=== PATIENT | female | born 1985 ===

== ENCOUNTER 2020-06-20 21:29 | Emergency (ER) | payer OTHER, SELFPAY ==
[2020-06-20 21:36] VITALS: BP 154/88; PULSE 99; RESP 22; TEMP 36.7; O2SAT 94; BMI 25.0
--- NOTE | 2020-06-20 21:44 | XR_ITS ---
EXAMINATION: XR CHEST CLINICAL INFORMATION: Shortness of breath COMPARISON: None TECHNIQUE: Frontal view of the chest was obtained. FINDINGS: No significant abnormality is noted involving the heart, lungs, mediastinum, bony thorax or soft tissues. XR/XR chest 1V IMPRESSION: Unremarkable examination.
--- NOTE | 2020-06-20 21:45 | ECG_ITS ---
Test Reason : SOB Blood Pressure : / mmHG Vent. Rate : 104 BPM Atrial Rate : 104 BPM P-R Int : 146 ms QRS Dur : 074 ms QT Int : 314 ms P-R-T Axes : 035 066 070 degrees QTc Int : 412 ms Sinus tachycardia Otherwise normal ECG No previous ECGs available Referred By: Michael Call Electronically Signed By:DAREN GAUTAM
[2020-06-20] MEDS: methylPREDNISolone Sod Succ/PF 125 MG/2 ML VIAL IVPUSH (21:49)
[2020-06-20 21:54] VITALS: PULSE 127; O2SAT 100
[2020-06-20 21:57] LABS: Basophils Absolute Auto 0.1 X10*3/uL (0.0-0.2); Basophils Percent Auto 0.4 % (0-2); Eosinophils Absolute Auto 1.2 X10*3/uL (0.0-0.4); Eosinophils Percent Auto 9.5 % (0-4); Hematocrit 39.3 % (37-47); Hemoglobin 13.4 g/dl (12.0-16.0); Imm Gran Abs Auto 0.03 X10*3/uL (0.00-0.03); Imm Gran Pct Auto 0.2 % (0.0-0.4); Lymphocytes Absolute Auto 4.7 X10*3/uL (1.2-4.9); Lymphocytes Percent Auto 37.9 % (20-40); MANUAL DIFF FLAG NO; Mean Corpuscular HGB Conc 34.1 g/dl (31.0-35.0); Mean Corpuscular Volume 93.8 fL (80-98); Mean Platelet Volume 9.4 fL (9.4-12.3); Monocytes Absolute Auto 0.7 X10*3/uL (0.1-1.2); Monocytes Percent Auto 5.3 % (2-11); Neutrophils Absolute Auto 5.8 X10*3/uL (2.0-8.3); Neutrophils Percent Auto 46.7 % (45-73); Platelet Count 295 X10*3/uL (160-400); Red Blood Count 4.19 X10*6/uL (4.20-5.50); White Blood Count 12.4 X10*3/uL (4.8-10.8)
[2020-06-20 22:04] VITALS: PULSE 127; O2SAT 100
[2020-06-20] MEDS: Albuterol Sulfate (0.083%) 2.5 MG/3 ML VIAL.NEB INHALE ×2 (22:04→22:15)
[2020-06-20] MEDS: Magnesium Sulfate/H2O 2 GM/50 ML PIGGYBACK IV (22:13)
[2020-06-20 22:15] VITALS: PULSE 137; O2SAT 99
[2020-06-20 22:29] LABS: Alanine Aminotransferase 12 U/L (0-31); Albumin Level 4.3 g/dL (3.5-5.0); Alkaline Phosphatase 67 U/L (39-117); Anion Gap 16 (12-20); Aspartate Amino Transferase 22 U/L (5-31); Bilirubin Total 0.6 mg/dL (0.0-1.0); Blood Urea Nitrogen 15 mg/dL (9-16); Calcium 9.1 mg/dL (8.4-10.2); Carbon Dioxide 22 mmol/L (22-29); Chloride 106 mmol/L (96-108); Creatinine Clr Calc Pharmacy 82.8; Estimated Glomerular Filt Rate > 60; Glucose Fasting 109 mg/dL (60-99); Potassium 3.9 mmol/l (3.3-5.1); Sodium 140 mmol/L (135-145); Total Protein 7.4 g/dL (6.5-8.0)
--- NOTE | 2020-06-20 22:34 | PC.NURSE ---
DECREASED WORK OF BREATHING AND POSITIVE EFFECT NOTED AFTER MEDICATION ADMINISTRATIONS. SINUS TACHYCARDIA ON REAMING MACHINE TENDER 130s AT THIS TIME. ALBUTEROL IN USE. RESPIRATORY THERAPIST REMAINS AT BEDSIDE, AND PATIENT HAS BEEN EVALUATED BY . WILL CONTINUE TO MONITOR.
[2020-06-20 22:39] LABS: Influenza A PCR NEGATIVE (Negative); Influenza B PCR NEGATIVE (Negative); Resp Syncy Virus RNA Qual PCR NEGATIVE (Negative); SARS COV2 PCR INHOUSE NEGATIVE (Negative)
[2020-06-20 22:49] VITALS: BP 132/69; PULSE 115; RESP 20; O2SAT 99
--- NOTE | 2020-06-20 23:04 | ED_ITS ---
HPI - SOB/Dyspnea General Chief Complaint: Dyspnea Stated Complaint: ASTHMA Time Seen by Provider: 06/20/20 21:41 Source: patient Mode of arrival: ambulatory Limitations: no limitations History of Present Illness HPI Narrative: 34-year-old female who presents to the emergency department for evaluation of shortness of breath. The patient has a history of asthma and has an albuterol inhaler and albuterol nebulizer only for treatment. She does not take a steroid inhaler. She states that she went shopping at the [employer] and then came home at around 7:30 p.m.. She states she was sitting at her table and became short of breath. She then used her albuterol nebulizer and albuterol inhaler with no relief for symptoms. Her breathing got more labored therefore she drove herself to the emergency department for evaluation. On presentation to the emergency department the patient was in moderate to severe respiratory distress, talking in 1-2 word sentences, she had lot audible wheezing and was tachypneic. She was brought to a treatment room immediately and evaluated by me upon arrival to the emergency department. The patient states that she uses her albuterol inhaler frequently during the week. She states that she has a chronic cough since October 2019 which is mainly nonproductive. She states that she has frequent episodes of shortness of breath. She denied fever, chills, nausea, vomiting, diarrhea, myalgias or arthralgias, loss of sense of taste or smell, she has no known COVID exposure. She denies tobacco, alcohol and drug use. Related Data Previous Rx's Medication Instructions Recorded albuterol sulfate 2 inh INHALATION Q4H PRN #18 g 06/21/20 albuterol sulfate 2.5 mg INHALATION Q4-6H PRN #90 ml 06/21/20 fluticasone propion-salmeterol 1 inh INHALATION BID #60 ea 06/21/20 [Advair Diskus] fluticasone propionate [Flovent 1 puff INHALATION BID #12 g 06/21/20 HFA] prednisone 60 mg PO DAILY 5 Days #15 tab 06/21/20 Allergies Allergy/AdvReac Type Severity Reaction Status Date / Time No Known Allergies Allergy Verified 06/20/20 21:41 Review of Systems Review of Systems: Yes all other systems are reviewed and are negative Constitutional: Constitutional: Reports as per HPI Eyes: Eyes: Reports as per HPI ENT: Reports as per HPI Cardiovascular: Cardiovascular: Reports as per HPI Respiratory: Respiratory: Reports as per HPI Gastrointestinal: Gastrointestinal: Reports as per HPI Genitourinary: Genitourinary: Reports as per HPI Musculoskeletal: Musculoskeletal: Reports as per HPI Integumentary/Breasts: Skin/Breast: Reports as per HPI Neurologic: Reports as per HPI and Reports Abnormal speech present Psychiatric: Psychiatric: Reports as per HPI Allergic/Immunologic: Allergic/Immunologic: Reports as per HPI [facility] Past Medical History [facility] Narrative: Patient states she is employed. Denies tobacco, alcohol or drug use. Social History Social History Alcohol intake: current Alcohol intake frequency: holidays/special occasions only Smoking Status: Former smoker Smoked in Last 30 Days: No Use of substances other than those prescribed or required for medical reasons: No Advance Directives: No Physical Exam Vital Signs: Vital Signs: Last Vital Signs Temp 98.0 F 06/20/20 21:36 Pulse 106 H 06/21/20 00:00 Resp 18 06/21/20 00:00 BP 116/56 L 06/21/20 00:00 Pulse Ox 97 06/21/20 00:00 Body Mass Index 25.0 Const: General: cooperative, alert, awake and ill appearing (Moderate to severe respiratory distress, talking in 1-2 word sentences) acutely Nutritional Appearance: well nourished Orientation/consciousness: oriented to person and oriented to place HENMT: Head: Yes normal to inspection, Yes normocephalic and Yes atraumatic Ears: external ears normal General nose exam: Normal external nose present Face and sinus: Yes normal facial exam Mouth: Normal oral and palatal mucosa present Throat: Yes posterior oropharynx normal Eyes: General: appearance normal, both eyes and all related structures Periorbital: periorbital findings normal Eyelids: Yes eyelids normal Conjunctivae: conjunctivae normal Sclerae: sclerae normal Corneas: corneas normal Pupils: Equal, round and reactive pupils present Direct Ophth almoscopy: normal light reflex Neck: Neck: Yes normal visual inspection and Yes supple Lymphatic: no lymphadenopathy noted Chest: Chest palpation & inspection: normal inspection of the chest and normal palpation of entire chest wall Resp: Effort & Inspection: audible wheezes, labored, respiratory distress and tachypneic Auscultation: no crackles, no rales, rhonchi throughout and wheezes throughout Cardio: Rate: regular rate Rhythm: regular rhythm Heart sounds: S1 normal heart sound present, S2 normal heart sound present and no murmurs GI: Inspection: No distended Palpation (GI): Soft to palpation, nontender, no guarding and No hepatosplenomegaly present Auscultation: normal bowel sounds : General: Yes no CVA tenderness Back/Spine/Pelvis: Back: no CVA tenderness Skin: General skin exam: no rashes or lesions noted Lesions: no lesions Rashes: no rashes Wounds: no wounds Neuro: General: oriented to person and oriented to place Cranial nerves: Yes CN's II-XII intact bilaterally and Yes Equal, round and reactive pupils present Cognition (Neuro): normal cognition Speech: Abnormal speech present Motor exam (neuro): 5/5 motor strength present throughout Extrem: General: Yes normal to inspection, Yes full ROM, Yes no pedal edema and Yes no calf tenderness Psych: Appearance: grossly normal Mental Status: mental status grossly normal Affect: Anxious affect present Thought process: Normal thought process present Course Course Course Narrative: 34-year-old female with a history of asthma who presents to the emergency department for evaluation of a sudden onset shortness of breath with wheezing. On presentation the patient was in moderate to severe respiratory distress, talking in 1-2 word sentences, tachypneic with loud audible wheezing. Lung exam revealed wheezing and rhonchi throughout. The patient was brought immediately to a treatment room. She was treated with albuterol nebulizer x3, DuoNeb x1, these medicines were given through a BAN nebulizer. She also received magnesium 2 g IV. The patient significantly improved after the above treatment and her wheezing and tachypnea resolved. 0023: Patient's laboratory evaluation [place] [id number] with otherwise was unremarkable. The patient's COVID, influenza and RSV tests were negative. Chest x-ray revealed no evidence of pneumonia. The patient was observed in the emergency department for 3 hours and during this time she had no rebound. The patient will be treated with prednisone 60 mg once a day for 5 days. She was also given a prescription for Flovent and Advair Diskus. I told her that if the Advair Diskus was not covered by her insurance that she should get the Flovent filled and use it as prescribed. Patient also needs a refill on her albuterol inhaler and albuterol nebulizer. Critical Care: The patient was critically ill with a high probability of imminent or life threatening deterioration. I spent greater than 30 minutes of discontinuous time evaluating the patient,delivering critical care at the bedside, discussing and evaluating pertinent data with consultants. Critical care time does not include time spent performing separately billable procedures or teaching. Total time spent performing critical care was 45 minutes. MDM - SOB/Dyspnea Medical Records Attestation: I reviewed the patient's medical records. Lab Data Attestation: I reviewed the patient's lab results. Result diagrams: 06/20/20 21:46 06/20/20 21:46 Labs: Lab Results 06/20/20 06/20/20 06/20/20 Range/Units 21:46 21:46 21:48 WBC 12.4 H (4.8-10.8) X10*3/uL RBC 4.19 L (4.20-5.50) X10*6/uL Hgb 13.4 (12.0-16.0) g/dl Hct 39.3 (37-47) % MCV 93.8 (80-98) fL MCH 32.0 (27.0-33.0) pg MCHC 34.1 (31.0-35.0) g/dl RDW 12.0 (11.0-16.0) % Plt Count 295 (160-400) X10*3/uL MPV 9.4 (9.4-12.3) fL Immature Gran % (Auto) 0.2 (0.0-0.4) % Neut % (Auto) 46.7 (45-73) % Lymph % (Auto) 37.9 (20-40) % Cochran % (Auto) 5.3 (2-11) % Eos % (Auto) 9.5 H (0-4) % Baso % (Auto) 0.4 (0-2) % Lymph # (Auto) 4.7 (1.2-4.9) X10*3/uL Cochran # (Auto) 0.7 (0.1-1.2) X10*3/uL Eos # (Auto) 1.2 H (0.0-0.4) X10*3/uL Baso # (Auto) 0.1 (0.0-0.2) X10*3/uL Abs Immat Gran (auto) 0.03 (0.00-0.03) X10*3/uL Absolute Neuts (auto) 5.8 (2.0-8.3) X10*3/uL Absolute Nucleated RBC 0.000 (0.0-0.012) X10*3/uL Nucleated RBC % (auto) 0.0 (0.0-0.2) /100WBC Sodium 140 (135-145) mmol/L Potassium 3.9 (3.3-5.1) mmol/l Chloride 106 (96-108) mmol/L Carbon Dioxide 22 (22-29) mmol/L Anion Gap 16 (12-20) BUN 15 (9-16) mg/dL Creatinine 0.87 (0.5-1.4) mg/dL Estim Creat Clear Calc 82.8 Estimated GFR > 60 Fasting Glucose 109 H (60-99) mg/dL Calcium 9.1 (8.4-10.2) mg/dL Total Bilirubin 0.6 (0.0-1.0) mg/dL AST 22 (5-31) U/L ALT 12 (0-31) U/L Alkaline Phosphatase 67 (39-117) U/L Total Protein 7.4 (6.5-8.0) g/dL Albumin 4.3 (3.5-5.0) g/dL Coronavirus (PCR) NEGATIVE (Negative) Influenza Type A (PCR) NEGATIVE (Negative) Influenza Type B (PCR) NEGATIVE (Negative) RSV RNA Qual (PCR) NEGATIVE (Negative) ECG Data Attestation: I personally reviewed and interpreted this ECG as follows: ECG interpretation date: 06/20/20 ECG interpretation time: 21:45 Prior ECG tracings: not available for review Interpretation: Sinus tachycardia with a rate of 104, normal [place], QRS and QTC intervals, no T-wave abnormalities, no ST segment elevation or depression. No old EKG for comparison. Discharge Plan Discharge Clinical Impression: Asthma with exacerbation Qualifiers: Asthma severity: severe Asthma persistence: unspecified Qualified Code(s): J45.901 - Unspecified asthma with (acute) exacerbation Patient Disposition: Home, Self-Care Instructions: Asthma (ED) Additional Instructions: Your blood work was unremarkable. Your chest x-ray was normal with no evidence of pneumonia. Your COVID-19 and influenza test were negative. Take prednisone 60 mg once a day for 5 days. I gave you a prescription for Flovent and Advair Diskus. If your insurance does not cover the Advair Diskus medication then get the Flovent filled instead. Continue to use your albuterol rescue inhaler and your albuterol nebulizer as prescribed. Follow-up with your doctor in 2 days for re-evaluation. Please return to the emergency department if your symptoms get worse or if you develop any new symptoms that are concerning to you. Prescriptions: New fluticasone propion-salmeterol [Advair Diskus] 250-50 mcg/dose blister with device 1 inh inhalation BID Qty: 60 RF: 0 Flovent HFA 220 mcg/actuation HFA aerosol inhaler 1 puff inhalation BID Qty: 12 RF: 0 albuterol sulfate 2.5 mg /3 mL (0.083 %) solution for nebulization 2.5 mg inhalation Q4-6H PRN (Reason: shortness of breath or wheezing) Qty: 90 RF: 0 albuterol sulfate 90 mcg/actuation HFA aerosol inhaler 2 inh inhalation Q4H PRN (Reason: shortness of breath or wheezing) Qty: 18 RF: 0 prednisone 20 mg tablet 60 mg PO DAILY 5 Days Qty: 15 RF: 0 Interventions: ED Discharge Assessment Last Done: 06/21/20 00:45 Discharge Date/Time: 06/21/20 00:46
[2020-06-21] VITALS: BP 116/56; PULSE 106; RESP 18; O2SAT 97
[2020-06-21] MEDS: Ibuprofen 600 MG TABLET PO (00:33)
== END 2020-06-21 00:46 | disposition home or self-care (01) ==
PROVIDERS: Emergency Provider Emergency Medicine Emergency Medical Services
DX: J45.51 Severe persistent asthma with (acute) exacerbation (principal); Z20.828 Contact with and (suspected) exposure to other viral communicable diseases; Z79.899 Other long term (current) drug therapy; Z87.891 Personal history of nicotine dependence
CPT/HCPCS: 0241U; 36415; 71045; 80053; 85025; 93005; 94640; 99284; J2930; J3475

== ENCOUNTER 2021-09-17 08:07 | Outpatient (REF) | payer OTHER, SELFPAY ==
--- NOTE | ~2021-09-17 | MR_ITS ---
EXAMINATION: MR BRAIN WITHOUT AND WITH CONTRAST CLINICAL INFORMATION: Headache. COMPARISON: None. TECHNIQUE: Multiplanar, multisequence imaging of the brain was performed before and after the intravenous administration of 6 mL of Gadavist. FINDINGS: No diffusion abnormalities are identified to suggest an acute infarct. The ventricles are normal in size. No mass effect or midline shift is seen. A few scattered punctate foci of T2 hyperintense signal change in the bifrontal white matter are nonspecific. No extra-axial fluid collections are seen. The brainstem and cerebellum are normal. There is no abnormal parenchymal or leptomeningeal enhancement. The gradient refocused acquisition demonstrates no pathologic magnetic susceptibility artifact to indicate underlying acute or chronic blood products. On the coronal T1 postcontrast acquisition, series 10, image 19/30, there is a questionable 3 mm focus of decreased differential enhancement in the left lateral aspect of the anterior pituitary lobe. This finding may alternatively be due to volume averaging artifact from the underlying sphenoid sinus cavity. The craniovertebral junction, marrow signal, and midline structures are normal. The major intracranial flow voids at the level of the [place] are preserved. The dural venous sinus flow voids are maintained. The mastoid air cells are well aerated. Mild ethmoid sinus mucosal thickening noted. MR/MR head/brain wo/w con IMPRESSION: No acute process. Question of a 3 mm lesion in the left lateral aspect of the anterior pituitary lobe versus volume averaging artifact. Suggest correlation with endocrine function as clinically warranted. If there is concern for a microadenoma, a dedicated pituitary MRI study could be obtained in follow-up for further evaluation.
== END 2021-09-17 08:08 | disposition home or self-care (01) ==
LOC: HO.MRI 08:07
PROVIDERS: Visit Provider Internal Medicine
DX: R51.9 Headache, unspecified (principal)
CPT/HCPCS: 70553; A9585

== ENCOUNTER → 2021-09-19 08:29 | Outpatient (BNVA) | payer OTHER, SELFPAY | PROVIDERS: PCP Internal Medicine; Visit Provider Psychiatry & Neurology Neurology ==

== ENCOUNTER 2021-10-06 13:34 | Outpatient (REF) | payer OTHER, SELFPAY | END 2021-10-06 13:35 | disposition home or self-care (01) | LOC: HO.HMGCLDS 13:34 | PROVIDERS: Visit Provider Internal Medicine | DX: Z13.89 Encounter for screening for other disorder (principal) ==

== ENCOUNTER 2021-10-11 09:02 | Outpatient (REF) | payer OTHER, SELFPAY ==
[2021-10-11 10:53] LABS: TSH reflex Free T4 0.68 uIU/mL (0.32-4.0)
[2021-10-12 08:31] LABS: Prolactin 11.5 ng/mL
[2021-10-14 18:17] LABS: Adrenocorticotropic Hormone 12 pg/mL (6-50)
[2021-10-16 14:26] LABS: IGF-1 (Somatomedin C) 110 ng/mL (53-331); IGF-1 Z Score (Female) -0.6 SD (-2.0 - +2.0)
== END 2021-10-11 09:03 | disposition home or self-care (01) ==
LOC: HO.LAB 09:02
PROVIDERS: PCP Internal Medicine; Visit Provider Internal Medicine
DX: R90.89 Other abnormal findings on diagnostic imaging of central nervous system (principal)
CPT/HCPCS: 36415; 82024; 84146; 84305; 84443

== ENCOUNTER → 2021-10-17 08:03 | Outpatient (BNVA) | payer OTHER, SELFPAY | PROVIDERS: PCP Internal Medicine; Referring Provider Internal Medicine; Visit Provider Nurse Practitioner | DX: Z13.89 Encounter for screening for other disorder (principal) ==

== ENCOUNTER → 2021-11-13 16:01 | Outpatient (REF) | payer OTHER, SELFPAY | LOC: HO.SL 16:01 | PROVIDERS: PCP Internal Medicine; Visit Provider Psychiatry & Neurology Neurology | DX: R06.83 Snoring (principal); G47.9 Sleep disorder, unspecified | CPT/HCPCS: 95806 ==

== ENCOUNTER → 2021-11-26 08:54 | Outpatient (BNVA) | payer OTHER, SELFPAY | PROVIDERS: PCP Internal Medicine; Visit Provider Psychiatry & Neurology Neurology | DX: R51.9 Headache, unspecified (principal) ==

== ENCOUNTER → 2021-11-28 16:15 | Outpatient (BNVA) | payer OTHER, SELFPAY | PROVIDERS: PCP Internal Medicine; Referring Provider Internal Medicine; Visit Provider Nurse Practitioner | DX: R13.10 Dysphagia, unspecified (principal) ==

== ENCOUNTER 2022-01-14 14:34 | Outpatient (REF) | payer OTHER, SELFPAY ==
--- NOTE | ~2022-01-14 | FL_ITS ---
EXAMINATION: FL MODIFIED BARIUM SWALLOW CLINICAL INFORMATION: R13.10 - Dysphagia, unspecified COMPARISON: None TECHNIQUE: Modified barium swallow examination is performed with imaging in the lateral view and the presence of the speech pathologist using a variety of barium consistencies. Barium pill also used. The exam is performed with fluoroscopic evaluation, videofluoroscopy, and some fluoroscopic spot views. Fluoroscopy time: 1.9 minutes DAP: 1.517 Gycm2 Fluoroscopic spot images: 1 FINDINGS: There is good oral control of the meal. No nasopharyngeal or laryngeal penetration. No aspiration. There is some intermittent mild undercoating of the epiglottis during swallowing. No laryngeal penetration. There is some intermittent posterior lingual escape with material pooling in the vallecula prior to initiation of active swallowing. No delay in transit of swallowed barium pill. See speech pathologist report for further assessment and recommendation. FL/FL barium swallow modified IMPRESSION: -Intermittent mild undercoating of epiglottis during swallowing. No laryngeal penetration or aspiration. -Intermittent posterior lingual escape with contrast pooling in vallecula prior to initiation of active swallowing. -See speech pathologist report for further assessment and recommendation.
--- NOTE | 2022-01-16 13:45 | MHC.SL.IMP ---
Date of Plan of Treatment: 01/14/22 Onset of Symptoms/Illness: 01/15/20 Date Treatment Started: 01/14/22 Admitting Diagnosis: Anxiety Asthma Depression Dysphagia Glaucoma Headache Primary Speech & Language Diagnosis: R13.12 Oropharyngeal Phase Dysphagia Reason for Today's Visit: 53507 Modified Barium Swallow Study Pre-evaluation Dietary Consistencies: Regular Pre-evaluation Liquid Consistency: Thin Pre-evaluation Medication Administration: Whole with Liquid Medical History: Modified Barium Swallow Study Fluoroscopic Evaluation of Swallowing Function CPT Code 96360 Evaluation Year: 2021 Reason for Study: Patient reports difficulty swallowing. Referring Physician: Oralia Luna NP Evaluating Clinician: Niharika Tellez MA, CCC-CUSTOMER SERVICE MANAGER Study Number: 1 Patient Name: Sandhya Pearson Status: Outpatient, Ambulatory Age: 36 Gender: Female MEDICAL HISTORY: Year of Onset or Diagnosis: 2021 Comorbidities: Anxiety Asthma Depression Dysphagia Glaucoma Headache Current (pre-evaluation) Intake/Diet: Route: PO Diet Grade: Regular Liquid Consistencies: Thin Pre-Study Functional Oral Intake Scale (FOIS): 7- Total oral intake with no restrictions Pain: Chronic/Ongoing reported at time of study, Throat, rated 5 on scale 0-10 Oral Motor Exam Facial Symmetry: Symmetrical Mouth Occlusion: Normal Oral-Facial Teeth Characteristics: Intact/Normal Oral-Facial Smile (Lips) Description: Normal Oral-Facial Puff Cheeks Description: Normal Tongue Size: Normal Tongue Excursion Description: Normal Tongue Range of Movement Description: Normal Tongue Speed of Movement Description: Normal Tongue Strength of Movement (against opposing pressure): Normal Tongue Movement Characteristics: Normal/Absent Is patient able to manage secretions?: Yes Food and Liquid Trials: Oral Impairment: Lip Closure: Did not test Oral Impairment: Tongue Control During Bolus Hold: 2=Posterior escape of less than half of bolus Oral Impairment: Bolus Preparation/Mastication: 0=Timely and efficient chewing and mashing Oral Impairment: Bolus Transport/Lingual Motion: 1= Delayed initiation of tongue motion Oral Impairment: Oral Residue: 0=Complete oral clearance Oral Impairment:Initiation of Pharyngeal Swallow: 1=Bolus head in valleculae Pharyngeal Impairment: Soft Palate Elevation: 0=No bolus between soft palate (SP)/pharyngeal wall (PW) Pharyngeal Impairment: Laryngeal Elevation: 0=Complete superior movement of thyroid cartilage (see description) Pharyngeal Impairment: Anterior Hyoid Excursion: 0=Complete anterior movement Pharyngeal Impairment: Epiglottic Movement: 1=Partial inversion Pharyngeal Impairment: Laryngeal Vestibular Closure:: 0=Complete: no air/contrast in laryngeal vestibule Pharyngeal Impairment: Pharyngeal Stripping Wave: 0=Present: complete Pharyngeal Impairment: Pharyngeal Contraction: Did not test Pharyngeal Impairment: Pharyngoesophageal Segment Openin=Complete distension and complete duration: no obstruction of flow Pharyngeal Impairment: Tongue Base (TB) Retraction: 1=Trace column of contrast/air between TB and posterior PW Pharyngeal Impairment: Pharyngeal Residue: 1=Trace residue within or on pharyngeal structures Pharyngeal Impairment: Esophageal Clearance Upright Position: Did not test Impressions and Recommendations Clinical Observations: OBJECTIVE: Time-out: performed at 02:45 Evaluation Start: 02:30; Stop: 02:40 Patient Positioning: Standing Viewing Planes: LATERAL ONLY Contrast: MBSImP? Standardized Protocol using commercially prepared, standardized Barium viscosities, including: Varibar? THIN LIQUID (40% w/v, <15 cps) , 1/2 Shortbread Cookie (1 x1 x.25 ) MBSImP ID: [id number] MBSImP Results: Lip closure for intraoral bolus containment could not be assessed due to logistical reasons not related to physiologic impairment. Tongue control during bolus hold resulted in posterior escape of less than half of the bolus. Bolus preparation and mastication resulted in timely and efficient chewing and mashing. Bolus transport/lingual motion demonstrated delayed initiation of tongue motion. Oral residue was not observed. There was complete oral clearance. Initiation of the pharyngeal swallow occurred when the bolus head was in the valleculae. Soft palate elevation resulted in no bolus between the soft palate and the pharyngeal wall. Laryngeal elevation demonstrated complete superior movement of the thyroid cartilage with complete approximation of the arytenoids to the epiglottic petiole. Anterior hyoid excursion demonstrated complete anterior movement. Epiglottic movement resulted in partial inversion. Laryngeal vestibular closure was complete, as indicated by no air or contrast within the laryngeal vestibule at the height of the swallow. Pharyngeal stripping wave was present and complete. Pharyngeal contraction could not be determined due to logistical reasons not related to physiologic impairment. Pharyngoesophageal segment opening was completely distended for complete duration with no obstruction of bolus flow. Tongue base retraction allowed a trace column of contrast or air between the retracted tongue base and the posterior pharyngeal wall. Pharyngeal residue was a trace within or on pharyngeal structures. Esophageal clearance in the upright position could not be assessed due to logistical reasons not related to physiologic impairment. Oral Impairment Score: 4 (absence of score, component 1) Pharyngeal Impairment Score: 1 (absence of score, component 13) Esophageal Impairment Score: --- (absence of score, component 17) Laryngeal Penetration and Aspiration: Neither penetration nor aspiration was observed in today's study with Cookie, Thin. ASSESSMENT: Clinician Assessment: This exam was conducted by a multidisciplinary team, which included a speech pathologist, radiologist, and neurophysiological technician. Imaging was taken in lateral view. Patient trialed the following liquid and solid consistencies: thin liquid barium by cup, pureed solid (mixture applesauce with barium paste), ground solid (chicken salad with barium paste), regular solid (Lina Doone cookie coated with barium paste), barium pill tablet washed with thin liquid barium. Mastication was timely and efficient, resulting in complete oral clearance. When drinking liquid, there was premature posterior escape of trace amount of liquid during bolus hold maneuver. Trace amount of liquid collected in the valleculae and pyriform sinuses prior to the initiation of the pharyngeal swallow. Posterior lingual movement for bolus transport was delayed. Pharyngeal swallow trigger initiated as bolus head reached valleculae. No evidence of nasopharyngeal reflux. Complete laryngeal elevation with complete anterior hyoid excursion. Epiglottic inversion was partial, with trace coating of contrast on posterior epiglottis. Nevertheless, laryngeal vestibular closure was complete. There was no evidence of tracheal aspiration or penetration during this exam. Good clearing of valleculae and pyriform sinuses. Trace residue on pharyngeal wall cleared with subsequent swallow. There was no obstruction of flow through pharyngoesophageal segment opening. Barium pill tablet washed with liquid passed through the pharynx to the esophagus. Patient was observed to clear her throat throughout the exam. Liquid Intake Recommendation: Thin Liquid Intake Strategies: Small Sips Dietary Recommendations: Regular Medication Administration: Whole with Liquid Please contact the pharmacy regarding appropriate crushable or liquid drug formulations that are available whenever modified delivery is recommended. Compensatory Strategies Recommended: Sitting Upright (90 deg), Small Bites and Sips, Alternate Liquids/Solids, Rate of Ingestion Change Supervision during eating and or drinking: None Needed Recommendation for Speech Therapy: PLAN: Intake Recommendations: Route: PO Diet Grade: Regular Liquid Consistencies: Thin Post-Study Functional Oral Intake Scale (FOIS): 7- Total oral intake with no restrictions Noted premature posterior escape trace amount of liquid, delayed AP transport, trace coating of contrast on posterior epiglottis. While patient was observed to clear her throat throughout the exam and reported minimal globus sensation, imaging did not show any evidence of tracheal aspiration or penetration during this exam; There was good oral and pharyngeal clearance. Question if throat clearing is possibly a sensory response to bolus passing through oropharynx. Recommend continue workup with G.I., patient may also benefit from ENT consult if indicated. Suggested Referrals: The patient might benefit from a referral to: Gastroenterology Indication for Referral: Continue workup Otolaryngology Indication for Referral: Throat clearing while eating; patient?s report of throat pain/discomfort. Therapy Recommendations: Therapy will be discontinued Prognosis for Improvement: The prognosis for the patient to meet nutritional needs by mouth is excellent based on degree of impairment. Correction Goals: ? The patient and/or family will participate in further education for swallowing goals. 1 CUSTOMER SERVICE MANAGER f/u visit if indicated to discuss MBSS results with patient. Clinician - Supplemental, Miscellaneous Communication: It is important to note MBSS objective studies are snapshots in time and Patient function might vary with factors such as time of day or concomitant medical conditions. For this reason, the final treatment plan for this patient should rest with their medical care team. Additional recommendations should be considered with the totality of the Patient in mind. Thank for the opportunity to participate in the care of this patient. If you have any questions about the content of this report, please contact the [facility] at [facility]. Education: Education regarding findings from today's study and plans for therapy were provided to Patient only through Verbal Instruction. Understanding was expressed by the Patient only. Mine Inspector Federal Clinician/Clinical Fellow: No Supervisory Statement: N/A Speech Language Pathologist: Niharika Tellez M.A., [facility]-CUSTOMER SERVICE MANAGER
== END 2022-01-14 14:35 | disposition home or self-care (01) ==
LOC: HO.XRAY 14:34
PROVIDERS: Visit Provider Nurse Practitioner
DX: R13.12 Dysphagia, oropharyngeal phase (principal)
CPT/HCPCS: 74230; 92611

== ENCOUNTER → 2022-07-01 15:31 | Outpatient (BNVA) | payer OTHER, SELFPAY | PROVIDERS: PCP Internal Medicine; Visit Provider Nurse Practitioner Family | DX: G43.709 Chronic migraine without aura, not intractable, without status migrainosus (principal) ==

== ENCOUNTER 2022-07-23 14:19 | Outpatient (REF) | payer OTHER, SELFPAY | END 2022-07-23 14:20 | disposition home or self-care (01) | LOC: HO.LNP 14:19 | PROVIDERS: Visit Provider Internal Medicine | DX: Z13.89 Encounter for screening for other disorder (principal) ==

== ENCOUNTER 2022-07-25 08:52 | Outpatient (REF) | payer OTHER, SELFPAY ==
[2022-07-25 11:09] LABS: MANUAL DIFF FLAG NO
[2022-07-25 11:21] LABS: Basophils Absolute Auto 0.1 X10*3/uL (0.0-0.2); Basophils Percent Auto 0.9 % (0-2); Eosinophils Absolute Auto 0.3 X10*3/uL (0.0-0.4); Eosinophils Percent Auto 4.1 % (0-4); Hematocrit 41.6 % (37.0-47.0); Hemoglobin 13.9 g/dl (12.0-16.0); Imm Gran Abs Auto 0.01 X10*3/uL (0.00-0.03); Imm Gran Pct Auto 0.1 % (0.0-0.4); Lymphocytes Absolute Auto 3.4 X10*3/uL (1.2-4.9); Lymphocytes Percent Auto 49.8 % (20-40); Mean Corpuscular HGB Conc 33.4 g/dl (31.0-35.0); Mean Corpuscular Volume 92.9 fL (80.0-98.0); Mean Platelet Volume 9.8 fL (9.4-12.3); Monocytes Absolute Auto 0.5 X10*3/uL (0.1-1.2); Monocytes Percent Auto 6.6 % (2-11); Neutrophils Absolute Auto 2.6 x10*3/uL (2.0-8.3); Neutrophils Percent Auto 38.5 % (45-73); Platelet Count 311 X10*3/uL (160-400); Red Blood Count 4.48 X10*6/uL (4.20-5.50); White Blood Count 6.8 X10*3/uL (4.8-10.8)
[2022-07-25 11:33] LABS: Alanine Aminotransferase 19 U/L (0-31); Albumin Level 4.2 g/dL (3.5-5.0); Alkaline Phosphatase 65 U/L (39-117); Anion Gap 11 (12-20); Aspartate Amino Transferase 24 U/L (5-31); Bilirubin Total 0.7 mg/dL (0.0-1.0); Blood Urea Nitrogen 11 mg/dL (9-16); Calcium 9.5 mg/dL (8.4-10.2); Carbon Dioxide 25 mmol/L (22-29); Chloride 107 mmol/L (96-108); Cholesterol 208 mg/dL; Estimated Glomerular Filt Rate > 60; Glucose Fasting 86 mg/dL (60-99); HDL Cholesterol 55 mg/dL; LDL Cholesterol Calculated 139 mg/dl; Potassium 4.3 mmol/L (3.3-5.1); Sodium 139 mmol/L (135-145); Total Protein 7.1 g/dL (6.5-8.0); Triglycerides 71 mg/dL
== END 2022-07-25 08:53 | disposition home or self-care (01) ==
LOC: HO.HMGCLDS 08:52
PROVIDERS: PCP Internal Medicine; Visit Provider Internal Medicine
DX: Z00.00 Encounter for general adult medical examination without abnormal findings (principal)
CPT/HCPCS: 36415; 80053; 80061; 85025

== ENCOUNTER 2022-08-04 14:42 | Outpatient (REF) | payer OTHER, SELFPAY ==
[2022-08-07 05:13] LABS: HPV mRNA E6/E7 Not Detected (Not Detected)
== END 2022-08-04 14:43 | disposition home or self-care (01) ==
LOC: HO.LNP 14:42
PROVIDERS: Visit Provider Internal Medicine
DX: Z01.419 Encounter for gynecological examination (general) (routine) without abnormal findings (principal); Z11.51 Encounter for screening for human papillomavirus (HPV)
CPT/HCPCS: 87624; 88142

== ENCOUNTER → 2022-08-05 14:26 | Outpatient (BNVA) | payer OTHER, SELFPAY | PROVIDERS: PCP Internal Medicine; Visit Provider Nurse Practitioner Family | DX: Z13.89 Encounter for screening for other disorder (principal) ==

== ENCOUNTER → 2022-09-14 13:25 | Outpatient (BNVA) | payer OTHER, SELFPAY | PROVIDERS: PCP Internal Medicine; Visit Provider Nurse Practitioner Family | DX: Z13.89 Encounter for screening for other disorder (principal) ==

== ENCOUNTER → 2022-09-29 15:09 | Outpatient (BNVA) | payer OTHER, SELFPAY | PROVIDERS: PCP Internal Medicine; Visit Provider Advanced Practice Midwife | DX: Z13.89 Encounter for screening for other disorder (principal) ==

== ENCOUNTER 2022-10-12 15:00 | Outpatient (RCR) | payer OTHER, SELFPAY ==
--- NOTE | 2022-09-03 16:33 | MHC.PT.EP ---
[facility] [place] Office [place] Office [place] Office [address] [phone] F: [phone] F: [phone] F: [phone] F: [phone] Physical Therapy Plan of Care Date of Evaluation: Date of Surgery: Diagnosis: Migraine Assessment: Pt is a 36 y/o female referred to PT for eval and treat of migraine resulting in decreased tolerance for concentration and computer work/ reading, performing recreational activities, and completing work tasks secondary to increased cervical accessory mms, decreased sitting posture, and constant NARANJO. Pt is deemed an appropriate candidate to receive skilled PT services to address their physical impairments in order to improve their functional ability. Frequency and Duration: The patient will be seen 2 x/ wk x 5 wks. Short Term Goals: Initiate HEP. Improve baseline pain from 9/10 to < 6/10. [employer] Paraprofessional Goals: I with HEP and postural ed for desk work. Pt will at most report moderate NARANJO which occur infrequently; initial: has intense NARANJO frequently. Pt will report able to concentrate when she wants to with slight difficulty; initial: has a fair degree of difficulty concentrating when she wants to. Treatment Plan: Modalities to reduce pain, spasms and effusion. Manual therapy to restore motion and function. Therapeutic exercise to improve strength and flexibility. Neuromuscular re-education for posture and balance. Therapeutic activities to return to functional activities of daily living. Electronically signed by: Dave Zelaya PT. Please sign and return to therapist. Thank you for your referral.
--- NOTE | 2022-10-12 16:57 | MHC.PT.DC ---
[facility] [place] Office [place] Office [place] Office [address] Kwame Johnson [address] [phone] F: [phone] F: [phone] F: [phone] F: [phone] Physical Therapy Discharge Report Diagnosis: Migraine Date of Surgery: Date of Evaluation: 09/03/22 Date of Discharge: 10/12/22 Treatments to Date: 6 Cancellations to Date: 1 No Shows to Date: Discharge Status: Independent with HEP Recommend MD Follow-up Discharge Summary: 4.3: Program reviewed. Sandhya has been an active and motivated participant in her therapy in and out of the clinic. Pt reports she found work around posture, cervical tension, cervical stability, and scapular strengthening helpful, however her NARANJO/ migraine symptoms are unchanged and her goals reflecting change in the intensity and frequency of her migraines. Pt is recommended to FU with her MD as therapy has not been effective in this case to improve her function. Electronically signed by: Dave Zelaya PT. Please sign and return to therapist. Thank you for your referral.
== END 2022-10-12 16:58 | disposition home or self-care (01) ==
LOC: HO.PTCHIC 15:00
PROVIDERS: PCP Internal Medicine; Visit Provider Nurse Practitioner Family
DX: G43.709 Chronic migraine without aura, not intractable, without status migrainosus (principal)
CPT/HCPCS: 97110; 97140; 97162

== ENCOUNTER 2022-12-30 14:29 | Outpatient (AMB) | payer OTHER, SELFPAY ==
--- NOTE | 2022-12-30 14:35 | A.OFFVIS_ITS ---
Intake Vital Signs 12/30/22 14:36 Height 5 ft 3 in Weight 150 lb BMI 26.6 BP 114/78 Blood Pressure Location Lt brachial Position Sitting Pulse 80 Pulse Source Pulse Oximeter Pulse Oximetry (%) 98 Intake Visit Reasons: 2M FOLLOW [id number] Intake Note: Patient presents for 2 month follow up Allergies No Known Allergies Allergy (Verified 12/30/22 14:38) HPI HPI Comments History of Present Illness Details 37 y/o female patient presents for follow up of chronic migraine with tension headache. Pt reports that she needed to off at least 1-2 days/week for headache with Nurtec. She feels a little improvement in intensity with Qulipta but having mild nausea. She still she gets 4-5 migraine days/month with daily tension headache. Pt does not like to use rizatriptan, it caused her drowsy. Pt stopped taking Nurtec, it does not help to prevent migraine or reduce pain. Emgality injection and gabapentin discontinued. She is on magnesium 400 mg QHS, vitamin B2 400 mg daily. Pt thinks that work related stress triggers her headache and plans to change her job. Pt sees the therapist to manage stress and anxiety. She tried Emgality, amitriptyline and tipiramate 50 mg but failed to prevent headache. Pt also diagnosed with glaucoma. Pt also has asthma, not candidate for propranolol. Brain MRI ordered, but pt does not want to do it at this time. 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 Alcohol intake: current Alcohol intake frequency: holidays/special occasions only Patient Tobacco Use Status: Former Tobacco user Tobacco use type: Cigarette Years Smoked: 5 years e-Cigarette/Vaping Use: Former Use service: No Current occupational status: employed Cognitive needs: No Hearing needs: No Vision needs: Yes Female Reproductive History Menstrual Age of Menarche: 14 Review of Systems Const All systems reviewed & are unremarkable except as noted in HPI and below ENT Reports Normal hearing present Neuro Reports Normal hearing present Physical Exam Vital Signs: Last Vital Signs Pulse 80 12/30/22 14:36 BP 114/78 12/30/22 14:36 Pulse Ox 98 12/30/22 14:36 BMI result Body Mass Index 26.6 Const General: cooperative, healthy appearing, comfortable, no acute distress and anxious Nutritional Appearance: average body habitus Orientation/consciousness: patient oriented x3 Eyes Pupils: Equal, round and reactive pupils present Neck Other: tight neck muscles Neck: Yes normal visual inspection Neuro General: patient oriented x3, gait normal, tone normal, moves all extremities, no focal motor deficits and CN's II-XI intact bilaterally Cranial nerves: Yes Facial sensation intact/muscles of mastication intact, Yes Equal, round and reactive pupils present, Yes Bilaterally intact EOM present, Yes Normal facial strength present, Yes Midline tongue present, Yes Symmetric palate elevation present, Yes Normal hearing present, Yes Ability to bilaterally rotate head present and Yes Ability to bilaterally elevate shoulders present Cognition (Neuro): normal cognition Motor exam (neuro): 5/5 motor strength present throughout and no tremor noted Psych Other: anxious Appearance: grossly normal Speech and movement: Normal speech and movement present Affect: normal affect Attitude: cooperative Assessment & Plan Assessment & Plan (1) Cervicalgia of enfmzlrc-yzywsdj-ekdwp region: Code(s): M54.2 - Cervicalgia (2) MRI of brain abnormal: Code(s): R90.89 - Other abnormal findings on diagnostic imaging of central nervous system (3) Chronic migraine without aura: Code(s): G43.709 - Chronic migraine without aura, not intractable, without status migrainosus (4) Chronic daily headache: Code(s): R51.9 - Headache, unspecified Plan Continue to take mganesium 400 mg qHS, vitamin B2 400 mg q daily for migraine prevention. Continue to take Qulipta 30 mg q daily. May use zofran for nausea as needed. Rizatriptan makes her drowsy, and may use as needed after work. Advised patient to under brain pituitary MRI for f/u. Medications: New ondansetron 4 mg PO Q8H PRN 14 tabs 2RF nausea and vomiting 30 days Discontinued rimegepant Discontinued Reason: Doctor's Order 75 mg PO Q OTHER DAY 30 days PRN 16 tabs 2RF migraine headache Coding Level of Care Code Est Pt Level 4 (63344) Diagnoses Cervicalgia of iwaudhay-zjmwnal-bflxr region M54.2 MRI of brain abnormal R90.89 Chronic migraine without aura G43.709 Chronic daily headache R51.9
[2022-12-30 14:36] VITALS: BP 114/78; PULSE 80; O2SAT 98; BMI 26.6
== END 2022-12-30 15:18 | disposition home or self-care (01) ==
LOC: HO.HSMS 14:29
PROVIDERS: PCP Internal Medicine; Visit Provider Nurse Practitioner Family
DX: M54.2 Cervicalgia (principal); R90.89 Other abnormal findings on diagnostic imaging of central nervous system; G43.709 Chronic migraine without aura, not intractable, without status migrainosus; R51.9 Headache, unspecified
CPT/HCPCS: 99214

== ENCOUNTER → 2022-12-30 14:29 | Outpatient (BNVA) | payer OTHER, SELFPAY | PROVIDERS: PCP Internal Medicine; Visit Provider Nurse Practitioner Family | DX: R90.89 Other abnormal findings on diagnostic imaging of central nervous system (principal); G43.709 Chronic migraine without aura, not intractable, without status migrainosus; R51.9 Headache, unspecified ==

== ENCOUNTER 2023-02-18 08:54 | Outpatient (AMB) | payer OTHER, SELFPAY ==
[2023-02-18 08:56] VITALS: BP 104/66; PULSE 78; O2SAT 97; BMI 26.6
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
== END 2023-02-18 09:40 | disposition home or self-care (01) ==
PROVIDERS: PCP Internal Medicine; Visit Provider Internal Medicine
DX: R51.9 Headache, unspecified (principal); M54.2 Cervicalgia
CPT/HCPCS: 99213

== ENCOUNTER 2023-02-18 14:02 | Outpatient (AMB) | payer OTHER, SELFPAY ==
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
[2023-02-18 14:05] VITALS: BP 126/60; BMI 26.6
== END 2023-02-18 14:45 | disposition home or self-care (01) ==
LOC: HO.HWS 14:02
PROVIDERS: PCP Internal Medicine; Visit Provider Advanced Practice Midwife
DX: Z31.69 Encounter for other general counseling and advice on procreation (principal); Z30.09 Encounter for other general counseling and advice on contraception; G43.709 Chronic migraine without aura, not intractable, without status migrainosus; O09.519 Supervision of elderly primigravida, unspecified trimester; N91.2 Amenorrhea, unspecified
CPT/HCPCS: 99213

== ENCOUNTER → 2023-02-18 14:02 | Outpatient (BNVA) | payer OTHER, SELFPAY | PROVIDERS: PCP Internal Medicine; Visit Provider Advanced Practice Midwife | DX: N91.2 Amenorrhea, unspecified (principal); G43.709 Chronic migraine without aura, not intractable, without status migrainosus; Z32.02 Encounter for pregnancy test, result negative; Z31.69 Encounter for other general counseling and advice on procreation | CPT/HCPCS: 81025 ==

== ENCOUNTER 2023-03-01 10:57 | Outpatient (AMB) | payer OTHER, SELFPAY ==
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
[2023-03-01 11:03] VITALS: BP 110/60; PULSE 78; O2SAT 98
== END 2023-03-01 11:50 | disposition home or self-care (01) ==
PROVIDERS: PCP Internal Medicine; Visit Provider Nurse Practitioner Family
DX: M54.2 Cervicalgia (principal); R90.89 Other abnormal findings on diagnostic imaging of central nervous system; G43.709 Chronic migraine without aura, not intractable, without status migrainosus; R51.9 Headache, unspecified
CPT/HCPCS: 99214

== ENCOUNTER → 2023-03-01 10:57 | Outpatient (BNVA) | payer OTHER, SELFPAY | PROVIDERS: PCP Internal Medicine; Visit Provider Nurse Practitioner Family | DX: R90.89 Other abnormal findings on diagnostic imaging of central nervous system (principal); G43.709 Chronic migraine without aura, not intractable, without status migrainosus; R51.9 Headache, unspecified ==

== ENCOUNTER 2023-03-11 14:35 | Outpatient (AMB) | payer OTHER, SELFPAY ==
--- NOTE | 2023-03-11 14:39 | A.OFFVIS_ITS ---
Intake VS Expanded 03/11/23 14:41 Height 5 ft 3 in Weight 151 lb 14.376 oz BMI 26.9 Intake Visit Reasons: Hyperlipidemia Allergies No Known Allergies Allergy (Verified 03/01/23 10:59) HPI Nutrition Presentation Details Pt presents for MNT for hyperlipidemia. Pt was referred by PCP, Amilcar Schafer Pt reports typically choosing variety of foods, Breakfast B: yogurt or granola bar or bags iwth cranberry and raisins L: sand with cheese for lunch Sand or noodles or soup (tomato or broccoli cheddare) D: fried foods or frozen meals Snack on fruits/yogurt/ granola, cheese, chips ETOH/SMoking ---- Most Recent Diabetes Results: No Data to Display [facility] Medical History (Updated 02/18/23 @ 14:52 by Carlota Gonzalez CNM) Depression Anxiety Dysphagia Asthma Annual physical exam Glaucoma Headache Surgical History (Updated 02/18/23 @ 14:10 by Sandhya To CMA) Hx of wisdom tooth extraction Family History (Updated 03/01/23 @ 11:03 by Suzanna Gonzalez CMA) Father Colon cancer, Onset Age: 50 Mother Breast CA H/O thyroidectomy Social History (Updated 03/01/23 @ 11:03 by Suzanna Gonzalez CMA) 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, 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 Alcohol intake: current Alcohol intake frequency: holidays/special occasions only Patient Tobacco Use Status: Former Tobacco user Tobacco use type: Cigarette Years Smoked: 5 years e-Cigarette/Vaping Use: Former Use service: No Current occupational status: employed Cognitive needs: No Hearing needs: No Vision needs: Yes Female Reproductive History Menstrual Age of Menarche: 14 Assessment & Plan Assessment & Plan (1) Hyperlipidemia: Code(s): E78.5 - Hyperlipidemia, unspecified Plan: wt: 69 kg Est kcal needs as per MSJ: 1600 (40% carb, 30% protein/fat) Est fluid needs as per 25-30 ml/d: 1700 Est prot per day as per 1 g/kg bw: 69 Recommend fiber intake : 8-10 g per day and gradually increase to 25-28 g per day for women and 35-38 g for men or as tolerated Recommend sodium intake per day : less than 2000 mg Educated patient on: ( R = reviewed V = verbalizes understanding N/R = needs review N/A = not applicable * Food sources of carbohydrate, adequate serving sizes and its role in various health conditions: NR * Differences between complex carbohydrates a simple carbohydrates, role of fiber in diet: R * Differences between types of fats and role in diet (mono on saturated fat fatty acids, saturated fatty acids, trans fats): R * Food sources of sodium in salt and healthy modifications for heart health in kidney health: NR * Healthy plate method concept: R V * Physical activity: Benefits a precaution: R * Patient Instructions: Reduce on sat'd fats , see [id number] omar low saturated fat meal plan Coding Level of Care Code Nutr Indiv Intake (40048) Diagnoses Hyperlipidemia E78.5 Time Spent (min) 30
[2023-03-11 14:41] VITALS: BMI 26.9
== END 2023-03-11 15:29 | disposition home or self-care (01) ==
PROVIDERS: PCP Internal Medicine; Visit Provider Dietitian, Registered
DX: E78.5 Hyperlipidemia, unspecified (principal)

== ENCOUNTER → 2023-03-11 14:35 | Outpatient (BNVA) | payer OTHER, SELFPAY | PROVIDERS: PCP Internal Medicine; Visit Provider Dietitian, Registered | DX: E78.5 Hyperlipidemia, unspecified (principal); Z71.3 Dietary counseling and surveillance | CPT/HCPCS: 97802 ==

== ENCOUNTER 2023-04-09 18:10 | Outpatient (REF) | payer OTHER, SELFPAY ==
--- NOTE | ~2023-04-09 | MR_ITS ---
EXAMINATION: MR ANGIOGRAPHY BRAIN WITHOUT CONTRAST CLINICAL INFORMATION: Chronic migraines COMPARISON: MRI of the brain with and without contrast 09/17/2021 TECHNIQUE: Noncontrast afeo-fu-ibsbta MRA of the head was performed. FINDINGS: Normal flow-related signal within the anterior circulation without evidence of focal stenosis or occlusion of the intradural internal carotid, middle cerebral, or anterior cerebral arteries. There is some artifactual partial loss of intraluminal signal involving the proximal intracranial ICAs just distal to the skull base. Normal flow-related signal within the posterior circulation without evidence of focal stenosis or occlusion of the intradural vertebral, basilar, superior cerebellar, or posterior cerebral arteries. No demonstrated intradural aneurysms. IMPRESSION Normal MRA of the head
== END 2023-04-09 18:11 | disposition home or self-care (01) ==
LOC: HO.MRI 18:10
PROVIDERS: PCP Internal Medicine; Visit Provider Nurse Practitioner Family
DX: G43.709 Chronic migraine without aura, not intractable, without status migrainosus (principal); M54.2 Cervicalgia; R90.89 Other abnormal findings on diagnostic imaging of central nervous system
CPT/HCPCS: 70544

== ENCOUNTER 2023-05-20 16:35 | Outpatient (REF) | payer OTHER, SELFPAY ==
--- NOTE | ~2023-05-20 | MR_ITS ---
EXAMINATION: MR BRAIN WITHOUT AND WITH CONTRAST CLINICAL INFORMATION: Concern for microadenoma from prior MRI. COMPARISON: Brain MRI 09/17/2021. TECHNIQUE: Multiplanar, multisequence imaging of the brain was performed before and after the intravenous administration of 3 mL of Gadavist. FINDINGS: There is a 6 mm focus of ill-defined hypoenhancement in the left aspect of the pituitary gland seen on series 9 image 11/25. The pituitary gland is otherwise normal in size and morphology. The infundibulum is normal thickness and inserts in the midline. The normal posterior pituitary bright spot is present. There is no acute infarction, hemorrhage, mass, or extra-axial fluid collection. Mild nonspecific foci of T2/FLAIR hyperintensity are seen within the cerebral white matter. The ventricles are normal in size without hydrocephalus. No abnormal intracranial enhancement is seen. The arterial flow voids are preserved at the skull base. The orbits appear normal. MR/MR head/brain wo/w con IMPRESSION: A 6 mm focus of ill-defined hypoenhancement is seen in the left aspect of the pituitary gland which could represent a microadenoma or background heterogeneous enhancement of the pituitary parenchyma. No acute intracranial abnormality.
[2023-05-20] MEDS: gadobutroL 7.5 ML VIAL IVPUSH (17:25)
== END 2023-05-20 16:36 | disposition home or self-care (01) ==
LOC: HO.MRI 16:35
PROVIDERS: PCP Internal Medicine; Visit Provider Nurse Practitioner Family
DX: G43.709 Chronic migraine without aura, not intractable, without status migrainosus (principal); R90.89 Other abnormal findings on diagnostic imaging of central nervous system
CPT/HCPCS: 70553; A9585

== ENCOUNTER 2023-05-31 15:36 | Outpatient (AMB) | payer OTHER, SELFPAY ==
--- NOTE | 2023-05-31 15:36 | MHC.OFFVIS ---
Intake Vital Signs 05/31/23 15:37 Height 5 ft 3 in Weight 155 lb 4 oz BMI 27.5 BP 110/71 Blood Pressure Location Rt brachial Position Sitting Intake Visit Reasons: 3M F/U MIGRAINES-LVM Intake Note: Patient presents for 3 month follow up. Patient states pretty bad still, Im off the medication Allergies No Known Allergies Allergy (Verified 05/31/23 15:40) HPI HPI Comments History of Present Illness Details 37 y/o female patient presents for follow up of chronic migraine with tension headache. Pt reports that she needed to off from work at least 1-2 days/week due to headache. She had mild improvement in headache intensity with Qulipta 30 mg at the beginning but not anymore. She still she gets 4-5 migraine days/week with daily tension headache. Pt does not like to use rizatriptan, it caused her drowsy. Quilpta 60 mg ordered but insurance denied. She is on magnesium 400 mg QHS, vitamin B2 400 mg daily. Pt thinks that work related stress triggers her headache and plans to change her job. Pt sees the therapist to manage stress and anxiety. She tried Nurted, Emgality, amitriptyline and tipiramate 50 mg but failed to prevent headache. Pt also diagnosed with glaucoma. Pt also has asthma, not candidate for propranolol. Repeat brain MRI result reviewed. A 6 mm focus of ill-defined hypoenhancement is seen in the left aspect of the pituitary gland which could represent a microadenoma or background heterogeneous enhancement of the pituitary parenchyma. No acute intracranial abnormality. 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 Alcohol intake: current Alcohol intake frequency: holidays/special occasions only Patient Tobacco Use Status: Former Tobacco user Tobacco use type: Cigarette Years Smoked: 5 years e-Cigarette/Vaping Use: Former Use service: No Current occupational status: employed Cognitive needs: No Hearing needs: No Vision needs: Yes Female Reproductive History Menstrual Age of Menarche: 14 Review of Systems Const All systems reviewed & are unremarkable except as noted in HPI and below ENT Reports Normal hearing present Neuro Reports Normal hearing present Physical Exam Vital Signs: Last Vital Signs BP 110/71 05/31/23 15:37 BMI result Body Mass Index 27.5 Const General: cooperative, healthy appearing, comfortable, no acute distress and anxious Nutritional Appearance: average body habitus Orientation/consciousness: patient oriented x3 Eyes Pupils: Equal, round and reactive pupils present Neck Other: tight neck muscles Neck: Yes normal visual inspection Neuro General: patient oriented x3, gait normal, tone normal, moves all extremities, no focal motor deficits and CN's II-XI intact bilaterally Cranial nerves: Yes Facial sensation intact/muscles of mastication intact, Yes Equal, round and reactive pupils present, Yes Bilaterally intact EOM present, Yes Normal facial strength present, Yes Midline tongue present, Yes Symmetric palate elevation present, Yes Normal hearing present, Yes Ability to bilaterally rotate head present and Yes Ability to bilaterally elevate shoulders present Cognition (Neuro): normal cognition Motor exam (neuro): 5/5 motor strength present throughout and no tremor noted Psych Other: anxious Appearance: grossly normal Speech and movement: Normal speech and movement present Affect: normal affect Attitude: cooperative Assessment & Plan Assessment & Plan (1) Cervicalgia of zcigvpzh-xykgbbd-irarz region: Code(s): M54.2 - Cervicalgia (2) MRI of brain abnormal: Code(s): R90.89 - Other abnormal findings on diagnostic imaging of central nervous system (3) Chronic migraine without aura: Code(s): G43.709 - Chronic migraine without aura, not intractable, without status migrainosus (4) Chronic daily headache: Code(s): R51.9 - Headache, unspecified Plan Continue to take mganesium 400 mg qHS, vitamin B2 400 mg q daily for migraine prevention. May use zofran for nausea as needed. Rizatriptan makes her drowsy, and may use as needed after work. Advised patient to start prednisone for migraine treatment. Discussed about the prednisone side effects including GERD, and advised to take omeprazole 20 mg daily. Start cyclobenzaprine 5 mg qHS for neck muscle tightness. Labs ordered to assess pituitary adenoma. Medications: New prednisone see taper instructions 60 mgX2 days, 50mg X2 days, 40 mg X 2 days, 30 mg X2 days, 20 mg X2 days, 10mg X2 days. 12 days 42 tabs 0RF omeprazole 20 mg PO DAILY 30 days 30 caps 0RF cyclobenzaprine 5 mg PO BEDTIME 30 days 30 tabs 1RF Coding Level of Care Code Est Pt Level 4 (33390) Diagnoses Cervicalgia of uzmolzst-vwikmcs-wtxuk region M54.2 MRI of brain abnormal R90.89 Chronic migraine without aura G43.709 Chronic daily headache R51.9
[2023-05-31 15:37] VITALS: BP 110/71; BMI 27.5
== END 2023-05-31 16:23 | disposition home or self-care (01) ==
PROVIDERS: PCP Internal Medicine; Visit Provider Nurse Practitioner Family
DX: M54.2 Cervicalgia (principal); R90.89 Other abnormal findings on diagnostic imaging of central nervous system; G43.709 Chronic migraine without aura, not intractable, without status migrainosus
CPT/HCPCS: 99214

== ENCOUNTER → 2023-05-31 15:36 | Outpatient (BNVA) | payer OTHER, SELFPAY | PROVIDERS: PCP Internal Medicine; Visit Provider Nurse Practitioner Family | DX: R90.89 Other abnormal findings on diagnostic imaging of central nervous system (principal); G43.709 Chronic migraine without aura, not intractable, without status migrainosus; R51.9 Headache, unspecified; M54.2 Cervicalgia ==

== ENCOUNTER 2023-06-16 16:23 | Outpatient (REF) | payer OTHER, SELFPAY ==
[2023-06-16 18:25] LABS: TSH reflex Free T4 1.44 uIU/mL (0.32-4.0)
[2023-06-20 01:54] LABS: Follicle Stimulating Hormone 5.9 mIU/mL; Prolactin 11.9 ng/mL
[2023-06-23 13:38] LABS: Adrenocorticotropic Hormone 13 pg/mL (6-50)
== END 2023-06-16 16:24 | disposition home or self-care (01) ==
LOC: HO.LAB 16:23
PROVIDERS: PCP Internal Medicine; Visit Provider Nurse Practitioner Family
DX: D35.2 Benign neoplasm of pituitary gland (principal)
CPT/HCPCS: 36415; 82024; 83001; 84146; 84443

== ENCOUNTER 2023-07-27 13:06 | Outpatient (AMB) | payer BC, SELFPAY ==
--- NOTE | 2023-07-27 13:16 | MHC.PC.OV ---
Vital Signs 07/27/23 13:24 Height 5 ft 3 in Weight 153 lb BMI 27.1 BP 124/76 Blood Pressure Location Lt brachial Position Sitting Pulse 82 Pulse Source Pulse Oximeter Pulse Oximetry (%) 95 Oxygen Delivery Method Room Air Intake Visit Reasons: Annual PE Intake Note: Pt is here today for PE. Allergies No Known Allergies Allergy (Verified 07/27/23 13:25) Medication List - Last Reconciled 07/27/23 by Francia Schafer MD albuterol sulfate 90 mcg/actuation 2 inhalations inhalation Q4H PRN albuterol sulfate 2.5 mg inhalation Q4-6H cetirizine 10 mg PO DAILY PRN cyclobenzaprine 5 mg PO BEDTIME 30 days gabapentin 300 mg PO BEDTIME PRN latanoprost 0.005% 1 drp ophthalmic (eye) DAILY levonorgestrel-ethinyl estrad 0.1-20 mg-mcg 1 tab PO DAILY magnesium oxide 400 mg PO BEDTIME multivitamin 1 tab PO DAILY ondansetron 4 mg PO Q8H PRN 30 days riboflavin (vitamin B2) 400 mg PO QAM 30 days rizatriptan take 1 tab at onset of headache; if no relief may repeat 1 tab after at least 2 hrs; max = 3 tabs/24 hr PO 30 days Tobacco use date assessed: 07/27/23 Dental Screening Dental Screen Date: 07/27/23 Did you have a dental visit in the last 12 months?: No Did you have a dental problem in the last 6 months where you did not have access to dental care?: No Was dental information given to patient?: Patient declined HPI Annual PE HPI Details Pt presents for PE. She follows up with Neurology [facility] for chronic migraine headaches and tried multiple prevention and treatment medications without significant improvement. Patient is looking for 2nd opinion in [place]. 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 64549 - PHQ-9 Billing: Patient declined-do not bill Source: Developed by Drs. Teddy Camacho, Desi Alatorre, Abe Myers and colleagues, with an educational arlin from [employer]. Thrive Questionnaire Date Thrive assessed: 07/27/23 I am a: Patient What is your living situation today?: I choose not to answer this question Within the past 12 months, did the food you bought not last and you didn't have the money to get more?: I choose not to answer this question Within the past 12 months, did you worry whether your food would run out before you got money to buy more?: I choose not to answer this question Do you have trouble paying for medicines?: I choose not to answer this question Do you have trouble getting transportation to medical appointments?: I choose not to answer this question Do you have trouble paying your heating and electricity bill?: I choose not to answer this question Do you have trouble taking care of your child, family member or friend?: I choose not to answer this question Do you have trouble with day-to-day activities such as bathing, preparing meals, shopping, managing finances, etc.?: I choose not to answer this question Are you currently unemployed and looking for a job?: I choose not to answer this question Are you interested in more education?: I choose not to answer this question AUDIT C Alcohol Use Questionnaire (AUDIT-C) 1. How often do you have a drink containing alcohol?: Never 3. How often do you have six or more drinks on one occasion?: Never Total Score: 0 ROBER-7 AMB Questionnaire ROBER-7 Date ROBER - 7 assessed: 07/27/23 Source: Developed by Drs. Teddy Camacho, Desi Alatorre, Abe Myers and colleagues, with an educational arlin from [employer]. ROBER-7 Assessment Billing ROBER-7 Assessment Tool: pt declined-do not bill Review of Systems Const All systems reviewed & are unremarkable except as noted in HPI and below Reports no additional complaints Eyes Reports no additional complaints ENT Reports no additional complaints Card Reports no additional complaints Resp Reports no additional complaints GI Reports no additional complaints Reports no additional complaints Physical exam (Primary Care) Vital Signs: Last Vital Signs Pulse 82 07/27/23 13:24 BP 124/76 07/27/23 13:24 Pulse Ox 95 07/27/23 13:24 Oxygen Delivery Method Room Air 07/27/23 13:24 BMI result Body Mass Index 27.1 Tobacco/Smoking Status: Tobacco use Status Tobacco use date assessed 07/27/23 07/27/23 13:28 Patient Tobacco Use Status Former Tobacco user 07/27/23 13:16 Tobacco use type Cigarette 07/27/23 13:16 e-Cigarette/Vaping Use Former Use 07/27/23 13:16 Thrive Assessment: Date of Thrive Assessment Date Thrive assessed 07/27/23 07/27/23 13:31 Const General: no acute distress HENMT Head: Yes normal to inspection Ears: hearing grossly normal bilaterally General nose exam: Normal external nose present Face and sinus: Yes normal facial exam Mouth: Normal oral and palatal mucosa present Throat: Yes posterior oropharynx normal Eyes General: appearance normal, both eyes and all related structures Neck Neck: Yes no lymphadenopathy and Yes supple Resp Effort & Inspection: normal respiratory effort Auscultation: clear to auscultation bilaterally Cardio Rhythm: regular rhythm Heart sounds: S1 normal heart sound present and S2 normal heart sound present GI Inspection: Yes normal to inspection Palpation (GI): Soft to palpation Percussion: Yes normal to percussion Auscultation: normal bowel sounds Assessment and Plan Assessment & Plan (1) Hyperlipidemia: Code(s): E78.5 - Hyperlipidemia, unspecified Plan: Low-cholesterol diet discussed with the patient. she will return for fasting blood (2) Annual physical exam: Code(s): Z00.00 - Encounter for general adult medical examination without abnormal findings Plan: Well-balanced diet regular physical activity discussed with the patient. She is up-to-date with the Pap smear by safety leader (3) Chronic migraine without aura: Code(s): G43.709 - Chronic migraine without aura, not intractable, without status migrainosus Plan: Follow-up with neurology (4) Glaucoma: Code(s): H40.9 - Unspecified glaucoma Plan: Follow-up with ophthalmology Orders: Orders Complete Blood Count Auto Diff Today E78.5 - Hyperlipidemia, unspecified, Z00.00 - Encounter for general adult medical examination without abnormal findings Lipid Panel Today E78.5 - Hyperlipidemia, unspecified, Z00.00 - Encounter for general adult medical examination without abnormal findings Comprehensive [place]. Panel Fast Today E78.5 - Hyperlipidemia, unspecified, Z00.00 - Encounter for general adult medical examination without abnormal findings Medications: Changed From gabapentin 300 mg PO BEDTIME 30 days 30 caps 3RF To gabapentin 300 mg PO BEDTIME PRN Coding Level of Care Code Est Pt Prev Care 18-39y(63337) Diagnoses Hyperlipidemia E78.5 Annual physical exam Z00.00 Chronic migraine without aura G43.709 Glaucoma H40.9
[2023-07-27 13:24] VITALS: BP 124/76; PULSE 82; O2SAT 95; BMI 27.1
== END 2023-07-27 13:57 | disposition home or self-care (01) ==
PROVIDERS: PCP Internal Medicine; Visit Provider Internal Medicine
DX: E78.5 Hyperlipidemia, unspecified (principal); Z00.00 Encounter for general adult medical examination without abnormal findings; G43.709 Chronic migraine without aura, not intractable, without status migrainosus; H40.9 Unspecified glaucoma
CPT/HCPCS: 99395

== ENCOUNTER 2023-08-14 07:19 | Outpatient (REF) | payer BC, SELFPAY ==
[2023-08-14 11:35] LABS: MANUAL DIFF FLAG NO
[2023-08-14 11:40] LABS: Basophils Percent Auto 0.4 % (0-2); Eosinophils Absolute Auto 0.1 X10*3/uL (0.0-0.4); Eosinophils Percent Auto 1.8 % (0-4); Hematocrit 43.2 % (37.0-47.0); Hemoglobin 14.6 g/dl (12.0-16.0); Imm Gran Abs Auto 0.02 X10*3/uL (0.00-0.03); Imm Gran Pct Auto 0.3 % (0.0-0.4); Lymphocytes Absolute Auto 2.5 X10*3/uL (1.2-4.9); Lymphocytes Percent Auto 32.5 % (20-40); Mean Corpuscular HGB Conc 33.8 g/dl (31.0-35.0); Mean Corpuscular Hemoglobin 31.5 pg (27.0-33.0); Mean Corpuscular Volume 93.1 fL (80.0-98.0); Mean Platelet Volume 10.2 fL (9.4-12.3); Monocytes Absolute Auto 0.6 X10*3/uL (0.1-1.2); Monocytes Percent Auto 7.3 % (2-11); Neutrophils Absolute Auto 4.5 x10*3/uL (2.0-8.3); Neutrophils Percent Auto 57.7 % (45-73); Platelet Count 315 X10*3/uL (160-400); Red Blood Count 4.64 X10*6/uL (4.20-5.50); Red Cell Distribution Width 11.9 % (11.0-16.0); White Blood Count 7.8 X10*3/uL (4.8-10.8)
[2023-08-14 12:17] LABS: Alanine Aminotransferase 18 U/L (0-31); Albumin Level 4.3 g/dL (3.5-5.0); Alkaline Phosphatase 62 U/L (39-117); Anion Gap 14 (12-20); Aspartate Amino Transferase 22 U/L (5-31); Bilirubin Total 0.8 mg/dL (0.0-1.0); Blood Urea Nitrogen 12 mg/dL (9-16); Calcium 9.4 mg/dL (8.4-10.2); Carbon Dioxide 23 mmol/L (22-29); Chloride 108 mmol/L (96-108); Cholesterol 166 mg/dL (<200); Estimated Glomerular Filt Rate > 60; Glucose Fasting 83 mg/dL (60-99); HDL Cholesterol 50 mg/dL (>40); LDL Cholesterol Calculated 103 mg/dL (<100); Potassium 4.6 mmol/L (3.3-5.1); Sodium 140 mmol/L (135-145); Total Protein 7.7 g/dL (6.5-8.0); Triglycerides 65 mg/dL (<150)
== END 2023-08-14 07:20 | disposition home or self-care (01) ==
LOC: HO.HMGCLDS 07:19
PROVIDERS: PCP Internal Medicine; Visit Provider Internal Medicine
DX: Z00.00 Encounter for general adult medical examination without abnormal findings (principal); E78.5 Hyperlipidemia, unspecified
CPT/HCPCS: 36415; 80053; 80061; 85025

== ENCOUNTER 2023-08-17 14:31 | Outpatient (AMB) | payer BC, SELFPAY ==
--- NOTE | 2023-08-17 14:44 | MHC.OFFVIS ---
Intake Vital Signs 08/17/23 14:45 Height 5 ft 3 in Weight 153 lb BMI 27.1 Pulse 90 Pulse Source Pulse Oximeter Pulse Oximetry (%) 97 Oxygen Delivery Method Room Air Intake Visit Reasons: 2 mo f/u -Migraines/ LM to call and r/s Intake Note: I'm still having the migraines, everyday. Allergies No Known Allergies Allergy (Verified 08/17/23 14:44) Medication List - Last Reconciled 08/17/23 by HILARY Castro albuterol sulfate 90 mcg/actuation 2 inhalations inhalation Q4H PRN albuterol sulfate 2.5 mg inhalation Q4-6H cetirizine 10 mg PO DAILY PRN cyclobenzaprine 5 mg PO BEDTIME 30 days gabapentin 300 mg PO BEDTIME PRN latanoprost 0.005% 1 drp ophthalmic (eye) DAILY levonorgestrel-ethinyl estrad 0.1-20 mg-mcg 1 tab PO DAILY magnesium oxide 400 mg PO BEDTIME multivitamin 1 tab PO DAILY ondansetron 4 mg PO Q8H PRN 30 days riboflavin (vitamin B2) 400 mg PO QAM 30 days rizatriptan take 1 tab at onset of headache; if no relief may repeat 1 tab after at least 2 hrs; max = 3 tabs/24 hr PO 30 days HPI HPI Comments History of Present Illness Details 37-year-old female presents for f/u visit of intractable headache. Pt patient states that she is still struggling with constant headache. 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 This new area is brighter and louder. She had previously requested workplace accommodations, however these have not been implemented as of yet. Baseline headache characteristics: States the headache started 3 yrs ago when camping. Woke up with left eye redness. Saw eye doctor- dx'd with glaucoma- on eye drops. F/b [facility]. She denies any bothersome headaches prior to this. The headache starts in the inner corner of the left eye and wraps around the left side of head. Pain is severe sharp, stabbing, throbbing. A/w photophobia, phonophobia, nausea, mild dizziness, cognitive difficulties, activity intolerence, andressa watery eyes, left eye droops/closes, pins and needles on the top of the head. May have slight blurry vision spots. Triggered by rain/weather changes, standing up, worse at work. Headache is better when laying down and asleep. Constant headache. She takes only a small cup of coffee in the morning. She is concerned that MRI brain showed enlarging pituitary growth. She denies peripheral vision loss, diplopia, nipple discharge. 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 Alcohol intake: current Alcohol intake frequency: holidays/special occasions only Patient Tobacco Use Status: Former Tobacco user Tobacco use type: Cigarette Years Smoked: 5 years e-Cigarette/Vaping Use: Former Use service: No Current occupational status: employed Cognitive needs: No Hearing needs: No Vision needs: Yes Female Reproductive History Menstrual Age of Menarche: 14 Physical Exam Vital Signs: Last Vital Signs Pulse 90 08/17/23 14:45 Pulse Ox 97 08/17/23 14:45 Oxygen Delivery Method Room Air 08/17/23 14:45 BMI result Body Mass Index 27.1 Const General: cooperative and no acute distress Orientation/consciousness: patient oriented x3 Resp Effort & Inspection: normal respiratory effort and able to speak in complete sentences Neuro Other: Assyemtric eyebrows, palapebral fissure- drooped on left Right TMJ region, right parietal, occipital tendderness to palpation. Marked photophobia General: patient oriented x3 Cranial nerves: Yes CN's II-XII intact bilaterally Cognition (Neuro): normal cognition Psych Appearance: grossly normal Mental Status: mental status grossly normal Speech and movement: Normal speech and movement present Affect: Sad affect present Attitude: cooperative Thought process: Normal thought process present Thought content: Normal thought content present Insight: Good insight present (Psych) Judgement: Good judgement present (Psych) Assessment & Plan Assessment & Plan (1) Positional headache: Code(s): R51.0 - Headache with orthostatic component, not elsewhere classified (2) Watery eyes: Code(s): H04.203 - Unspecified epiphora, bilateral (3) Eye pain: Code(s): H57.10 - Ocular pain, unspecified eye (4) Increased severity of headaches: Code(s): R51.9 - Headache, unspecified (5) Increased frequency of headaches: Code(s): R51.9 - Headache, unspecified (6) Photophobia: Code(s): H53.149 - Visual discomfort, unspecified Plan Reviewed brain MRI images with patient: 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 However this is still just 6 mm, and is not exerting mass effect on any other intracranial structures. Recent pituitary lab orders were within normal limits. Patient is advised to try Fioricet, to assess responsiveness. We will check serum labs for less common etiologies of persistent intractable headache and left eye pain. Patient advised to undergo lumbar puncture in left lateral decubitus position to assess for opening pressure and CSF studies. Patient advise that following the LP, she will need several days to rest, plan to have plenty of fluids, and caffeine, and Fioricet tabs available. As patient is having a severe degree of intractable headache and left eye symptoms, I have advised patient to abstain from work through follow-up here in 8 weeks to allow us to more aggressively workup and treat her symptoms. Orders: Orders Rheumatoid Factor 08/17/23 E78.5 - Hyperlipidemia, unspecified, F32.A - Depression, unspecified, F41.9 - Anxiety disorder, unspecified, H04.203 - Unspecified epiphora, bilateral, H40.9 - Unspecified glaucoma, H57.10 - Ocular pain, unspecified eye, R13.10 - Dysphagia, unspecified, R51.9 - Headache, unspecified Vitamin B12 and Folate 08/17/23 E78.5 - Hyperlipidemia, unspecified, F32.A - Depression, unspecified, F41.9 - Anxiety disorder, unspecified, H04.203 - Unspecified epiphora, bilateral, H40.9 - Unspecified glaucoma, H57.10 - Ocular pain, unspecified eye, R13.10 - Dysphagia, unspecified, R51.9 - Headache, unspecified Erythrocyte Sedimentation Rate 08/17/23 E78.5 - Hyperlipidemia, unspecified, F32.A - Depression, unspecified, F41.9 - Anxiety disorder, unspecified, H04.203 - Unspecified epiphora, bilateral, H40.9 - Unspecified glaucoma, H57.10 - Ocular pain, unspecified eye, R13.10 - Dysphagia, unspecified, R51.9 - Headache, unspecified Tick-borne Disease Molecular 08/17/23 E78.5 - Hyperlipidemia, unspecified, F32.A - Depression, unspecified, F41.9 - Anxiety disorder, unspecified, H04.203 - Unspecified epiphora, bilateral, H40.9 - Unspecified glaucoma, H57.10 - Ocular pain, unspecified eye, R13.10 - Dysphagia, unspecified, R51.9 - Headache, unspecified Lyme IgG/IgM w/reflex to WB 08/17/23 E78.5 - Hyperlipidemia, unspecified, F32.A - Depression, unspecified, F41.9 - Anxiety disorder, unspecified, H04.203 - Unspecified epiphora, bilateral, H40.9 - Unspecified glaucoma, H57.10 - Ocular pain, unspecified eye, R13.10 - Dysphagia, unspecified, R51.9 - Headache, unspecified Vitamin B1 08/17/23 E78.5 - Hyperlipidemia, unspecified, F32.A - Depression, unspecified, F41.9 - Anxiety disorder, unspecified, H04.203 - Unspecified epiphora, bilateral, H40.9 - Unspecified glaucoma, H57.10 - Ocular pain, unspecified eye, R13.10 - Dysphagia, unspecified, R51.9 - Headache, unspecified Vitamin B5 (Pantothenic Acid) 08/17/23 E78.5 - Hyperlipidemia, unspecified, F32.A - Depression, unspecified, F41.9 - Anxiety disorder, unspecified, H04.203 - Unspecified epiphora, bilateral, H40.9 - Unspecified glaucoma, H57.10 - Ocular pain, unspecified eye, R13.10 - Dysphagia, unspecified, R51.9 - Headache, unspecified CSF Cell Ct w Diff X2 08/17/23 E78.5 - Hyperlipidemia, unspecified, F32.A - Depression, unspecified, F41.9 - Anxiety disorder, unspecified, H04.203 - Unspecified epiphora, bilateral, H40.9 - Unspecified glaucoma, H57.10 - Ocular pain, unspecified eye, R13.10 - Dysphagia, unspecified, R51.9 - Headache, unspecified CSF Culture + Gram stain 08/17/23 E78.5 - Hyperlipidemia, unspecified, F32.A - Depression, unspecified, F41.9 - Anxiety disorder, unspecified, H04.203 - Unspecified epiphora, bilateral, H40.9 - Unspecified glaucoma, H57.10 - Ocular pain, unspecified eye, R13.10 - Dysphagia, unspecified, R51.9 - Headache, unspecified CSF Glucose 08/17/23 E78.5 - Hyperlipidemia, unspecified, F32.A - Depression, unspecified, F41.9 - Anxiety disorder, unspecified, H04.203 - Unspecified epiphora, bilateral, H40.9 - Unspecified glaucoma, H57.10 - Ocular pain, unspecified eye, R13.10 - Dysphagia, unspecified, R51.9 - Headache, unspecified IgG Index CSF 08/17/23 E78.5 - Hyperlipidemia, unspecified, F32.A - Depression, unspecified, F41.9 - Anxiety disorder, unspecified, H04.203 - Unspecified epiphora, bilateral, H40.9 - Unspecified glaucoma, H57.10 - Ocular pain, unspecified eye, R13.10 - Dysphagia, unspecified, R51.9 - Headache, unspecified Lyme IgG & IgM for CSF 08/17/23 E78.5 - Hyperlipidemia, unspecified, F32.A - Depression, unspecified, F41.9 - Anxiety disorder, unspecified, H04.203 - Unspecified epiphora, bilateral, H40.9 - Unspecified glaucoma, H57.10 - Ocular pain, unspecified eye, R13.10 - Dysphagia, unspecified, R51.9 - Headache, unspecified Protein Electrophoresis, CSF 08/17/23 E78.5 - Hyperlipidemia, unspecified, F32.A - Depression, unspecified, F41.9 - Anxiety disorder, unspecified, H04.203 - Unspecified epiphora, bilateral, H40.9 - Unspecified glaucoma, H57.10 - Ocular pain, unspecified eye, R13.10 - Dysphagia, unspecified, R51.9 - Headache, unspecified Creatine Kinase Total 08/17/23 E78.5 - Hyperlipidemia, unspecified, F32.A - Depression, unspecified, F41.9 - Anxiety disorder, unspecified, H04.203 - Unspecified epiphora, bilateral, H40.9 - Unspecified glaucoma, H57.10 - Ocular pain, unspecified eye, R13.10 - Dysphagia, unspecified, R51.9 - Headache, unspecified Acetylcholine Receptor Binding 08/17/23 E78.5 - Hyperlipidemia, unspecified, F32.A - Depression, unspecified, F41.9 - Anxiety disorder, unspecified, H04.203 - Unspecified epiphora, bilateral, H40.9 - Unspecified glaucoma, H57.10 - Ocular pain, unspecified eye, R13.10 - Dysphagia, unspecified, R51.9 - Headache, unspecified Acetylcholine Shade Cutter Modulating 08/17/23 E78.5 - Hyperlipidemia, unspecified, F32.A - Depression, unspecified, F41.9 - Anxiety disorder, unspecified, H04.203 - Unspecified epiphora, bilateral, H40.9 - Unspecified glaucoma, H57.10 - Ocular pain, unspecified eye, R13.10 - Dysphagia, unspecified, R51.9 - Headache, unspecified LUIS Reflex Titer and Pattern 08/17/23 E78.5 - Hyperlipidemia, unspecified, F32.A - Depression, unspecified, F41.9 - Anxiety disorder, unspecified, H04.203 - Unspecified epiphora, bilateral, H40.9 - Unspecified glaucoma, H57.10 - Ocular pain, unspecified eye, R13.10 - Dysphagia, unspecified, R51.9 - Headache, unspecified CRP High Sensitivity 08/17/23 E78.5 - Hyperlipidemia, unspecified, F32.A - Depression, unspecified, F41.9 - Anxiety disorder, unspecified, H04.203 - Unspecified epiphora, bilateral, H40.9 - Unspecified glaucoma, H57.10 - Ocular pain, unspecified eye, R13.10 - Dysphagia, unspecified, R51.9 - Headache, unspecified Vitamin B2 (Riboflavin) 02/06/24 E78.5 - Hyperlipidemia, unspecified, F32.A - Depression, unspecified, F41.9 - Anxiety disorder, unspecified, H04.203 - Unspecified epiphora, bilateral, H40.9 - Unspecified glaucoma, H57.10 - Ocular pain, unspecified eye, R13.10 - Dysphagia, unspecified, R51.9 - Headache, unspecified Vitamin B3 (Niacin) 08/17/23 E78.5 - Hyperlipidemia, unspecified, F32.A - Depression, unspecified, F41.9 - Anxiety disorder, unspecified, H04.203 - Unspecified epiphora, bilateral, H40.9 - Unspecified glaucoma, H57.10 - Ocular pain, unspecified eye, R13.10 - Dysphagia, unspecified, R51.9 - Headache, unspecified Vitamin B6 08/17/23 E78.5 - Hyperlipidemia, unspecified, F32.A - Depression, unspecified, F41.9 - Anxiety disorder, unspecified, H04.203 - Unspecified epiphora, bilateral, H40.9 - Unspecified glaucoma, H57.10 - Ocular pain, unspecified eye, R13.10 - Dysphagia, unspecified, R51.9 - Headache, unspecified CSF Total Protein 08/17/23 E78.5 - Hyperlipidemia, unspecified, F32.A - Depression, unspecified, F41.9 - Anxiety disorder, unspecified, H04.203 - Unspecified epiphora, bilateral, H40.9 - Unspecified glaucoma, H57.10 - Ocular pain, unspecified eye, R13.10 - Dysphagia, unspecified, R51.9 - Headache, unspecified Immunofixation, CSF 08/17/23 E78.5 - Hyperlipidemia, unspecified, F32.A - Depression, unspecified, F41.9 - Anxiety disorder, unspecified, H04.203 - Unspecified epiphora, bilateral, H40.9 - Unspecified glaucoma, H57.10 - Ocular pain, unspecified eye, R13.10 - Dysphagia, unspecified, R51.9 - Headache, unspecified Lyme by PCR for CSF 08/17/23 E78.5 - Hyperlipidemia, unspecified, F32.A - Depression, unspecified, F41.9 - Anxiety disorder, unspecified, H04.203 - Unspecified epiphora, bilateral, H40.9 - Unspecified glaucoma, H57.10 - Ocular pain, unspecified eye, R13.10 - Dysphagia, unspecified, R51.9 - Headache, unspecified Meningitis/Enceph Panel CSF 08/17/23 E78.5 - Hyperlipidemia, unspecified, F32.A - Depression, unspecified, F41.9 - Anxiety disorder, unspecified, H04.203 - Unspecified epiphora, bilateral, H40.9 - Unspecified glaucoma, H57.10 - Ocular pain, unspecified eye, R13.10 - Dysphagia, unspecified, R51.9 - Headache, unspecified VDRL Qualitative CSF 08/17/23 E78.5 - Hyperlipidemia, unspecified, F32.A - Depression, unspecified, F41.9 - Anxiety disorder, unspecified, H04.203 - Unspecified epiphora, bilateral, H40.9 - Unspecified glaucoma, H57.10 - Ocular pain, unspecified eye, R13.10 - Dysphagia, unspecified, R51.9 - Headache, unspecified FL guided lumbar puncture LP 08/17/23 H04.203 - Unspecified epiphora, bilateral, H40.9 - Unspecified glaucoma, H57.10 - Ocular pain, unspecified eye, R51.0 - Headache with orthostatic component, not elsewhere classified, R51.9 - Headache, unspecified Other Ref Test - [facility] 08/17/23 F32.A - Depression, unspecified, F41.9 - Anxiety disorder, unspecified, H04.203 - Unspecified epiphora, bilateral, H40.9 - Unspecified glaucoma, H57.10 - Ocular pain, unspecified eye, R13.10 - Dysphagia, unspecified, R51.9 - Headache, unspecified MuSK Antibody 08/17/23 E78.5 - Hyperlipidemia, unspecified, F32.A - Depression, unspecified, F41.9 - Anxiety disorder, unspecified, H04.203 - Unspecified epiphora, bilateral, H40.9 - Unspecified glaucoma, H57.10 - Ocular pain, unspecified eye, R13.10 - Dysphagia, unspecified, R51.9 - Headache, unspecified Acetylcholine Recept. Blocking 08/17/23 E78.5 - Hyperlipidemia, unspecified, F32.A - Depression, unspecified, F41.9 - Anxiety disorder, unspecified, H04.203 - Unspecified epiphora, bilateral, H40.9 - Unspecified glaucoma, H57.10 - Ocular pain, unspecified eye, R13.10 - Dysphagia, unspecified, R51.9 - Headache, unspecified Oligoclonal Banding 08/17/23 E78.5 - Hyperlipidemia, unspecified, F32.A - Depression, unspecified, F41.9 - Anxiety disorder, unspecified, H04.203 - Unspecified epiphora, bilateral, H40.9 - Unspecified glaucoma, H54.62 - Unqualified visual loss, left eye, normal vision right eye, H57.10 - Ocular pain, unspecified eye, R13.10 - Dysphagia, unspecified, R51.9 - Headache, unspecified Medications: New urzkejusme-khgotcolfjsxi-oqod 50-325-40 mg max 2 tabs per day or 6 tabs per week 1 tab PO Q4H 7 days PRN 20 tabs 2RF headache Coding Level of Care Code Est Pt Level 4 (32414) Diagnoses Positional headache R51.0 Watery eyes H04.203 Eye pain H57.10 Increased severity of headaches R51.9 Increased frequency of headaches R51.9 Photophobia H53.149
[2023-08-17 14:45] VITALS: PULSE 90; O2SAT 97; BMI 27.1
== END 2023-08-17 15:51 | disposition home or self-care (01) ==
PROVIDERS: Absent Provider Nurse Practitioner Family; PCP Internal Medicine; Visit Provider Nurse Practitioner Family
DX: R51.0 Headache with orthostatic component, not elsewhere classified (principal); H04.203 Unspecified epiphora, bilateral; H57.10 Ocular pain, unspecified eye; R51.9 Headache, unspecified; H53.149 Visual discomfort, unspecified
CPT/HCPCS: 99214

== ENCOUNTER → 2023-08-17 14:31 | Outpatient (BNVA) | payer BC, SELFPAY | PROVIDERS: Absent Provider Nurse Practitioner Family; PCP Internal Medicine; Visit Provider Nurse Practitioner Family ==

== ENCOUNTER 2023-09-11 07:14 | Outpatient (REF) | payer BC, SELFPAY ==
[2023-09-11 09:08] LABS: Rheumatoid Factor < 13.0 IU/mL (<15.0)
[2023-09-11 09:26] LABS: Erythrocyte Sedimentation Rate 7 MM/HR (0-20)
[2023-09-11 09:35] LABS: Folate 14.3 ng/mL (> or = 4.0); Vitamin B12 857 pg/mL (200-900)
[2023-09-13 13:58] LABS: CRP High Sensitivity 1.2 mg/L
[2023-09-13 19:33] LABS: Lyme Abs Screen <0.90 index
[2023-09-14 10:44] LABS: A. Phagocytphilium DNA,RT-PCR NOT DETECTED (NOT DETECTED); Babesia Microti DNA, RT-PCR NOT DETECTED (NOT DETECTED); Borrelia Miyamotoi,DNA RT-PCR NOT DETECTED (NOT DETECTED); E.Chaffeensis DNA RT-PCR NOT DETECTED (NOT DETECTED); Lyme(Borrelia ssp)DNA RT-PCR NOT DETECTED (NOT DETECTED)
[2023-09-15 14:34] LABS: Vitamin B6 20.5 ng/mL (2.1-21.7)
[2023-09-16 14:43] LABS: Vitamin B1 9 nmol/L (8-30)
[2023-09-17 11:29] LABS: Anti Nuclear Antibody Screen POSITIVE (NEGATIVE)
[2023-09-21 00:44] LABS: Vitamin B5 (Pantothenic Acid) 93 ng/mL (<275)
[2023-09-23 17:39] LABS: Acetylcholine Recept. Blocking <15 (<15)
[2023-09-25 16:23] LABS: Acetylcholine Receptor Binding <0.30 nmol/L
[2023-09-27 13:18] LABS: Acetylcholine Recep Modulating <1
== END 2023-09-11 07:15 | disposition home or self-care (01) ==
LOC: HO.HMGCLDS 07:14
PROVIDERS: PCP Internal Medicine; Visit Provider Nurse Practitioner Family
DX: R51.9 Headache, unspecified (principal); H40.9 Unspecified glaucoma; R13.10 Dysphagia, unspecified; F41.9 Anxiety disorder, unspecified; F32.A Depression, unspecified; H57.10 Ocular pain, unspecified eye; H04.203 Unspecified epiphora, bilateral; E78.5 Hyperlipidemia, unspecified
CPT/HCPCS: 36415; 82550; 82607; 82746; 84207; 84252; 84425; 84591; 85652; 86038; 86039; 86041; 86042; 86043; 86141; 86366; 86431; 86617; 86618; 87468; 87469; 87478; 87484; 87798

== ENCOUNTER 2023-09-21 07:36 | Outpatient (AMB) | payer BC, SELFPAY ==
--- NOTE | 2023-09-21 07:40 | MHC.OFFVIS ---
Intake Vital Signs 09/21/23 07:42 Height 5 ft 3 in Weight 151 lb BMI 26.7 Pulse 71 Pulse Source Pulse Oximeter Pulse Oximetry (%) 97 Oxygen Delivery Method Room Air Intake Visit Reasons: 4-6wk follow up-Conf Intake Note: Patient presents for 6 week follow up. headaches are still very bad, I feel very nauseous. Allergies No Known Allergies Allergy (Verified 09/21/23 07:43) Medication List - Last Reconciled 09/21/23 by HILARY Castro albuterol sulfate 90 mcg/actuation 2 inhalations inhalation Q4H PRN albuterol sulfate 2.5 mg inhalation Q4-6H obzqzqunvh-hmsuvtggjonoa-vjrn 50-325-40 mg 1 tab PO Q4H PRN 7 days cetirizine 10 mg PO DAILY PRN cyclobenzaprine 5 mg PO BEDTIME 30 days gabapentin 300 mg PO BEDTIME 30 days latanoprost 0.005% 1 drp ophthalmic (eye) DAILY levonorgestrel-ethinyl estrad 0.1-20 mg-mcg 1 tab PO DAILY magnesium oxide 400 mg PO BEDTIME multivitamin 1 tab PO DAILY ondansetron 4 mg PO Q8H PRN 30 days riboflavin (vitamin B2) 400 mg PO QAM 30 days rizatriptan take 1 tab at onset of headache; if no relief may repeat 1 tab after at least 2 hrs; max = 3 tabs/24 hr PO 30 days HPI HPI Comments History of Present Illness Details 37-yr-old female presents for f/u visit. Pt denies any significant interval medical changes. Pt reports despite being out of work- she has had no decrease in her headache burden. She continues to have a constant headache. She is still very light sensitive. The headaches are still worse with rain and weather changes. She is trying to sleep and rest- as sleep is the only time she does not have a headache. LP is scheduled for 09/27/22. 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, 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 Alcohol intake: current Alcohol intake frequency: holidays/special occasions only Patient Tobacco Use Status: Former Tobacco user Tobacco use type: Cigarette Years Smoked: 5 years e-Cigarette/Vaping Use: Former Use service: No Current occupational status: employed Cognitive needs: No Hearing needs: No Vision needs: Yes Female Reproductive History Menstrual Age of Menarche: 14 Physical Exam Vital Signs: Last Vital Signs Pulse 71 09/21/23 07:42 Pulse Ox 97 09/21/23 07:42 Oxygen Delivery Method Room Air 09/21/23 07:42 BMI result Body Mass Index 26.7 Const General: cooperative and no acute distress Orientation/consciousness: patient oriented x3 Resp Effort & Inspection: normal respiratory effort and able to speak in complete sentences Neuro Other: Photophobic General: patient oriented x3 Cranial nerves: Yes CN's II-XII intact bilaterally Cognition (Neuro): normal cognition Psych Appearance: grossly normal Mental Status: mental status grossly normal Speech and movement: Normal speech and movement present Affect: normal affect Attitude: cooperative Assessment & Plan Assessment & Plan (1) Positional headache: Code(s): R51.0 - Headache with orthostatic component, not elsewhere classified (2) Photophobia: Code(s): H53.149 - Visual discomfort, unspecified (3) Watery eyes: Code(s): H04.203 - Unspecified epiphora, bilateral (4) Eye pain: Code(s): H57.10 - Ocular pain, unspecified eye (5) Increased severity of headaches: Code(s): R51.9 - Headache, unspecified (6) Positive LUIS (antinuclear antibody): Code(s): R76.8 - Other specified abnormal immunological findings in serum Plan Patient is advised to try Fioricet, to assess responsiveness. Reviewed labs- notable for positive LUIS 1:320. Will request furtehr evaluation w/ rheumatology. Lumbar puncture in left lateral decubitus position to assess for opening pressure and CSF studies- as scheduled on 09/28/23. Again reviewed post-LP care, rest, plan to have plenty of fluids, caffeine, and Fioricet tabs available. Upon review of results, will optimize headache prevention/acute strategy and consider further work-up. Previous brain MRI images: 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 However this is still just 6 mm, and is not exerting mass effect on any other intracranial structures. Recent pituitary lab orders were within normal limits. As patient is having a severe degree of intractable headache and left eye symptoms, I have advised patient to continue to abstain from work through 10/12/23 to allow us to more aggressively workup and treat her symptoms. Orders: Referrals Rheumatology Referral R76.8 - Other specified abnormal immunological findings in serum Coding Level of Care Code Est Pt Level 4 (26432) Diagnoses Positional headache R51.0 Photophobia H53.149 Watery eyes H04.203 Eye pain H57.10 Increased severity of headaches R51.9 Positive LUIS (antinuclear antibody) R76.8
[2023-09-21 07:42] VITALS: PULSE 71; O2SAT 97; BMI 26.7
== END 2023-09-21 08:33 | disposition home or self-care (01) ==
PROVIDERS: PCP Internal Medicine; Visit Provider Nurse Practitioner Family
DX: R51.0 Headache with orthostatic component, not elsewhere classified (principal); H53.149 Visual discomfort, unspecified; H04.203 Unspecified epiphora, bilateral; H57.10 Ocular pain, unspecified eye; R51.9 Headache, unspecified; R76.8 Other specified abnormal immunological findings in serum
CPT/HCPCS: 99214

== ENCOUNTER → 2023-09-21 07:36 | Outpatient (BNVA) | payer BC, SELFPAY | PROVIDERS: PCP Internal Medicine; Visit Provider Nurse Practitioner Family ==

== ENCOUNTER 2023-09-28 09:25 | Day surgery (SDC) | payer BC, SELFPAY ==
--- NOTE | ~2023-09-28 | FL_ITS ---
FLUOROSCOPIC LUMBAR PUNCTURE INDICATION: Chronic headache Risks and benefits and possible complications were discussed with the patient and the consent form was signed. Patient was placed prone on the fluoroscopy table. The back was prepped and draped in routine sterile fashion. Betadine was used as a skin antiseptic. Utilizing fluoroscopic guidance, the L3-4 interlaminar space was accessed with a 22 gauge Bharat spinal needle and clear CSF fluid obtained. Opening pressure was 8 cm H20. 10 cc of fluid was sent for analysis. The needle was removed without immediate complications. Total fluoroscopy time: 0.7 min FL/FL guided lumbar puncture LP IMPRESSION: Successful fluoroscopic lumbar puncture This procedure was performed by Leroy Magdaleno PA-C and supervised by Dr. Roberts.
[2023-09-28 09:34] VITALS: BP 133/79; PULSE 102; RESP 20; TEMP 36.6; O2SAT 98; BMI 27.2
[2023-09-28 09:56] LABS: UPreg QC Valid YES; Urine Pregnancy NEGATIVE (NEGATIVE)
[2023-09-28 12:10] VITALS: BP 114/65; PULSE 91; RESP 16; TEMP 36.9; O2SAT 95
[2023-09-28 12:25] VITALS: BP 108/73; PULSE 88; RESP 16; O2SAT 99
[2023-09-28 13:04] LABS: Glucose CSF 60 mg/dL; Total Protein CSF 23.7 mg/dL (15-45)
[2023-09-28 13:05] LABS: CSF Appearance Clear, Colorless; CSF Tube # 1
[2023-09-28 13:09] VITALS: BP 123/76; PULSE 87; RESP 16; TEMP 37.4; O2SAT 98
[2023-09-28 13:23] LABS: Appearance CSF CLEAR; CSF Tube # 4
[2023-09-28 13:24] LABS: Color CSF COLORLESS; Lymphocytes CSF 100 %; Red Blood Cell CSF 0 MM*3; White Blood Cell CSF 1 MM*3
[2023-09-28 13:27] LABS: Appearance CSF CLEAR; Color CSF COLORLESS
[2023-09-28 13:28] LABS: CSF Monos 22 %; CSF Tube # 1; Lymphocytes CSF 78 %; Red Blood Cell CSF 3 MM*3; White Blood Cell CSF 5 MM*3
[2023-09-28 14:26] LABS: Cryptococcus neoformans/gattii Not Detected (Not Detect.); Enterovirus Not Detected (Not Detect.); Escherichia coli K1 Not Detected (Not Detect.); Haemophilus influenzae Not Detected (Not Detect.); Herpes simplex virus 1 Not Detected (Not Detect.); Herpes simplex virus 2 Not Detected (Not Detect.); Human herpesvirus 6 Not Detected (Not Detect.); Human parechovirus Not Detected (Not Detect.); Listeria monocytogenes Not Detected (Not Detect.); Neisseria meningitidis Not Detected (Not Detect.); Streptococcus agalactiae Not Detected (Not Detect.); Streptococcus pneumoniae Not Detected (Not Detect.); Varicella zoster virus Not Detected (Not Detect.)
[2023-09-28 15:23] LABS: Oligoclonal Serum Yes
[2023-09-30 23:18] LABS: Lyme (B. burgdorferi) PCR NOT DETECTED (NOT DETECTED)
[2023-10-02 13:08] LABS: Albumin 4.4 g/dL (3.6-5.1); IgG 1240 mg/dL (600-1640); IgG Synthesis Rate -4.8 mg/24 h (-9.9-3.3); IgG, CSF 1.9 mg/dL (0.8-7.7)
[2023-10-02 16:28] LABS: VDRL Qualitative CSF Nonreactive (Nonreactive)
[2023-10-02 17:53] LABS: Oligoclonal Banding Absent (Absent)
[2023-10-02 20:08] LABS: Lyme IgG CSF Immunoblot NO BANDS DETECTED; Lyme IgM CSF Immunoblot NO BANDS DETECTED
[2023-10-15 14:48] LABS: Prealbumin, CSF 5.9; Total Protein, CSF 25
[2023-10-15 14:49] LABS: Albumin, CSF 59.2; Alpha-1-Globulin,CSF 5.1
[2023-10-15 14:50] LABS: Alpha-2-Globulin,CSF 6.5; Beta Globulin, CSF 13.9; Gamma Globulin 9.4
== END 2023-09-28 13:12 | disposition home or self-care (01) ==
PROVIDERS: Physician Assistant Surgical; PCP Internal Medicine; Visit Provider Nurse Practitioner Family
PROC: 009U3ZZ Drainage of Spinal Canal, Percutaneous Approach (ICD-10-PCS; CPT 62270; principal; 2023-09-28 11:00)
DX: R51.0 Headache with orthostatic component, not elsewhere classified (principal); H40.9 Unspecified glaucoma; H04.203 Unspecified epiphora, bilateral; H53.149 Visual discomfort, unspecified; H57.10 Ocular pain, unspecified eye; R51.9 Headache, unspecified; R11.0 Nausea; R76.8 Other specified abnormal immunological findings in serum; J45.909 Unspecified asthma, uncomplicated; F32.A Depression, unspecified; F41.9 Anxiety disorder, unspecified; Z79.899 Other long term (current) drug therapy; Z87.891 Personal history of nicotine dependence
CPT/HCPCS: 36415; 62328; 81025; 82042; 82945; 83916; 84157; 84166; 86335; 86592; 86617; 87015; 87070; 87205; 87476; 87483; 89051

== ENCOUNTER → 2023-09-28 10:20 | Outpatient (BNV) | payer BC, SELFPAY | PROVIDERS: PCP Internal Medicine; Visit Provider Physician Assistant Surgical | DX: R51.0 Headache with orthostatic component, not elsewhere classified (principal) | CPT/HCPCS: 62328 ==

== ENCOUNTER 2023-10-06 15:54 | Outpatient (AMB) | payer BC, SELFPAY ==
--- NOTE | 2023-10-06 15:54 | MHC.OFFVIS ---
Intake Intake Visit Reasons: follow up(ok fani Muhammad)-Conf Intake Note: patient presents for follow up. Allergies No Known Allergies Allergy (Verified 10/07/23 06:30) HPI HPI Comments History of Present Illness Details 37-yr-old female presents for f/u televideo visit via [facility]. Pt denies any significant interval medical changes. Pt notes that since being home from work, the headache burden did not subside. Continued to have significant photophobia, and constant headache when sitting/standing. She underwent interval and lab work-up: LP which showed OP 8 cmH2O w/ unremarkable CSF studies (see below) Following the LP, she did have increased orthostatic headache. The headache upon sitting and standing makes her feel like her head will explode a/w photophobia and nausea. Laying down alleviates the headache. She has found the Fioricet, given for post-LP headache, to be helpful, as it does help the headache. however it causes sleepiness. Baseline headache characteristics: Severe sharp, stabbing, throbbing starts in the inner corner of the left eye and wraps around the left side of head. A/w photophobia, phonophobia, nausea, mild dizziness, cognitive difficulties, activity intolerence, andressa watery eyes, left eye droops/closes, pins and needles on the top of the head. May have slight blurry vision spots. Triggers: rain/weather changes, standing up, worse at work. Alleviating factors: when laying down and asleep. 08/14/23 09/11/23 09/28/23 07:55 08:17 11:30 WBC 7.8 RBC 4.64 Hgb 14.6 Hct 43.2 MCV 93.1 MCH 31.5 MCHC 33.8 RDW 11.9 Plt Count 315 MPV 10.2 ESR 7 Sodium 140 Potassium 4.6 Chloride 108 Total Creatine Kin ase 114 C-React Prot High Sens 1.2 Albumin (Send Out) 4.4 Vitamin B1 9 Pantothenic Acid 93 Vitamin B6 20.5 Vitamin B12 857 Folate 14.3 CSF Tube Number 4 CSF Volume 2.0 CSF Appearance CLEAR CSF Color COLORLESS CSF WBC 1 CSF RBC 0 CSF Lymphocytes 100 CSF Monocytes % 22 CSF Appearance (b) Clear, Colorless CSF Glucose 60 CSF Total Protein PEP 25 CSF Total Protein 23.7 CSF Prealbumin 5.9 CSF Albumin 59.2 CSF Kfplb-1-Owdyxe in 5.1 CSF Tkrdo-7-Vcypjd in 6.5 CSF Beta Globulin 13.9 CSF Gamma Globulin 9.4 CSF IgG Index 0.45 CSF IgG Synthesis Rate -4.8 CSF Oligoclonal Ba nds Absent CSF/Serum IgG Inde x 1.9 CSF VDRL Nonreactive CSF Lyme IgG (Immb lot) NO BANDS DETECTED CSF Lyme IgM (Immb lot) NO BANDS DETECTED CSF C.neoform/gat PCR Not Detected CSF CMV DNA (PCR) Not Detected CSF Enterovirus (P CR) Not Detected CSF E. coli K1 (PC R) Not Detected CSF H. influenzae (PCR) Not Detected CSF HSV I (PCR) Not Detected CSF HSV II (PCR) Not Detected CSF HHV 6 (PCR) Not Detected CSF L.monocytogene s PCR Not Detected CSF N. meningitidi s PCR Not Detected CSF Parechovirus ( PCR) Not Detected CSF S. agalactiae (PCR) Not Detected CSF S. pneumoniae (PCR) Not Detected CSF VZV (PCR) Not Detected IgG Index 1240 Rheumatoid Factor < 13.0 LUIS Screen POSITIVE A LUIS Titer 1:320 H LUIS Pattern A Anti-MuSK Ab Inter p Acetylchol Rcpt Bl ock Ab <15 Acetylchol Rcpt Bi nd Ab <0.30 Acetylchol Rcpt Mo du Ab <1 A.phagocytophil DN A PCR NOT DETECTED Babesia microti DN A PCR NOT DETECTED Borrelia sp DNA (P CR) NOT DETECTED Lyme Screen IgG & IgM <0.90 Lyme Disease DNA ( PCR) NOT DETECTED Borrelia miyamotoi (PCR) NOT DETECTED E.chaffeensis DNA (PCR) NOT DETECTED Tick-borne Disease PCR SEE NOTE PFSH Medical History Depression Anxiety Dysphagia Asthma Annual physical exam Glaucoma Headache Surgical History Hx of wisdom tooth extraction Family History Father Colon cancer, Onset Age: 50 Mother Breast CA H/O thyroidectomy Social History 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, 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 Alcohol intake: current Alcohol intake frequency: holidays/special occasions only Patient Tobacco Use Status: Former Tobacco user Tobacco use type: Cigarette Years Smoked: 5 years e-Cigarette/Vaping Use: Former Use service: No Current occupational status: employed Cognitive needs: No Hearing needs: No Vision needs: Yes Female Reproductive History Menstrual Age of Menarche: 14 Physical Exam Const General: cooperative and no acute distress Orientation/consciousness: patient oriented x3 Resp Effort & Inspection: normal respiratory effort and able to speak in complete sentences Neuro Other: Photophobic Left eye decreased palpebral fissure General: patient oriented x3 Cognition (Neuro): normal cognition Psych Appearance: grossly normal Mental Status: mental status grossly normal Speech and movement: Normal speech and movement present Affect: normal affect Attitude: cooperative Assessment & Plan Assessment & Plan (1) Positional headache: Code(s): R51.0 - Headache with orthostatic component, not elsewhere classified (2) Photophobia: Code(s): H53.149 - Visual discomfort, unspecified (3) Positive LUIS (antinuclear antibody): Code(s): R76.8 - Other specified abnormal immunological findings in serum Plan Note: 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 For positive LUIS: Rheumatology consult as ordered. Reviewed Lumbar puncture report and CSF studies- notable for low normal OP 8 cmH2O. Pt has significant postural headcahe c/w intracranial hypotension headcahe, which is exacerbated from her baseline s/p LP. Pt advised to increase fluids and caffeine, if ineffective, return to [facility] ER for epidural blood patch. Once pt has secured new health insurance, will consider ordering [place] [facility] imaging and initiate referral to [place] for further evaluation of s/s c/w chronic spontaneous intracranial hypotension headache. Previous brain MRI images: 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 However this is still just 6 mm, and is not exerting mass effect on any other intracranial structures. Recent pituitary lab orders were within normal limits. As patient is having a severe degree of intractable headache and left eye symptoms, I have advised patient to continue to abstain from work through her f/u appt. here in 2-3 months to allow us to more aggressively workup and treat her symptoms. Telehealth Telehealth Location of provider rendering services: practice address Location of patient: address on file Patient Identification confirmed using: Name, : Yes Telehealth method: video Patient verbally consented to treatment: Yes Patient verbally consented to billing insurance company: Yes Patient informed of any privacy concerns related to visit: Yes Minutes spent on Phone/Video with Pt.: 40 Coding Level of Care Code Tele Est Pt Level 4 (07585) Diagnoses Positional headache R51.0 Photophobia H53.149 Positive LUIS (antinuclear antibody) R76.8
== END 2023-10-11 15:30 | disposition home or self-care (01) ==
LOC: HO.HSMS 15:54
PROVIDERS: PCP Internal Medicine; Visit Provider Nurse Practitioner Family
DX: R51.0 Headache with orthostatic component, not elsewhere classified (principal); H53.149 Visual discomfort, unspecified; R76.8 Other specified abnormal immunological findings in serum
CPT/HCPCS: 99214

== ENCOUNTER → 2023-10-06 15:54 | Outpatient (BNVA) | payer BC, SELFPAY | PROVIDERS: PCP Internal Medicine; Visit Provider Nurse Practitioner Family | DX: R76.8 Other specified abnormal immunological findings in serum (principal) ==

== ENCOUNTER 2023-10-07 06:21 | Emergency (ER) | payer BC, SELFPAY ==
[2023-10-07] VITALS (7 sets, daily range): BP systolic 111–129; BP diastolic 60–86; PULSE 75–93; RESP 14–16; TEMP 36.2–37.4; O2SAT 95–97; BMI 25.7
[2023-10-07 08:03] LABS: MANUAL DIFF FLAG NO
[2023-10-07 08:05] LABS: Basophils Percent Auto 0.4 % (0-2); Eosinophils Absolute Auto 0.2 X10*3/uL (0.0-0.4); Eosinophils Percent Auto 1.8 % (0-4); Hematocrit 41.8 % (37.0-47.0); Hemoglobin 14.2 g/dl (12.0-16.0); Imm Gran Abs Auto 0.04 X10*3/uL (0.00-0.03); Imm Gran Pct Auto 0.4 % (0.0-0.4); Lymphocytes Absolute Auto 3.6 X10*3/uL (1.2-4.9); Lymphocytes Percent Auto 34.9 % (20-40); Mean Corpuscular Hemoglobin 31.3 pg (27.0-33.0); Mean Corpuscular Volume 92.3 fL (80.0-98.0); Mean Platelet Volume 9.1 fL (9.4-12.3); Monocytes Absolute Auto 0.7 X10*3/uL (0.1-1.2); Monocytes Percent Auto 7.3 % (2-11); Neutrophils Absolute Auto 5.6 x10*3/uL (2.0-8.3); Neutrophils Percent Auto 55.2 % (45-73); Platelet Count 285 X10*3/uL (160-400); Red Blood Count 4.53 X10*6/uL (4.20-5.50); Red Cell Distribution Width 11.9 % (11.0-16.0); White Blood Count 10.2 X10*3/uL (4.8-10.8)
[2023-10-07 08:25] LABS: Alanine Aminotransferase 20 U/L (0-31); Albumin Level 4.4 g/dL (3.5-5.0); Alkaline Phosphatase 90 U/L (39-117); Anion Gap 12 (12-20); Aspartate Amino Transferase 18 U/L (5-31); Bilirubin Total 0.5 mg/dL (0.0-1.0); Blood Urea Nitrogen 12 mg/dL (9-16); Calcium 9.9 mg/dL (8.4-10.2); Carbon Dioxide 27 mmol/L (22-29); Chloride 106 mmol/L (96-108); Creatinine Clr Calc Pharmacy 76.2; Estimated Glomerular Filt Rate > 60; Glucose Random 85 mg/dL (60-115); Potassium 4.2 mmol/L (3.3-5.1); Sodium 141 mmol/L (135-145); Total Protein 7.7 g/dL (6.5-8.0)
[2023-10-07 08:43] LABS: Influenza A PCR NEGATIVE (Negative); Influenza B PCR NEGATIVE (Negative); Resp Syncy Virus RNA Qual PCR NEGATIVE (Negative); SARS COV2 PCR INHOUSE NEGATIVE (Negative)
--- NOTE | 2023-10-07 09:16 | ED_ITS ---
HPI - Headache General Chief Complaint: Headache Stated Complaint: Headache/Nausea Time Seen by Provider: 10/07/23 08:58 Source: patient Mode of arrival: ambulatory Limitations: no limitations History of Present Illness HPI Narrative: 37 yo female with history of chronic headaches presents to the ER for evaluation of worsening diffuse headache since her lumbar puncture here w/ neurology on 09/27. She states she spoke with her neurologist last night who advised her to come to the ER for a blood patch. She states the headache is 10/10, different than her usual headaches. It is worse with sitting and standing, relieved when laying flat. +photophobia She states she has been laying flat for most of the days at home. She was getting up to eat but then her headache would become so severe she would need to lay back down. She has been drinking 1 cup of coffee per day, afraid to have too much with her anxiety history. MD elicited complaint: headache Pertinent past history: other (s/p LP on ) Onset (ago): day(s) Location: generalized Severity: severe Pain scale (0-10): 10 Quality & Timing: throbbing and sharp Exacerbating factors: sitting/standing and light Relieving factors: other (supine positioning) Context: other (s/p LP) Associated symptoms: nausea and photophobia Treatments prior to arrival: none Related Data Home Medications Medication Instructions Recorded Confirmed cetirizine 10 mg tablet 10 mg PO DAILY PRN 08/18/21 09/21/23 latanoprost 0.005 % eye drops 1 drp ophthalmic (eye) DAILY 08/18/21 09/21/23 multivitamin 1 tab PO DAILY 11/26/21 09/21/23 albuterol sulfate 2.5 mg/3 mL 2.5 mg inhalation Q4-6H 09/29/22 09/21/23 (0.083 %) solution for nebulization Previous Rx's Medication Instructions Recorded magnesium oxide 400 mg (241.3 mg 400 mg PO BEDTIME #30 tabs 05/18/22 magnesium) tablet rizatriptan 10 mg tablet See Rx Instructions PO .COMPLEX 30 06/15/22 days #12 tabs ondansetron 4 mg disintegrating 4 mg PO Q8H PRN nausea and 12/30/22 tablet vomiting 30 days #14 tabs levonorgestrel-ethinyl estradiol 1 tab PO DAILY #84 tabs 03/23/23 0.1 mg-20 mcg tablet cyclobenzaprine 5 mg tablet 5 mg PO BEDTIME 30 days #30 tabs 05/31/23 riboflavin (vitamin B2) 400 mg 400 mg PO QAM 30 days #30 tabs 06/25/23 tablet hgvrcpmcyh-huxvsfbdcugfb-cowyowvk 1 tab PO Q4H PRN headache 7 days 08/17/23 50 mg-325 mg-40 mg tablet #20 tabs gabapentin 300 mg capsule 300 mg PO BEDTIME 30 days #30 caps 09/03/23 albuterol sulfate 90 mcg/actuation 2 inh inhalation Q4H PRN shortness 09/13/23 aerosol inhaler of breath or wheezing #18 grams Allergies Allergy/AdvReac Type Severity Reaction Status Date / Time No Known Allergies Allergy Verified 10/07/23 06:30 Review of Systems 2 Review of Systems: Yes all other systems are reviewed and are negative [facility] Past Medical History Medical History Depression Anxiety Dysphagia Asthma Annual physical exam Glaucoma Headache Surgical History Hx of wisdom tooth extraction Family History Family History Father Colon cancer, Onset Age: 50 Mother Breast CA H/O thyroidectomy Social History Social History 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, 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 Alcohol intake: current Alcohol intake frequency: holidays/special occasions only Patient Tobacco Use Status: Former Tobacco user Tobacco use type: Cigarette Years Smoked: 5 years e-Cigarette/Vaping Use: Former Use Advance Directives: No Advance Directives Information Provided: No service: No Current occupational status: employed Cognitive needs: No Hearing needs: No Vision needs: Yes Physical Exam 2 Vital Signs: Vital Signs: Last Vital Signs Temp 97.2 F 10/07/23 15:09 Pulse 78 10/07/23 15:09 Resp 16 10/07/23 15:09 BP 129/86 10/07/23 15:09 Pulse Ox 97 10/07/23 15:09 O2 Del Method Room Air 10/07/23 15:09 BMI result Body Mass Index 25.7 Appearance: Alert. Oriented X3. Appears uncomfortable Head: normocephalic, atraumatic. Eyes: Pupils equal, round and reactive to light. ENT: Pharynx normal. No tonsillar swelling or exudate. Neck: Normal inspection. Neck supple. CVS: Normal heart rate and rhythm. Pulses normal. Respiratory: No respiratory distress. Breath sounds normal. Abdomen: Soft and nontender. +BS x4 Skin: Skin warm and dry. Normal skin color. Normal skin turgor. No rashes. Extremities: No lower extremity edema. No joint swelling. Neuro/psych: Oriented X 3. No motor deficit. No sensory deficit. CN II-XII intact. Normal speech and cognition. Steady gait Course Reevaluation(s) Reevaluation #1: physician observation initiated. pending IVF for post-LP headache. will d/w pharmacy to see if we have IV caffeine available pain management Dr. Vallejo to review the case and see if she is a candidate for a blood patch Time: 09:22 Reevaluation #2: Case was discussed with , Dr. Romo, Dr. Ramirez re: plan for blood patch Fortunately Dr. Ramirez was able to come and do the procedure this afternoon. will monitor after the procedure with plan to discharge later this evening Time: 15:43 Consultations Consultation #1: pain management Consultation #2: anesthesia Medications Administered Discontinued Medications Generic Name Dose Route Start Last Admin Trade Name Freq PRN Reason Stop Dose Admin Sodium Chloride 1,000 mls @ 999 mls/hr 10/07/23 09:15 10/07/23 11:54 Ns IV 10/07/23 10:15 Infused .Q1H1M NANCY Infusion Sodium Chloride 1,000 mls @ 999 mls/hr 10/07/23 09:15 10/07/23 12:57 Ns IV 10/07/23 10:15 Infused .Q1H1M NANCY Infusion Caffeine/Sodium Benzoate 250 501 mls @ 501 mls/hr 10/07/23 10:00 10/07/23 11:54 mg/ Sodium Chloride IV 10/07/23 10:59 Infused ONCE ONE Infusion Medical Decision Making Medical Decision Making MDM Narrative: 37-year-old female with history of chronic headaches, LUIS positive who presents to the ER for evaluation of worsening orthostatic headache since her lumbar puncture on September 27. She was referred to the ER by her neurology nurse practitioner for a blood patch. Dr. Ramirez completed blood patch in the ER. Differential Diagnosis Differential Diagnoses: The differential diagnosis associated with the presentation includes Post lumbar puncture headache, pseudotumor cerebri, chronic migraines, dehydration Admission/Observation Consideration of admission/observation: Escalation of care including admission/observation considered Consult Healthcare Provider Management of the patient was discussed with: Livestock Inspector Dr. Vallejo recommending 3 days of laying flat unless up to have a bowel movement Dr. Romo from aneesthesia came to see the patient at the bedside and discuss options Dr. Ramirez from pain management able to perform the procedure at the bedside Lab Data MDM Lab Attestation statement: I reviewed the patient's lab results. 10/07/23 07:56 10/07/23 07:56 Labs: Lab Results 10/07/23 Range/Units 07:56 WBC 10.2 (4.8-10.8) X10*3/uL RBC 4.53 (4.20-5.50) X10*6/uL Hgb 14.2 (12.0-16.0) g/dl Hct 41.8 (37.0-47.0) % MCV 92.3 (80.0-98.0) fL MCH 31.3 (27.0-33.0) pg MCHC 34.0 (31.0-35.0) g/dl RDW 11.9 (11.0-16.0) % Plt Count 285 (160-400) X10*3/uL MPV 9.1 L (9.4-12.3) fL Immature Gran % (Auto) 0.4 (0.0-0.4) % Neut % (Auto) 55.2 (45-73) % Lymph % (Auto) 34.9 (20-40) % [place] % (Auto) 7.3 (2-11) % Eos % (Auto) 1.8 (0-4) % Baso % (Auto) 0.4 (0-2) % Lymph # (Auto) 3.6 (1.2-4.9) X10*3/uL [place] # (Auto) 0.7 (0.1-1.2) X10*3/uL Eos # (Auto) 0.2 (0.0-0.4) X10*3/uL Baso # (Auto) 0.0 (0.0-0.2) X10*3/uL Abs Immat Gran (auto) 0.04 H (0.00-0.03) X10*3/uL Absolute Neuts (auto) 5.6 (2.0-8.3) x10*3/uL Absolute Nucleated RBC 0.000 (0.0-0.012) X10*3/uL Nucleated RBC % (auto) 0.0 (0.0-0.2) /100WBC Sodium 141 (135-145) mmol/L Potassium 4.2 (3.3-5.1) mmol/L Chloride 106 (96-108) mmol/L Carbon Dioxide 27 (22-29) mmol/L Anion Gap 12 (12-20) BUN 12 (9-16) mg/dL Creatinine 0.93 (0.5-1.4) mg/dL Estim Creat Clear Calc 76.2 Estimated GFR > 60 Random Glucose 85 (60-115) mg/dL Calcium 9.9 (8.4-10.2) mg/dL Total Bilirubin 0.5 (0.0-1.0) mg/dL AST 18 (5-31) U/L ALT 20 (0-31) U/L Alkaline Phosphatase 90 (39-117) U/L Total Protein 7.7 (6.5-8.0) g/dL Albumin 4.4 (3.5-5.0) g/dL Influenza Type A (PCR) NEGATIVE (Negative) Influenza Type B (PCR) NEGATIVE (Negative) RSV RNA Qual (PCR) NEGATIVE (Negative) SARS-CoV-2 RNA (RT-PCR) NEGATIVE (Negative) External Record Review External record reviewed: Office record, Outpatient record, Prior outpatient labs and Prior outpatient radiology Prescription Management I considered prescription management with: Pain Medication Chronic Conditions Patient?s care impacted by: Other (chronic headaches) Critical Care Time Critical Care Time Critical Care Time: Yes Total Critical Care Time: 69 Attestation: I have personally provided critical care time exclusive of time spent on separately billable procedures. Time includes review of lab data, radiology results, discussion with consultants, and monitoring for potential decompensation. Intervention performed as documented. Discharge Plan Discharge Clinical Impression: Post-dural puncture headache Patient Disposition: Home, Self-Care Instructions: Epidural Blood Patch (DC) Additional Instructions: follow up with your neurologist If you develop new or worsening symptoms call 911 or come back to the ER for further evaluation. Prescriptions: No Action levonorgestrel-ethinyl estrad 0.1-20 mg-mcg tablet 1 tab PO DAILY Qty: 84 1RF riboflavin (vitamin B2) 400 mg tablet 400 mg PO QAM 30 Days Qty: 30 6RF gabapentin 300 mg capsule 300 mg PO BEDTIME 30 Days Qty: 30 3RF albuterol sulfate 90 mcg/actuation HFA aerosol inhaler 2 inh inhalation Q4H PRN (Reason: shortness of breath or wheezing) Qty: 18 3RF cetirizine 10 mg tablet 10 mg PO DAILY PRN latanoprost 0.005 % drops 1 drp ophthalmic (eye) DAILY multivitamin Tablet 1 tab PO DAILY magnesium oxide 400 mg (241.3 mg magnesium) tablet 400 mg PO BEDTIME Qty: 30 6RF rizatriptan 10 mg tablet See Rx Instructions PO .COMPLEX 30 Days Qty: 12 2RF Rx Instructions: take 1 tab at onset of headache; if no relief may repeat 1 tab after at least 2 hrs; max = 3 tabs/24 hr PO albuterol sulfate 2.5 mg /3 mL (0.083 %) solution for nebulization 2.5 mg inhalation Q4-6H ondansetron 4 mg tablet,disintegrating 4 mg PO Q8H PRN (Reason: nausea and vomiting) 30 Days Qty: 14 2RF cyclobenzaprine 5 mg tablet 5 mg PO BEDTIME 30 Days Qty: 30 1RF uqgjmkvpeu-ipirrlodzrthu-qfcf 50-325-40 mg tablet 1 tab PO Q4H PRN (Reason: headache) 7 Days Qty: 20 2RF Rx Instructions: max 2 tabs per day or 6 tabs per week Referrals: Francia Schafer MD [Primary Care Provider] -
[2023-10-07] MEDS: 0.9 % Sodium Chloride 1,000 ML 999 ML IV ×2 (10:07)
[2023-10-07] MEDS: Caffeine/Sodium Benzoate 250 MG in 0.9 % Sodium Chloride 500 ML 501 MG IV (10:07)
--- NOTE | 2023-10-07 10:20 | PC.NURSE ---
ptient a&ox3, iv inserted, pt medicated per order, vss, pt placed in 10% trendelenburg per provider request, call guzman within reach, will continue to monitor.
--- NOTE | 2023-10-07 12:38 | PC.NURSE ---
pts ivf have completed, pt c/o 03/21 headache, vitals currently stable, call guzman within reach, will continue to monitor.
--- NOTE | 2023-10-07 16:28 | HO.PAINCONS ---
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 Alcohol intake: current Alcohol intake frequency: holidays/special occasions only Patient Tobacco Use Status: Former Tobacco user Tobacco use type: Cigarette Years Smoked: 5 years e-Cigarette/Vaping Use: Former Use Advance Directives: No Advance Directives Information Provided: No service: No Current occupational status: employed Cognitive needs: No Hearing needs: No Vision needs: Yes Physical Exam Vital Signs: Vital Signs: Last Vital Signs Temp 97.2 F 10/07/23 15:09 Pulse 78 10/07/23 15:09 Resp 16 10/07/23 15:09 BP 129/86 10/07/23 15:09 Pulse Ox 97 10/07/23 15:09 O2 Del Method Room Air 10/07/23 15:09 BMI result Body Mass Index 25.7 Assessment and Plan (1) Post-dural puncture headache: Status: Acute Plan 37-year-old female status post epidural blood patch. We were able to withdraw 13 cc only despite multiple venous sticks and multiple IV infiltration. If she is unable to gain the desired level of relief from this procedure today, it may be repeated with more reliable IV access placed ahead of time. Total time managing care of this patient today: 80 minutes.
== END 2023-10-07 17:35 | disposition home or self-care (01) ==
PROVIDERS: Emergency Provider Emergency Medicine; PCP Internal Medicine
DX: G97.1 Other reaction to spinal and lumbar puncture (principal); Y84.4 Aspiration of fluid as the cause of abnormal reaction of the patient, or of later complication, without mention of misadventure at the time of the procedure; Y92.9 Unspecified place or not applicable; Z11.52 Encounter for screening for COVID-19; Z20.828 Contact with and (suspected) exposure to other viral communicable diseases
CPT/HCPCS: 0241U; 36415; 62273; 80053; 85025; 96365; 96366; 99284

== ENCOUNTER → 2023-10-07 07:48 | Outpatient (BNV) | payer BC, SELFPAY | PROVIDERS: Emergency Provider Emergency Medicine; PCP Internal Medicine; Visit Provider Internal Medicine | DX: G97.1 Other reaction to spinal and lumbar puncture (principal) | CPT/HCPCS: 62273 ==

== ENCOUNTER 2023-12-22 07:32 | Outpatient (AMB) | payer OTHER, SELFPAY ==
--- NOTE | 2023-12-22 07:35 | MHC.OFFVIS ---
Vital Signs 12/22/23 07:38 Weight 142 lb 8 oz BP 116/70 Blood Pressure Location Rt brachial Position Sitting Respiration 16 Pulse 71 Pulse Source Pulse Oximeter Pulse Oximetry (%) 95 Oxygen Delivery Method Room Air Intake Visit Reasons: 2 mo f/u at 7:30am spot-Conf Intake Note: Pt presents to the office for a 3 month follow up for photophobia. 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: No Allergies No Known Allergies Allergy (Verified 12/22/23 10:51) Medication List - Last Reconciled 12/22/23 by HILARY Castro albuterol sulfate 90 mcg/actuation 2 inhalations inhalation Q4H PRN albuterol sulfate 2.5 mg inhalation Q4-6H jfquphgmkj-teyoxwmjmfimd-cjgl 50-325-40 mg 1 tab PO Q4H PRN 7 days cetirizine 10 mg PO DAILY PRN cyclobenzaprine 5 mg PO BEDTIME 30 days gabapentin 300 mg PO BEDTIME 30 days latanoprost 0.005% 1 drp ophthalmic (eye) DAILY levonorgestrel-ethinyl estrad 0.1-20 mg-mcg 1 tab PO DAILY magnesium oxide 400 mg PO BEDTIME multivitamin 1 tab PO DAILY ondansetron 4 mg PO Q8H PRN 30 days riboflavin (vitamin B2) 400 mg PO QAM 30 days rizatriptan take 1 tab at onset of headache; if no relief may repeat 1 tab after at least 2 hrs; max = 3 tabs/24 hr PO 30 days HPI Comments Details: 38-yr-old female presents for f/u visit. Pt reports since the last visit, she did go to the ER and have a blind EBP on 10/07/23 (due to worsening of her orthostatic headache following the LP 09/28/23). Pt reports that the ER was not able to obtain the full amount of blood they would have liked before doing the EBP. However she did still have benefit, and has had a few months of decreased orthostatic positional headache and decreased photophobia. However, the positional headache and marked photophobia have gradually worsened. At this time, she is having a daily constant headache, some days more severe. States some days a headache and other days a migraine. She is spending a lot of time during the day in bed, but is trying to get up and walk around some. Taking 1 cup of coffee per day She is using butalbital- only at night as it makes her sleepy. She has made herself an appointment w/ pain managmenet- to discuss having repeat EBP. 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 Alcohol intake: current Alcohol intake frequency: holidays/special occasions only Patient Tobacco Use Status: Former Tobacco user Tobacco use type: Cigarette Years Smoked: 5 years e-Cigarette/Vaping Use: Former Use service: No Current occupational status: employed Cognitive needs: No Hearing needs: No Vision needs: Yes Female Reproductive History Menstrual Age of Menarche: 14 Physical Exam Vital Signs: Last Vital Signs Pulse 71 12/22/23 07:38 Resp 16 12/22/23 07:38 BP 116/70 12/22/23 07:38 Pulse Ox 95 12/22/23 07:38 Oxygen Delivery Method Room Air 12/22/23 07:38 Const General: cooperative and no acute distress Orientation/consciousness: patient oriented x3 Resp Effort & Inspection: normal respiratory effort and able to speak in complete sentences Neuro Other: Marked photophobia. Note application of FL-41 light filtering glasses reduces photophobia considerably. General: patient oriented x3 and deep tendon reflexes 2+ bilaterally Cranial nerves: Yes CN's II-XII intact bilaterally Cognition (Neuro): normal cognition Gait exam (Neuro): Normal gait present Motor exam (neuro): 5/5 motor strength present throughout Psych Appearance: grossly normal Mental Status: mental status grossly normal Speech and movement: Normal speech and movement present Affect: normal affect Attitude: cooperative Assessment & Plan Assessment & Plan (1) Increased frequency of headaches: Code(s): R51.9 - Headache, unspecified Category: Medical (2) Positional headache: Code(s): R51.0 - Headache with orthostatic component, not elsewhere classified Category: Medical (3) Positive LUIS (antinuclear antibody): Code(s): R76.8 - Other specified abnormal immunological findings in serum Category: Medical (4) Glaucoma: Code(s): H40.9 - Unspecified glaucoma Category: Medical (5) Chronic migraine without aura: Code(s): G43.709 - Chronic migraine without aura, not intractable, without status migrainosus Category: Medical Qualifiers: Intractability: intractable (6) Photophobia: Code(s): H53.149 - Visual discomfort, unspecified Category: Medical Plan Pt had positive impact from the blind EBP Pt advised to undergo [place] spine MRI w/wo and myelogram- to determine if there is a potential CSF leak site. C-spine MRI w/wo T-spine MRI w/wo L-spine MRI w/wo [place]-spine myelogram. Increase po caffeine Increase fluids- including electrolyte replacement Trial Rizatriptan. May continue Fioricet prn. Information shared on FL-41 light filtering glasses. I have asked pt to see which [place] [employer] systems are in network w/ her insurance, in the event that work-up does suggest a SIH process. Previous headache prevention trials- topiramate- ineffective, qulipta 30 and 60mg- ineffective, emgality ineffective. Pt is advised to abstain from work through f/u here in 3-4 months. We will check in on pt 1 week and f/u upon review of above. F/u visit in 3-4 months or sooner prn. Addendum- reviewed pain management note- referral placed for neuro-ophthalomogy at [facility]. Orders: Orders MR cervical spine wo/w con 12/22/23 R51.0 - Headache with orthostatic component, not elsewhere classified, R51.9 - Headache, unspecified, R76.8 - Other specified abnormal immunological findings in serum [place] myelogram spine thoracic 12/22/23 R51.0 - Headache with orthostatic component, not elsewhere classified, R51.9 - Headache, unspecified, R76.8 - Other specified abnormal immunological findings in serum MR thoracic spine wo/w con 12/22/23 R51.0 - Headache with orthostatic component, not elsewhere classified, R51.9 - Headache, unspecified, R76.8 - Other specified abnormal immunological findings in serum MR lumbar spine wo/w con 12/22/23 R51.0 - Headache with orthostatic component, not elsewhere classified, R51.9 - Headache, unspecified, R76.8 - Other specified abnormal immunological findings in serum [place] myelogram spine cervical 12/22/23 R51.0 - Headache with orthostatic component, not elsewhere classified, R51.9 - Headache, unspecified, R76.8 - Other specified abnormal immunological findings in serum [place] myelogram spine lumbosacral 12/22/23 R51.0 - Headache with orthostatic component, not elsewhere classified, R51.9 - Headache, unspecified, R76.8 - Other specified abnormal immunological findings in serum Referrals Ophthalmology Referral G43.709 - Chronic migraine without aura, not intractable, without status migrainosus, H40.9 - Unspecified glaucoma, H53.149 - Visual discomfort, unspecified, R51.0 - Headache with orthostatic component, not elsewhere classified Coding Level of Care Code Est Pt Level 4 (88350) Complex EM visit Add On G2211 Diagnoses Increased frequency of headaches R51.9 Positional headache R51.0 Positive LUIS (antinuclear antibody) R76.8 Glaucoma H40.9 Chronic migraine without aura G43.709 Intractability: intractable Photophobia H53.149
[2023-12-22 07:38] VITALS: BP 116/70; PULSE 71; RESP 16; O2SAT 95
== END 2023-12-22 08:37 | disposition home or self-care (01) ==
PROVIDERS: PCP Internal Medicine; Visit Provider Nurse Practitioner Family
DX: R51.9 Headache, unspecified (principal); R51.0 Headache with orthostatic component, not elsewhere classified; R76.8 Other specified abnormal immunological findings in serum; H40.9 Unspecified glaucoma; G43.709 Chronic migraine without aura, not intractable, without status migrainosus; H53.149 Visual discomfort, unspecified
CPT/HCPCS: 99214; G2211

== ENCOUNTER → 2023-12-22 07:32 | Outpatient (BNVA) | payer OTHER, SELFPAY | PROVIDERS: PCP Internal Medicine; Visit Provider Nurse Practitioner Family ==

== ENCOUNTER 2023-12-22 10:30 | Outpatient (AMB) | payer OTHER, SELFPAY ==
--- NOTE | 2023-12-22 10:43 | MHC.OFFVIS ---
Vital Signs 12/22/23 10:50 Height 5 ft 3 in Weight 142 lb BMI 25.2 BP 117/59 L Blood Pressure Location Lt brachial Position Sitting Respiration 14 Pulse 86 Pulse Source Pulse Oximeter Pulse Oximetry (%) 96 Oxygen Delivery Method Room Air Intake Visit Reasons: DISCUSSION FOR REPEAT BLOOD PATCH Allergies No Known Allergies Allergy (Verified 12/22/23 10:51) Medication List - Last Reconciled 12/22/23 by Louann Alcala LPN albuterol sulfate 90 mcg/actuation 2 inhalations inhalation Q4H PRN albuterol sulfate 2.5 mg inhalation Q4-6H didkpdtqjh-emvurgepfsmsp-ppcz 50-325-40 mg 1 tab PO Q4H PRN 7 days cetirizine 10 mg PO DAILY PRN cyclobenzaprine 5 mg PO BEDTIME 30 days gabapentin 300 mg PO BEDTIME 30 days latanoprost 0.005% 1 drp ophthalmic (eye) DAILY levonorgestrel-ethinyl estrad 0.1-20 mg-mcg 1 tab PO DAILY magnesium oxide 400 mg PO BEDTIME multivitamin 1 tab PO DAILY ondansetron 4 mg PO Q8H PRN 30 days riboflavin (vitamin B2) 400 mg PO QAM 30 days rizatriptan take 1 tab at onset of headache; if no relief may repeat 1 tab after at least 2 hrs; max = 3 tabs/24 hr PO 30 days HPI HPI DISCUSSION FOR REPEAT BLOOD PATCH: Details: 38-year-old female presenting for new patient evaluation of chronic migraine and headache disorder. She is previously known to me from an encounter for an epidural blood patch in the emergency department. She had good response to the EBP following a post spinal postural headache after an LP. Since then she has continued to have daily headaches sometimes associated with photophobia and nausea. She has been seen by Neurology for headache symptom management. She has exhausted multiple medications for migraine treatment including amitriptyline, sumatriptan, rizatriptan, topiramate, atogepant, Emgality, Nurtec. She is currently taking Fioricet but that makes her drowsy. Her symptoms had started after a camping trip during which she developed retro-orbital pain on 1 side that was subsequently diagnosed as glaucoma. She has not been seen by Neuro-Ophthalmology. She describes daily headaches every day of the month, often associated with photophobia and phonophobia. There is a mild positional component to it. On her most recent visit with Neurology this morning, she was prescribed workup for ruling out a spontaneous CSF leak. 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 Alcohol intake: current Alcohol intake frequency: holidays/special occasions only Patient Tobacco Use Status: Former Tobacco user Tobacco use type: Cigarette Years Smoked: 5 years e-Cigarette/Vaping Use: Former Use service: No Current occupational status: employed Cognitive needs: No Hearing needs: No Vision needs: Yes Female Reproductive History Menstrual Age of Menarche: 14 Review of Systems Const All systems reviewed & are unremarkable except as noted in HPI and below Physical Exam Vital Signs: Last Vital Signs Pulse 86 12/22/23 10:50 Resp 14 12/22/23 10:50 BP 117/59 L 12/22/23 10:50 Pulse Ox 96 12/22/23 10:50 Oxygen Delivery Method Room Air 12/22/23 10:50 BMI result Body Mass Index 25.2 General: Appears afebrile. Alert and oriented. Mood and affect appropriate. Follows and participates in conversation appropriately. Respiratory effort is unlabored. Able to transition from sit to stand unassisted. She is squinting her eyes from photophobia. The headache is localized around the front tell, temporal and occipital region. She denies neck pain. Lying flat produces a mild, barely noticeable, improvement in her symptoms. Sitting upright produces mild discomfort. Results Reviewed Results Reviewed: No imaging is available for review Assessment & Plan Assessment & Plan (1) Chronic migraine without aura: Code(s): G43.709 - Chronic migraine without aura, not intractable, without status migrainosus Category: Medical Qualifiers: Intractability: intractable (2) Chronic daily headache: Code(s): R51.9 - Headache, unspecified Category: Medical Plan 38-year-old female with daily headaches associated with photophobia and nausea that have not responded to multiple medications. She has so far not had a trial of Botox injections. This was previously brought up by her neurologist but she was not interested in pursuing it due to fear of needles and the need for repeating the treatment every 3 months. She has also tried a noninvasive neuromodulation device on her arm that has not been helpful. I discussed the options that we can offer including Botox and peripheral nerve stimulators. I went over the risks and benefits of the options and provided her with a brochure. At the same time I also recommended that she tried to establish care with a neuro is analyst given the onset of her symptoms was associated with a concomitant diagnosis of glaucoma. She is steroid for MRI with contrast for her cervical thoracic and lumbar spines that she will undergo. I counseled her to defer the myelograms until after the MRIs given that she developed a significant post dural puncture headache following her last LP. Scribed for Dr. Ramirez by Luis E Arriola, medical transcriber, on 12/22/2023. I, Dr. Ramirez, have personally reviewed and agree with the information entered by the scribe. Coding Level of Care Code New Pt Level 4 (80900) Diagnoses Chronic migraine without aura G43.709 Intractability: intractable Chronic daily headache R51.9
[2023-12-22 10:50] VITALS: BP 117/59; PULSE 86; RESP 14; O2SAT 96; BMI 25.2
== END 2023-12-22 11:17 | disposition home or self-care (01) ==
PROVIDERS: PCP Internal Medicine; Visit Provider Internal Medicine
DX: G43.709 Chronic migraine without aura, not intractable, without status migrainosus (principal); R51.9 Headache, unspecified
CPT/HCPCS: 99214

== ENCOUNTER 2024-03-22 15:01 | Outpatient (AMB) | payer OTHER, SELFPAY ==
[2024-03-22 15:19] VITALS: BP 118/58; PULSE 80; O2SAT 97; BMI 25.4
--- NOTE | 2024-03-22 15:19 | MHC.OFFVIS ---
Vital Signs 03/22/24 15:19 Height 5 ft 3 in Weight 143 lb 8.335 oz BMI 25.4 BP 118/58 L Blood Pressure Location Lt brachial Position Sitting Pulse 80 Pulse Source Pulse Oximeter Pulse Oximetry (%) 97 Oxygen Delivery Method Room Air Intake Visit Reasons: + LUIS Intake Note: Presents today for + LUIS. She states that the pain is in her head for 3 years with migraines every day. She states she takes Gabapentin, and Butabital with little relief. Allergies No Known Allergies Allergy (Verified 03/22/24 15:24) Medication List - Last Reconciled 03/22/24 by Kelby Lopez MD albuterol sulfate 90 mcg/actuation 2 inhalations inhalation Q4H PRN albuterol sulfate 2.5 mg inhalation Q4-6H madvnesedt-otquyemyogohj-rvhg 50-325-40 mg 1 tab PO Q4H PRN 7 days cetirizine 10 mg PO DAILY PRN cyclobenzaprine 5 mg PO BEDTIME 30 days gabapentin 300 mg PO BEDTIME 30 days latanoprost 0.005% 1 drp ophthalmic (eye) DAILY levonorgestrel-ethinyl estrad 0.1-20 mg-mcg 1 tab PO DAILY magnesium oxide 400 mg PO BEDTIME multivitamin 1 tab PO DAILY ondansetron 4 mg PO Q8H PRN 30 days riboflavin (vitamin B2) 400 mg PO QAM 30 days rizatriptan take 1 tab at onset of headache; if no relief may repeat 1 tab after at least 2 hrs; max = 3 tabs/24 hr PO 30 days Is last menstrual period known: Yes Last menstrual period: 03/21/24 HPI Comments Details: This is a 38-year-old female who is referred by Neurology for evaluation of a positive LUIS. This was ordered in the setting of migraines. Upon questioning patient states that she gets intermittent rashes on her eyelids and rashes on her knuckles. They tend to come and go. She denies any significant rashes on her cheeks or trunk. She denies any significant joint pain stiffness or swelling. She does not have recurrent mouth sores. Denies any unintentional weight loss or unexplained fevers. She is unaware of any family history of an autoimmune rheumatic disease. Denies any history of DVT/PE. 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 Alcohol intake: current Alcohol intake frequency: holidays/special occasions only Patient Tobacco Use Status: Former Tobacco user Tobacco use type: Cigarette Years Smoked: 5 years e-Cigarette/Vaping Use: Former Use service: No Current occupational status: employed 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 Cognitive needs: No Hearing needs: No Vision needs: Yes Female Reproductive History Menstrual Age of Menarche: 14 Date of last menstrual period: 03/21/24 Total pregnancies: 0 Review of Systems Const Denies fever(s) and Denies weight loss ENT Reports no additional complaints Musc Denies arthralgias and Denies joint swelling Skin/Breast Reports lesions and Reports rash Physical Exam Vital Signs: Last Vital Signs Pulse 80 03/22/24 15:19 BP 118/58 L 03/22/24 15:19 Pulse Ox 97 03/22/24 15:19 Oxygen Delivery Method Room Air 03/22/24 15:19 BMI result Body Mass Index 25.4 Const General: cooperative, healthy appearing and comfortable Nutritional Appearance: average body habitus Orientation/consciousness: patient oriented x3 Limitations: no limitations HEENT Head: Yes normocephalic and Yes atraumatic Mouth: moist mucous membranes Resp Effort & Inspection: normal respiratory effort and able to speak in complete sentences Auscultation: clear to auscultation bilaterally Cardio Rate: regular rate Rhythm: regular rhythm Neuro General: patient oriented x3 Extrem Other: No active synovitis Normal nailfold capillaroscopy Assessment & Plan Assessment & Plan (1) Positive LUIS (antinuclear antibody): Code(s): R76.8 - Other specified abnormal immunological findings in serum Category: Medical Plan: This is a 38-year-old female who presents for evaluation of positive LUIS which was ordered in the context of migraines. Upon evaluation I do not see any evidence of an autoimmune rheumatic disease. Discussed with patient that about 20% of the population can have a positive LUIS with no underlying autoimmune rheumatic illness. Follow-up as needed Plan I spent 20 minutes reviewing patient's chart, evaluating patient, counseling patient and documenting in the chart Coding Level of Care Code New Pt Level 3 (78094) Diagnoses Positive LUIS (antinuclear antibody) R76.8
== END 2024-03-22 15:57 | disposition home or self-care (01) ==
PROVIDERS: PCP Internal Medicine; Visit Provider Student in an Organized Health Care Education/Training Program
DX: R76.8 Other specified abnormal immunological findings in serum (principal)
CPT/HCPCS: 99203

== ENCOUNTER → 2024-03-22 15:01 | Outpatient (BNVA) | payer OTHER, SELFPAY | PROVIDERS: PCP Internal Medicine; Visit Provider Student in an Organized Health Care Education/Training Program | DX: R76.8 Other specified abnormal immunological findings in serum (principal) | CPT/HCPCS: 99202 ==

== ENCOUNTER 2024-04-06 12:54 | Outpatient (REF) | payer OTHER, SELFPAY ==
--- NOTE | ~2024-04-06 | MR_ITS ---
MR LUMBAR SPINE WITHOUT AND WITH CONTRAST CLINICAL INFORMATION: Abnormal immunological findings in serum. COMPARISON: None available. TECHNIQUE: MRI of the lumbar spine was obtained using routine sequences with and without contrast. Intravenous contrast: Gadavist 6.5 mL FINDINGS: There are 5 nonrib-bearing lumbar-type vertebral bodies. Lumbar alignment is normal. The vertebral body heights are maintained. The disc volumes are preserved and the discs remain well-hydrated. There is no bone marrow edema. There are no acute fractures. Bone marrow signal is homogenous and normal. No suspicious enhancing intraosseous lesions. There is no pathologic intrathecal enhancement. No enhancement along the cauda equina nerve roots. Conus terminates at the L2 level. At L4-L5, there is a small diffuse annular disc bulge and there is mild bilateral facet arthropathy without central canal stenosis nor foraminal stenosis. The remaining lumbar disc contours are normal. No central canal stenosis and no foraminal stenosis within the lumbar spine. MR/MR lumbar spine wo/w con IMPRESSION: At L4-L5, there is a small diffuse annular disc bulge and there is mild bilateral facet arthropathy without central canal stenosis nor foraminal stenosis. The remaining lumbar disc contours are normal. No central canal stenosis and no foraminal stenosis within the lumbar spine. No pathologic enhancement. Electronically signed by: Marco Hadley MD 04/06/2024 03:58 PM EDT
[2024-04-06] MEDS: gadobutroL 7.5 ML VIAL IVPUSH (14:13)
== END 2024-04-06 12:55 | disposition home or self-care (01) ==
LOC: HO.MRI 12:54
PROVIDERS: PCP Internal Medicine; Visit Provider Nurse Practitioner Family
DX: R76.8 Other specified abnormal immunological findings in serum (principal); R51.0 Headache with orthostatic component, not elsewhere classified
CPT/HCPCS: 72158; A9585

== ENCOUNTER 2024-04-08 13:01 | Outpatient (REF) | payer OTHER, SELFPAY ==
--- NOTE | ~2024-04-08 | MR_ITS ---
MRI OF CERVICAL SPINE WITH AND WITHOUT IV CONTRAST MRI OF THORACIC SPINE WITH AND WITHOUT IV CONTRAST INDICATION: Positional headache, increased frequency, chronic migraines, positive LUIS. COMPARISON: None available. TECHNIQUE: Multiplanar multisequence MR imaging of the cervical and thoracic spine was obtained before and after administration of 7 mL Gadavist. FINDINGS: No acute bone marrow abnormality or suspicious enhancement. The visualized spinal cord is normal in caliber. No abnormal cord signal or enhancement. The paravertebral soft tissues are unremarkable. The imaged intrathoracic and intra-abdominal structures are grossly within normal limits. CERVICAL SPINE: The imaged posterior fossa is unremarkable. Straightening of the normal cervical lordosis. No listhesis. The vertebral body heights are preserved. Multilevel disc desiccation without significant disc height loss. C2-3: No significant spinal canal or neural foraminal narrowing. C3-4: Disc osteophyte complex. No significant spinal canal or neural foraminal narrowing. C4-5: No significant spinal canal or neural foraminal narrowing. C5-6: Disc osteophyte complex. No significant canal or neural foraminal narrowing. C6-7: Disc osteophyte complex. No significant spinal canal or neural foraminal narrowing. C7-T1: No significant spinal canal or neural foraminal narrowing. THORACIC SPINE: Preservation of the normal thoracic kyphosis. No listhesis. The vertebral body heights are preserved. The disc spaces are also preserved. No significant disc herniation, spinal canal stenosis, or neural foraminal narrowing. MR/MR cervical spine wo/w con IMPRESSION: -No acute abnormality within the cervical and thoracic spine. -Mild multilevel degenerative changes predominantly in the cervical spine. No significant spinal canal stenosis or neural foraminal narrowing throughout the cervical or thoracic spine. Electronically signed by: Filipe Quinn MD 04/08/2024 02:45 PM EDT
--- NOTE | ~2024-04-08 | MR_ITS ---
MRI OF CERVICAL SPINE WITH AND WITHOUT IV CONTRAST MRI OF THORACIC SPINE WITH AND WITHOUT IV CONTRAST INDICATION: Positional headache, increased frequency, chronic migraines, positive LUIS. COMPARISON: None available. TECHNIQUE: Multiplanar multisequence MR imaging of the cervical and thoracic spine was obtained before and after administration of 7 mL Gadavist. FINDINGS: No acute bone marrow abnormality or suspicious enhancement. The visualized spinal cord is normal in caliber. No abnormal cord signal or enhancement. The paravertebral soft tissues are unremarkable. The imaged intrathoracic and intra-abdominal structures are grossly within normal limits. CERVICAL SPINE: The imaged posterior fossa is unremarkable. Straightening of the normal cervical lordosis. No listhesis. The vertebral body heights are preserved. Multilevel disc desiccation without significant disc height loss. C2-3: No significant spinal canal or neural foraminal narrowing. C3-4: Disc osteophyte complex. No significant spinal canal or neural foraminal narrowing. C4-5: No significant spinal canal or neural foraminal narrowing. C5-6: Disc osteophyte complex. No significant canal or neural foraminal narrowing. C6-7: Disc osteophyte complex. No significant spinal canal or neural foraminal narrowing. C7-T1: No significant spinal canal or neural foraminal narrowing. THORACIC SPINE: Preservation of the normal thoracic kyphosis. No listhesis. The vertebral body heights are preserved. The disc spaces are also preserved. No significant disc herniation, spinal canal stenosis, or neural foraminal narrowing. MR/MR thoracic spine wo/w con IMPRESSION: -No acute abnormality within the cervical and thoracic spine. -Mild multilevel degenerative changes predominantly in the cervical spine. No significant spinal canal stenosis or neural foraminal narrowing throughout the cervical or thoracic spine. Electronically signed by: Filipe Quinn MD 04/08/2024 02:45 PM EDT
[2024-04-08] MEDS: gadobutroL 7.5 ML VIAL IVPUSH (14:03)
== END 2024-04-08 13:02 | disposition home or self-care (01) ==
LOC: HO.MRI 13:01
PROVIDERS: PCP Internal Medicine; Visit Provider Nurse Practitioner Family
DX: R76.8 Other specified abnormal immunological findings in serum (principal); R51.0 Headache with orthostatic component, not elsewhere classified
CPT/HCPCS: 72156; 72157; A9585

== ENCOUNTER 2024-04-13 07:27 | Outpatient (AMB) | payer OTHER, SELFPAY ==
[2024-04-13 07:30] VITALS: BMI 25.2
--- NOTE | 2024-04-13 07:30 | MHC.OFFVIS ---
Vital Signs 04/13/24 07:30 Height 5 ft 3 in Weight 142 lb BMI 25.2 Intake Visit Reasons: Follow up Intake Note: Patiet presents for follow up. headaches are pretty much the same Allergies No Known Allergies Allergy (Verified 04/13/24 07:33) Medication List - Last Reconciled 04/13/24 by Sabina Nava, HILARY albuterol sulfate 90 mcg/actuation 2 inhalations inhalation Q4H PRN albuterol sulfate 2.5 mg inhalation Q4-6H nojnlkwpjh-uezzfclnoedpe-shbe 50-325-40 mg 1 tab PO Q4H PRN 7 days cetirizine 10 mg PO DAILY PRN cyclobenzaprine 5 mg PO BEDTIME 30 days gabapentin 300 mg PO BEDTIME 30 days latanoprost 0.005% 1 drp ophthalmic (eye) DAILY magnesium oxide 400 mg PO BEDTIME multivitamin 1 tab PO DAILY ondansetron 4 mg PO Q8H PRN 30 days riboflavin (vitamin B2) 400 mg PO QAM 30 days rizatriptan take 1 tab at onset of headache; if no relief may repeat 1 tab after at least 2 hrs; max = 3 tabs/24 hr PO 30 days HPI Comments Details: 38-yr-old female presents for f/u visit of headache. Pt continues to have a daily constant headache and marked photophobia, some days more severe. States some days a headache and other days a migraine. The headache continues to be triggered by getting OOB and better when laying flat. Gabapentin helps with sleep, but not sure if it has any affect on her headaches. Taking increased fluids, and electrolyte replacement supplements does help her headache. She is working again, now from home, which is better in that she can control the noise and light level exposure. Taking 1-2 cups of coffee per day. Taking more caffeine helps the headache, but she is wary to take too much as too much coffee can make her jittery and make it difficult to fall asleep. She is using butalbital- only at night as it makes her sleepy. She did have pain management consult- to discuss having repeat EBP. However they did not offer to repeat LP. They suggested holding the CT myelogram until after [place]-spine MRIs completed d/t h/o worsening low pressure headache after her last LP in October 2023. Though pt notes she did not have any signs of worsening low pressure headache after she had the post-Lp blind EBP. They did also suggest she see neuroophthalmology. She saw rheumatoloigy for positive LUIS- they did not feel further work-up was indicated. Interval work-up: 04/08/24, MR/MR cervical and thoracic spine wo/w con IMPRESSION: -No acute abnormality within the cervical and thoracic spine. -Mild multilevel degenerative changes predominantly in the cervical spine. No significant spinal canal stenosis or neural foraminal narrowing throughout the cervical or thoracic spine 04/06/24 MR/MR lumbar spine wo/w con IMPRESSION: At L4-L5, there is a small diffuse annular disc bulge and there is mild bilateral facet arthropathy without central canal stenosis nor foraminal stenosis. The remaining lumbar disc contours are normal. No central canal stenosis and no foraminal stenosis within the lumbar spine. No pathologic enhancement. Previous work-up: 09/28/23, FLUOROSCOPIC LUMBAR PUNCTURE: Opening pressure was 8 cm H20 09/28/23 11:30 CSF Tube Number 4 CSF Volume 2.0 CSF Appearance CLEAR CSF Color COLORLESS CSF WBC 1 CSF RBC 0 CSF Lymphocytes 100 CSF Monocytes % 22 CSF Appearance (b) Clear, Colorless CSF Glucose 60 CSF Total Protein PEP 25 CSF Total Protein 23.7 CSF Prealbumin 5.9 CSF Albumin 59.2 CSF Qhpou-9-Ziohciec 5.1 CSF Bkuop-6-Imaglubo 6.5 CSF Beta Globulin 13.9 CSF Gamma Globulin 9.4 CSF PEP Interpret Pattern appears Normal CSF IgG Synthesis Rate -4.8 CSF Immunofixation Pattern appears Normal CSF Oligoclonal Bands Absent CSF/Serum IgG Index 1.9 CSF VDRL Nonreactive CSF Lyme IgG (Immblot) NO BANDS DETECTED CSF C.neoform/gat PCR Not Detected CSF CMV DNA (PCR) Not Detected CSF Enterovirus (PCR) Not Detected CSF E. coli K1 (PCR) Not Detected CSF H. influenzae (PCR) Not Detected CSF HSV I (PCR) Not Detected CSF HSV II (PCR) Not Detected CSF HHV 6 (PCR) Not Detected CSF L.monocytogenes PCR Not Detected CSF N. meningitidis PCR Not Detected CSF Parechovirus (PCR) Not Detected CSF S. agalactiae (PCR) Not Detected CSF S. pneumoniae (PCR) Not Detected CSF VZV (PCR) Not Detected 09/11/23 08:17 Total Creatine Kinase 114 C-React Prot High Sens 1.2 Vitamin B1 9 Pantothenic Acid 93 Vitamin B6 20.5 Vitamin B12 857 Folate 14.3 Rheumatoid Factor < 13.0 LUIS Screen POSITIVE A LUIS Titer 1:320 H LUIS Titer 2 TNP LUIS Titer 3 TNP LUIS Pattern A LUIS Pattern 2 TNP LUIS Pattern 3 TNP 05/20/23, MR/MR head/brain wo/w con IMPRESSION: A 6 mm focus of ill-defined hypoenhancement is seen in the left aspect of the pituitary gland which could represent a microadenoma or background heterogeneous enhancement of the pituitary parenchyma. No acute intracranial abnormality. 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 Alcohol intake: current Alcohol intake frequency: holidays/special occasions only Patient Tobacco Use Status: Former Tobacco user Tobacco use type: Cigarette Years Smoked: 5 years e-Cigarette/Vaping Use: Former Use service: No Current occupational status: employed 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 General: patient oriented x3 and deep tendon reflexes 2+ bilaterally Cranial nerves: Yes CN's II-XII intact bilaterally Cognition (Neuro): normal cognition Gait exam (Neuro): Normal gait present Motor exam (neuro): 5/5 motor strength present throughout Psych Appearance: grossly normal Mental Status: mental status grossly normal Speech and movement: Normal speech and movement present Affect: normal affect Attitude: cooperative Assessment & Plan Assessment & Plan (1) Chronic daily headache: Code(s): R51.9 - Headache, unspecified Category: Medical (2) Photophobia: Code(s): H53.149 - Visual discomfort, unspecified Category: Medical (3) Positional headache: Code(s): R51.0 - Headache with orthostatic component, not elsewhere classified Category: Medical (4) Glaucoma: Code(s): H40.9 - Unspecified glaucoma Category: Medical (5) Chronic migraine without aura: Code(s): G43.709 - Chronic migraine without aura, not intractable, without status migrainosus Category: Medical Qualifiers: Intractability: intractable (6) Pituitary cyst: Code(s): E23.6 - Other disorders of pituitary gland Category: Medical Plan Pt had positive impact from the blind EBP Reviewed [place] spine MRI w/wo no clear sites of potential CSF leak site identified. Thus pt again advised to undergo Ct [place]-spine myelogram to identify possible site of CSF leak. Will request local nuero-ophthalmology consult. Brain MRI w/wo to assess status of pituitary cyst. Continue Gabapentin 300mg qhs. Try to increase po caffeine further- may try milder caffeine teas. Continue increased fluids- including electrolyte replacement Rizatriptan. May continue Fioricet prn. Information previously shared on FL-41 light filtering glasses. Previous headache prevention trials- topiramate- ineffective, qulipta 30 and 60mg- ineffective, emgality ineffective. Orders: Orders CT cervical spine wo IV con Today R51.0 - Headache with orthostatic component, not elsewhere classified CT thoracic spine wo IV con Today R51.0 - Headache with orthostatic component, not elsewhere classified CT lumbar spine wo IV con Today R51.0 - Headache with orthostatic component, not elsewhere classified Referrals Ophthalmology Referral H40.9 - Unspecified glaucoma, H53.149 - Visual discomfort, unspecified, R51.9 - Headache, unspecified Coding Level of Care Code Est Pt Level 4 (06239) Diagnoses Chronic daily headache R51.9 Photophobia H53.149 Positional headache R51.0 Glaucoma H40.9 Chronic migraine without aura G43.709 Intractability: intractable Pituitary cyst E23.6
== END 2024-04-13 08:19 | disposition home or self-care (01) ==
PROVIDERS: PCP Internal Medicine; Visit Provider Nurse Practitioner Family
DX: R51.9 Headache, unspecified (principal); H53.149 Visual discomfort, unspecified; R51.0 Headache with orthostatic component, not elsewhere classified; H40.9 Unspecified glaucoma; G43.709 Chronic migraine without aura, not intractable, without status migrainosus; E23.6 Other disorders of pituitary gland
CPT/HCPCS: 99214

== ENCOUNTER → 2024-04-13 07:27 | Outpatient (BNVA) | payer OTHER, SELFPAY | PROVIDERS: PCP Internal Medicine; Visit Provider Nurse Practitioner Family | DX: R51.0 Headache with orthostatic component, not elsewhere classified (principal); H53.149 Visual discomfort, unspecified; G43.709 Chronic migraine without aura, not intractable, without status migrainosus; E23.6 Other disorders of pituitary gland; H40.9 Unspecified glaucoma | CPT/HCPCS: 99212 ==

== ENCOUNTER 2024-04-23 16:01 | Outpatient (REF) | payer OTHER, SELFPAY ==
--- NOTE | ~2024-04-23 | MR_ITS ---
EXAMINATION: MR BRAIN WITHOUT AND WITH CONTRAST CLINICAL INFORMATION: Microadenoma. Disorder of the pituitary gland. COMPARISON: Brain MRI from 05/20/2023. TECHNIQUE: MRI of the brain was obtained using pituitary protocol without and following the administration of 3 mL of Gadavist intravenous contrast. FINDINGS: No focal restricted diffusion is demonstrated to suggest acute or subacute cerebral ischemia. Scattered nonspecific periventricular and deep white matter T2 FLAIR hyperintensities. The ventricles are normal in morphology and size. No abnormal mass effect. No midline shift. Normal morphology and signal intensity of the pituitary gland on precontrast imaging. Normal posterior pituitary bright spot. Similar prior exam, there is a poorly defined faintly hypoenhancing 0.5 cm region in the left superior-posterior aspect of the pituitary gland. No additional hyperenhancing or hypoenhancing lesions demonstrated on post contrast imaging. The pituitary infundibulum remains minimally deviated to the right. The suprasellar cistern remains patent. No abnormal mass effect on the optic chiasm. Normal positioning of the cerebellar tonsils. Normal arterial and venous vascular flow voids are present. No additional abnormal contrast enhancement. Normal, homogeneous marrow signal. Mild mucosal thickening of the paranasal sinuses. No signal abnormalities within the mastoids. MR/MR head/brain wo/w con IMPRESSION: 1. Stable appearance of a 0.5 cm faintly hypoenhancing lesion in the left superior-posterior aspect of the pituitary gland. As previously noted, this could represent an underlying microadenoma in the appropriate clinical setting. Although incidental background heterogeneous enhancement of the pituitary parenchyma could have a similar appearance. 2. No acute intracranial abnormalities. No additional abnormal intracranial enhancement. 3. Mild nonspecific white matter changes. Electronically signed by: Donell Tse DO 06/21/2024 11:23 PM DANIEL
[2024-04-23] MEDS: gadobutroL 7.5 ML VIAL IVPUSH (16:59)
== END 2024-04-23 16:02 | disposition home or self-care (01) ==
LOC: HO.MRI 16:01
PROVIDERS: PCP Internal Medicine; Visit Provider Nurse Practitioner Family
DX: E23.6 Other disorders of pituitary gland (principal); H53.149 Visual discomfort, unspecified; H57.10 Ocular pain, unspecified eye
CPT/HCPCS: 70553; A9585

== ENCOUNTER 2024-05-05 15:34 | Outpatient (REF) | payer OTHER, SELFPAY ==
[2024-05-05 17:35] LABS: Appearance Urine Clear; Color Urine Dark Yellow; Glucose Urine UA Negative (Negative); Leukocyte Esterase Urine Small (1+) (Negative); Nitrite Urine Negative (Negative); PH 6.5 (5.0-9.0); Specific Gravity - Urine 1.015 (1.005-1.025); UMIC TRIGGER UA YES; Urine Blood Negative (Negative); Urine Ketones Negative (Negative); Urine Protein Negative (Neg-Trace)
[2024-05-05 17:40] LABS: Bacteria Urine 1+ (None Seen); Hyaline Casts Urine 0-2 /LPF (0-2); RBC Urine 0-2 /HPF (0-2); Squamous Epithelial Cell Urine 0-2 /HPF (0-2)
[2024-05-05 17:55] LABS: C Reactive Protein < 0.10 mg/dL (< or = 0.50)
[2024-05-05 17:57] LABS: Creatinine Urine 73.16 mg/dL; Total Protein Urine Random < 7 mg/dL (<12)
[2024-05-05 18:12] LABS: Erythrocyte Sedimentation Rate 7 MM/HR (0-20)
[2024-05-08 13:13] LABS: Thyroglobulin Antibodies <1 IU/mL (< or = 1); Thyroid Peroxidase Antibodies 4 IU/mL (<9)
[2024-05-08 14:43] LABS: Anti DNA DS Antibody 1 IU/mL; SM/Ribonucleoprotein Ab <1.0 NEG AI (<1.0 NEG); Smith Protein <1.0 NEG AI (<1.0 NEG)
[2024-05-08 19:04] LABS: Complement C3 141 mg/dL (83-193)
[2024-05-10 12:54] LABS: PTT (LAC) Screen 37 sec (<=40)
[2024-05-10 14:48] LABS: DNAds, Crithidia Antibody Negative (Negative)
[2024-05-10 15:08] LABS: Nicotinamide <20 ng/mL (see note); Vit B3 - Nicotinic Acid <20 ng/mL (see note)
[2024-05-10 21:14] LABS: Cardiolipin IgG Ab <2.0 GPL-U/mL; Cardiolipin IgM Ab 2.4 MPL-U/mL
[2024-05-11 05:44] LABS: Beta-2 Glycoprotein IgA <2.0 U/mL (<20.0); Beta-2 Glycoprotein IgG <2.0 U/mL (<20.0); Beta-2 Glycoprotein IgM 4.5 U/mL (<20.0)
[2024-05-12 14:43] LABS: Vitamin B2 (Riboflavin) >300.0 nmol/L (6.2-39.0)
== END 2024-05-05 15:35 | disposition home or self-care (01) ==
LOC: HO.LAB 15:34
PROVIDERS: Nurse Practitioner Family; PCP Internal Medicine; Visit Provider Student in an Organized Health Care Education/Training Program
DX: R76.8 Other specified abnormal immunological findings in serum (principal); R51.9 Headache, unspecified; H40.9 Unspecified glaucoma; R13.10 Dysphagia, unspecified; F41.9 Anxiety disorder, unspecified; F32.A Depression, unspecified; H57.10 Ocular pain, unspecified eye; H04.203 Unspecified epiphora, bilateral; E78.5 Hyperlipidemia, unspecified
CPT/HCPCS: 36415; 81001; 82570; 84156; 84252; 84591; 85597; 85598; 85613; 85652; 85730; 86140; 86146; 86147; 86160; 86225; 86235; 86255; 86376; 86800

== ENCOUNTER 2024-05-05 15:34 | Outpatient (AMB) | payer OTHER, SELFPAY ==
--- NOTE | 2024-05-05 15:37 | A.OFFVIS_ITS ---
Vital Signs 05/05/24 15:38 Height 5 ft 3 in Weight 143 lb 15.39 oz BMI 25.5 BP 118/74 Blood Pressure Location Lt brachial Position Sitting Pulse 69 Pulse Source Pulse Oximeter Pulse Oximetry (%) 99 Oxygen Delivery Method Room Air Intake Visit Reasons: +LUIS/CM Intake Note: Patient presents today for follow up of +LUIS. She was last seen in the office by Dr. Lopez on 03/22/2024. Allergies No Known Allergies Allergy (Verified 05/05/24 15:40) Medication List - Last Reconciled 05/05/24 by Brittanie Callejas MD albuterol sulfate 90 mcg/actuation 2 inhalations inhalation Q4H PRN albuterol sulfate 2.5 mg inhalation Q4-6H loargemodo-xtkefeifzacws-hxlv 50-325-40 mg 1 tab PO Q4H PRN 7 days cetirizine 10 mg PO DAILY PRN cyclobenzaprine 5 mg PO BEDTIME 30 days gabapentin 300 mg PO BEDTIME 30 days latanoprost 0.005% 1 drp ophthalmic (eye) DAILY magnesium oxide 400 mg PO BEDTIME multivitamin 1 tab PO DAILY ondansetron 4 mg PO Q8H PRN 30 days riboflavin (vitamin B2) 400 mg PO QAM 30 days rizatriptan take 1 tab at onset of headache; if no relief may repeat 1 tab after at least 2 hrs; max = 3 tabs/24 hr PO 30 days HPI Comments Details: Patient is a 38-year-old female with chronic migraines presents for 2nd opinion of positive LUIS. Patient states that for the past 3 years she has had a daily headache. Currently being worked up by Neurology. Who ran blood work and found a positive LUIS 1:320. She was referred to Rheumatology and was told that based on her history and examination no further workup was needed. She is here today for a 2nd opinion. Denies rashes, photosensitivity, alopecia, oral/nasal ulcers, sicca symptoms, lymphadenopathy, chest pain/shortness of breath, inflammatory type joint pain, foamy urine, lower extremity edema, muscle weakness, Raynaud's Also denies history of seizure, CVA, psychosis, history of kidney problems, history of cytopenias, history of VTE Has a mother with thyroid disease possibly Graves and a uncle with diabetes but she is unsure if it is type 1 or type 2 With respect to this headache she has had imaging including MRI and lumbar puncture which she states made the headache worse and the only thing that actually improve the headache for this a bit was when they did an epidural blood patch. 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 Alcohol intake: current Alcohol intake frequency: holidays/special occasions only Patient Tobacco Use Status: Former Tobacco user Tobacco use type: Cigarette Years Smoked: 5 years e-Cigarette/Vaping Use: Former Use service: No Current occupational status: employed 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 Cognitive needs: No Hearing needs: No Vision needs: Yes Female Reproductive History Menstrual Age of Menarche: 14 Review of Systems Const Details: Review of Systems Constitutional: Denies fever, chills, weight loss ENT: Denies vision changes, eye pain or eye redness, dental caries, dry mouth GI: Denies nausea, vomiting, diarrhea, abdominal pain, change in BM Pulm: Denies SOB, OMALLEY, hemoptysis, wheezing Cards: Denies chest pain, palpitations Skin: Denies Raynaud's, rash, nail changes, photosensitivity, 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 ?Gait normal. Constitutional Mucous membranes pink and moist patient alert and cooperative HEENT Conjunctiva and sclera clear. ?Pupils equal round and reactive to light. ?No lymphadenopathy. ?Normal dentition. Respiratory System Normal respiratory effort and able to speak in complete sentences. ?Clear to auscultation bilaterally. ?No crackles, rales, rhonchi, wheezes heard. Cardiac System Regular rate and rhythm. ?S1 and S2 heard no murmurs. ?Radial pulses intact bilaterally MSK No deformity, swelling, abnormalities noted to bilateral hands. ?No evidence of synovitis. ?Able to move all joints with full range of motion, without limitation. Hands:.??Normal pain-free range of motion without tenderness, swelling, increased warmth or erythema. Able to make a full fist and has a good layup worker strength. Wrists: Normal pain-free range of motion without tenderness, swelling, increased warmth or erythema. Elbows: Full range of motion without pain. No tenderness, weakness, swelling, increased warmth or erythema. Shoulders: Full range of motion without pain. No tenderness, weakness, swelling, increased warmth or erythema. Hips: Full range of motion without pain. Hip bursa:.??No tenderness. Knees:.???Normal pain-free range of motion without tenderness, swelling, inc reased warmth or erythema.?No effusion or crepitations Ankles:.??Normal pain-free range of motion without tenderness, swelling, increased warmth or erythema. Feet:.??Normal pain-free range of motion without tenderness, swelling, increased warmth or erythema. Tender points:??No tenderness to digital palpation at the occiput, trapezius, second rib, lateral epicondyle, knees, greater trochanter bilaterally, and left gluteal. Results Reviewed Results Reviewed: Laboratory Tests 09/11/23 10/07/23 08:17 07:56 Sodium 141 Potassium 4.2 Chloride 106 Carbon Dioxide 27 BUN 12 Creatinine 0.93 Estimated GFR > 60 Calcium 9.9 Total Bilirubin 0.5 AST 18 ALT 20 Alkaline Phosphatase 90 Total Protein 7.7 Albumin 4.4 Rheumatoid Factor < 13.0 LUIS Screen POSITIVE A LUIS Titer 1:320 H LUIS Pattern cytoplasmic/reticular pattern Assessment & Plan Assessment & Plan (1) Positive LUIS (antinuclear antibody): Code(s): R76.8 - Other specified abnormal immunological findings in serum Category: Medical Plan: #Positive LUIS The presence of antinuclear antibodies (LUIS) is mainly associated with connective tissue diseases (CTD). ?However, their presence is found in healthy people especially in women and patients >65. ?In healthy individuals, the frequency of LUIS has been shown to be 31.7% of individuals at 1:40 serum dilution, 13.3% at 1:80, 5.0% at 1:160, and 3.3% at 1:320 (2). Some drugs and xenobiotics are also important for the development of LUIS (hydralazine, hydrochlorothiazide, minocycline, terbinafine, ciprofloxacin, furosemide, omeprazole). Moreover, the deficiency of vitamin D in the body of patients correlates with occurrence of these antibodies (1). At this time there is low suspicion for a connective tissue disease. ? I agree with my colleagues assessment. However given that this is her 2nd time here in clinic I will send lupus workup. It is unlikely that an autoimmune disease such as lupus would be causing her headaches without any other general symptoms. 1. Rosalva?vilma Suresh, Raina Reed, Radha Moreno. Antinuclear antibodies in healthy people and non-rheumatic diseases - diagnostic and clinical implications. Reumatologia. 2018;56(4):243-248. doi: 10.5114/reum.2018.88882. Epub 2017Mar 11. PMID: [id number]; PMCID: [id number]. 2. Tanner EM, Niki TE, Ambreen JS, Dayron B, Tomasz R, Alvarado MJ, Reji T, Terri JA, Nolvia JR, Tian RG, Kalina RN, Blayne JS, Gabriel NF, Chantelle RJ, Terri Y, Jose A, Marvel MR, Won TANNER. Range of antinuclear antibodies in healthy individuals. Arthritis Rheum. 1996;40(9):1601-11. doi: 10.1002/art.[id number]. PMID: 2158797. Plan I spent 30 minutes reviewing the record and labs, seeing the patient, discussing the treatment plan and documenting in the medical record ? Orders: Orders Anti Extractable Nuclear Ag Today R76.8 - Other specified abnormal im munological findings in serum Complement C4 Today R76.8 - Other specified abnormal immunological findings in serum DNA Double Stranded-Crithidia Today R76.8 - Other specified abnormal immunological findings in serum Lupus Anticoagulant Panel Today R76.8 - Other specified abnormal immunological findings in serum Thyroglobulin Antibodies Today R76.8 - Other specified abnormal immunological findings in serum Thyroid Peroxidase Antibodies Today R76.8 - Other specified abnormal immunological findings in serum Anti DNA DS Antibody Today R76.8 - Other specified abnormal immunological findings in serum Complement C3 Today R76.8 - Other specified abnormal immunological findings in serum C Reactive Protein Today R76.8 - Other specified abnormal immunological findings in serum Erythrocyte Sedimentation Rate Today R76.8 - Other specified abnormal immunological findings in serum Protein Creatinine Ratio, Ur Today R76.8 - Other specified abnormal immunological findings in serum UA w Microscopic Today R76.8 - Other specified abnormal immunological findings in serum Beta-2 Glycoprotein Antibody Today R76.8 - Other specified abnormal immunological findings in serum Cardiolipin Antibodies Today R76.8 - Other specified abnormal immunological findings in serum Coding Level of Care Code New Pt Level 3 (18365) Diagnoses Positive LUIS (antinuclear antibody) R76.8
[2024-05-05 15:38] VITALS: BP 118/74; PULSE 69; O2SAT 99; BMI 25.5
== END 2024-05-05 16:16 | disposition home or self-care (01) ==
PROVIDERS: PCP Internal Medicine; Visit Provider Student in an Organized Health Care Education/Training Program
DX: R76.8 Other specified abnormal immunological findings in serum (principal)
CPT/HCPCS: 99203

== ENCOUNTER 2024-05-19 16:05 | Outpatient (AMB) | payer OTHER, SELFPAY ==
[2024-05-19 16:09] VITALS: BP 120/70; PULSE 88; O2SAT 99; BMI 25.4
--- NOTE | 2024-05-19 16:09 | A.OFFVIS_ITS ---
Vital Signs 05/19/24 16:09 Height 5 ft 3 in Weight 143 lb 8.335 oz BMI 25.4 BP 120/70 Blood Pressure Location Lt brachial Position Sitting Pulse 88 Pulse Source Pulse Oximeter Pulse Oximetry (%) 99 Intake Visit Reasons: follow up blood work/CM Intake Note: Patient presents today for +LUIS follow up with lab review. She was last seen in the office on 05/05/24. Allergies No Known Allergies Allergy (Verified 05/19/24 16:10) HPI Comments Details: Patient is a 38-year-old female with chronic migraines here for follow up of 2nd opinion of positive LUIS Interval History: Last seen 04/2024 for evaluation of positive LUIS on a background of daily headaches. At that time history was not convincing for an underlying autoimmune disease and examination was overall benign. Workup was sent which was all negative Today still with headaches No family history of autoimmune disease Still undergoing work up with neurology Rheumatologic History: Patient presented 04/2024 for evaluation of positive LUIS on a background of daily headache Patient stated that for the past 3 years she has had a daily headache. Currently being worked up by Neurology. Who ran blood work and found a positive LUIS 1:320. She was referred to Rheumatology and was told that based on her history and examination no further workup was needed. Denied rashes, photosensitivity, alopecia, oral/nasal ulcers, sicca symptoms, lymphadenopathy, chest pain/shortness of breath, inflammatory type joint pain, foamy urine, lower extremity edema, muscle weakness, Raynaud's Also denies history of seizure, CVA, psychosis, history of kidney problems, history of cytopenias, history of VTE With respect to this headache she has had imaging including MRI and lumbar puncture which she states made the headache worse and the only thing that actually improve the headache for this a bit was when they did an epidural blood patch. 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 Alcohol intake: current Alcohol intake frequency: holidays/special occasions only Patient Tobacco Use Status: Former Tobacco user Tobacco use type: Cigarette Years Smoked: 5 years e-Cigarette/Vaping Use: Former Use service: No Current occupational status: employed 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 Cognitive needs: No Hearing needs: No Vision needs: Yes Female Reproductive History Menstrual Age of Menarche: 14 Review of Systems Const Details: Review of Systems Constitutional: Denies fever, chills, weight loss ENT: Denies vision changes, eye pain or eye redness, dental caries, dry mouth GI: Denies nausea, vomiting, diarrhea, abdominal pain, change in BM Pulm: Denies SOB, OMALLEY, hemoptysis, wheezing Cards: Denies chest pain, palpitations Skin: Denies Raynaud's, rash, nail changes, photosensitivity, WEB USER EXPERIENCE STRATEGIST: +ve headaches and photophobia MSK: as per HPI All other systems reviewed and are unremarkable except noted above Physical Exam Vital Signs: BMI result Body Mass Index 25.4 Physical Examination CONSTITUITIONAL Patient alert and cooperative. Well appearing and in no apparent painful di stress HEENT Conjunctiva and sclera clear. ?Pupils equal round and reactive to light. ?No lymphadenopathy. ?Normal dentition. No oral or nasal ulcers noted. No evidence of discoid rash to the betty of ears CHEST/RESPIRATORY SYSTEM Normal respiratory effort and able to speak in complete sentences. ?Clear to auscultation bilaterally. ?No crackles, rales, rhonchi, wheezes heard. CARDIAC SYSTEM Regular rate and rhythm. ?S1 and S2 heard no murmurs. ?Radial pulses intact bilaterally MSK Hands: ?Good field naturalist strength bilaterally - 5/5. ?No deformities noted. ?No synovitis noted to the MCPs, PIPs or DIPs. ?No tenderness to palpation of these joints. Wrists: ?Full range of motion at the wrists without pain. ?No tenderness to palpation or synovitis noted to the wrists. Elbows: Full range of motion without pain. No tenderness, weakness, swelling, increased warmth or erythema. Shoulders: Full range of motion without pain. No tenderness, weakness, swelling, increased warmth or erythema. Hips: Full range of motion without pain. Hip bursa: No tenderness to palpation Knees: ?Full range of motion. ?No tenderness, swelling, increased warmth or erythema.?No effusion or crepitations Ankles: Full range of motion. ?No tenderness, swelling, increased warmth or erythema.? Feet: ?Negative squeeze test. ?No tenderness to palpation or swelling of the MTPs. Tender points:??No tenderness to palpation of the neck, shoulders, chest, elbows, hips, buttocks or knees. SKIN Skin intact without rashes. Results Reviewed Results Reviewed: Laboratory Tests 09/11/23 05/05/24 05/05/24 08:17 16:45 16:47 ESR 7 C-Reactive Protein < 0.10 Urine Color Dark Yellow Urine Appearance Clear Urine Protein Negative Urine Blood Negative U Random Total Protein < 7 Rheumatoid Factor < 13.0 LUIS Screen POSITIVE A LUIS Titer 1:320 H Sm ([place]) Antibody <1.0 NEG SM/ADMINISTRATIVE HEARING OFFICER IgG Antibody <1.0 NEG Double Strand DNA Ab 1 Anti-ds DNA (Crithidia) Negative Beta-2-GPI IgG Ab <2.0 Beta-2-GPI IgA Ab <2.0 Beta-2-GPI IgM Ab 4.5 Anti-Cardiolipin IgG Ab <2.0 Anti-Cardiolipin IgM Ab 2.4 Complement C3 141 Complement C4 24 Assessment & Plan Assessment & Plan (1) Positive LUIS (antinuclear antibody): Code(s): R76.8 - Other specified abnormal immunological findings in serum Category: Medical Plan: #Positive LUIS in the setting of headaches Patient with positive LUIS in the setting of headaches. MANDI panel as well as APLS antibodies negative and complement within normal limits. LUIS likely not contributing to her headaches. Still thinks she may have a component of idiopathic intracranial hypertension she is the right gender and age for it. Will check for hypervitaminosis A. Otherwise no need for further rheum work up Plan I spent 20 minutes reviewing the record and labs, seeing the patient, discussing the treatment plan and documenting in the medical record ? Orders: Orders Vitamin A Today R51.9 - Headache, unspecified Coding Level of Care Code Est Pt Level 3 (06574) Diagnoses Positive LUIS (antinuclear antibody) R76.8
== END 2024-05-19 16:24 | disposition home or self-care (01) ==
PROVIDERS: PCP Internal Medicine; Visit Provider Student in an Organized Health Care Education/Training Program
DX: R76.8 Other specified abnormal immunological findings in serum (principal)
CPT/HCPCS: 99213

== ENCOUNTER → 2024-05-19 16:05 | Outpatient (BNVA) | payer OTHER, SELFPAY | PROVIDERS: PCP Internal Medicine; Visit Provider Student in an Organized Health Care Education/Training Program | DX: R76.8 Other specified abnormal immunological findings in serum (principal) | CPT/HCPCS: 99212 ==

== ENCOUNTER 2024-05-24 09:29 | Day surgery (SDC) | payer OTHER, SELFPAY ==
--- NOTE | ~2024-05-24 | FL_ITS ---
FLUOROSCOPIC TOTAL SPINE MYELOGRAM Indication: Chronic headaches. Concern for idiopathic intracranial hypertension. Risks and benefits and possible complications were discussed with the patient and the consent form was signed. Patient was placed prone on the fluoroscopy table. The back was prepped and draped in routine sterile fashion. Betadine was used as a skin antiseptic. Utilizing fluoroscopic guidance, the L4-5 interlaminar space was accessed with a 22 gauge Bharat spinal needle and clear CSF fluid was observed from the needle hub. A total of 10 mL of Isovue-M 300 was then injected through the spinal needle and observed entering into the thecal sac. The needle was removed. The fluoroscopy table was then tilted to allow the intrathecal contrast to flow up to the cervical spine. The patient was then transported to CT for post myelographic imaging. There were no immediate complications. Total fluoroscopy time: 1 minute 50 seconds FL/FL myelogram spine cervical Impression: Successful fluoroscopic guided intrathecal instillation of Isovue-M 300. The patient will undergo subsequent CT post myelographic imaging. This procedure was performed by Leroy Magdaleno PA-C and supervised by Dr. Roberts. Electronically signed by: Ron Roberts MD 05/24/2024 04:19 PM [facility]
[2024-05-24 09:46] VITALS: BP 113/73; PULSE 78; RESP 15; TEMP 36.7; O2SAT 98; BMI 25.5
[2024-05-24 10:08] LABS: UPreg QC Valid YES; Urine Pregnancy NEGATIVE (NEGATIVE)
[2024-05-24 11:50] VITALS: BP 102/68; PULSE 63; RESP 14; TEMP 36.7; O2SAT 97
[2024-05-24 12:20] VITALS: BP 98/71; PULSE 77; RESP 16; O2SAT 97
[2024-05-24] MEDS: Acetaminophen 1,000 MG/100 ML PIGGYBACK 400 MG IV (12:41)
[2024-05-24 12:50] VITALS: BP 107/70; PULSE 65; RESP 16; TEMP 36.7; O2SAT 100
[2024-05-24 13:27] VITALS: BP 116/62; PULSE 76; RESP 16; TEMP 36.7; O2SAT 100
== END 2024-05-24 13:33 | disposition home or self-care (01) ==
PROVIDERS: Physician Assistant Surgical; Student in an Organized Health Care Education/Training Program; PCP Internal Medicine; Visit Provider Nurse Practitioner Family
DX: R51.0 Headache with orthostatic component, not elsewhere classified (principal); R76.8 Other specified abnormal immunological findings in serum; R51.9 Headache, unspecified; H40.9 Unspecified glaucoma; H53.149 Visual discomfort, unspecified; J45.909 Unspecified asthma, uncomplicated; F32.A Depression, unspecified; F41.9 Anxiety disorder, unspecified; Z79.899 Other long term (current) drug therapy; Z87.891 Personal history of nicotine dependence
CPT/HCPCS: 62302; 72125; 72128; 72131; 81025; J0131; J2003; Q9967

== ENCOUNTER → 2024-05-24 10:50 | Outpatient (BNV) | payer OTHER, SELFPAY | PROVIDERS: PCP Internal Medicine; Visit Provider Physician Assistant Surgical | DX: R51.9 Headache, unspecified (principal) | CPT/HCPCS: 62302 ==

== ENCOUNTER 2024-06-26 13:48 | Outpatient (AMB) | payer BC, SELFPAY ==
--- NOTE | 2024-06-26 13:49 | A.OFFVIS_ITS ---
Intake Visit Reasons: TV BC consult Allergies No Known Allergies Allergy (Verified 06/26/24 13:49) Medication List - Last Reconciled 06/26/24 by Carlota Gonzalez CNM albuterol sulfate 90 mcg/actuation 2 inhalations inhalation Q4H PRN albuterol sulfate 2.5 mg inhalation Q4-6H [id number] 50-325-40 mg 1 tab PO Q4H PRN 7 days cetirizine 10 mg PO DAILY PRN cyclobenzaprine 5 mg PO BEDTIME 30 days gabapentin 300 mg PO BEDTIME 30 days latanoprost 0.005% 1 drp ophthalmic (eye) DAILY levonorgestrel (Plan B One-Step) 1.5 mg PO ONCE magnesium oxide 400 mg PO BEDTIME multivitamin 1 tab PO DAILY ondansetron 4 mg PO Q8H PRN 30 days riboflavin (vitamin B2) 400 mg PO QAM 30 days rizatriptan take 1 tab at onset of headache; if no relief may repeat 1 tab after at least 2 hrs; max = 3 tabs/24 hr PO 30 days Is last menstrual period known: Yes Last menstrual period: 06/08/24 Do you need a note to return to daycare/school/sports/work: No HPI HPI TV BC consult: Details: Visit to discuss control patient would like to get back on control she had a condom that yesterday and she is also interested in getting screening for STIs. She was on combination low-dose control pills and she has had extensive history of migraines with auras and has working with a neurologist but it did not seen that the control pills had anything to do with the headaches. however she has been off for about a year she still does get headaches and she manages them when she gets them with medications per her neurologist. She has an appointment with a primary care provider in July and was anticipating a Pap smear with her because she has doing them. However she wants to get full STI testing sooner than that. She also would like to get back on a reliable control on a more regular basis. 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 Alcohol intake: current Alcohol intake frequency: holidays/special occasions only Patient Tobacco Use Status: Former Tobacco user Tobacco use type: Cigarette Years Smoked: 5 years e-Cigarette/Vaping Use: Former Use service: No Current occupational status: employed 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 Cognitive needs: No Hearing needs: No Vision needs: Yes Female Reproductive History Menstrual Age of Menarche: 14 Duration of menses: 3-5 days Date of last menstrual period: 06/08/24 control method: none Total pregnancies: 0 Date of last pap smear: 08/04/22 (negative) Telehealth Telehealth Telehealth Platform: Telephone Location of provider rendering services: practice address Location of patient: address on file Patient Identification confirmed using: Name, : Yes Telehealth method: voice only Patient verbally consented to treatment: Yes Patient verbally consented to billing insurance company: Yes Patient informed of any privacy concerns related to visit: Yes Minutes spent on Phone/Video with Pt.: 27 (3 cr/27 speaking with her on phone, 9 charting and ordering=39.) Assessment & Plan Assessment & Plan (1) control counseling: Code(s): Z30.09 - Encounter for other general counseling and advice on contraception Category: Medical (2) Counseling for initiation of control method: Code(s): Z30.09 - Encounter for other general counseling and advice on contraception Category: Medical (3) Encounter for screening examination for sexually transmitted disease: Code(s): Z11.3 - Encounter for screening for infections with a predominantly sexual mode of transmission Category: Medical Plan I reviewed her medical history with her eating very remote history of an abnormal Pap followed by lizzette 15 years. She is interested getting full screening for STIs I did discuss with her that while some screening test can be done with either swab or urine test in the lab, the gold standard for assuring screening of STIs would be swabs done with an exam of vaginal cervical secretions. Additionally blood work would be done in the lab. I offered to jose daniel rosales full screening in the lab that she can get done this week to ease her mind from her recent encounter, but then in 2-3 months when we see her to review how she is doing with her pills we can repeat testing then during an exam and she agrees with this plan meanwhile I have sent prescription for Plan just prior to this visit today and she is going to pick that up as well as progestin only control pills that I want her to start on with beginning of her next menses I did review the rationale for starting at beginning of her menses once she is sure that she is having real period. I reviewed that there can be some spotting sometimes after having taken plan B to be very sure that it is a real menses before starting control pills. Reviewed that I will not be prescribing control pills with estrogen because of her migraines. She also inquired about female condoms that she had seen add that it was available with prescription so even though when I put it in under the ordering section it comes up as [id number] we will see if she is able to get it with her insurance. We will see in 2-3 months to see how she is doing pills reviewed all of her questions today and she will also be paying attention to see if anything changes her headaches. Also reviewed ASCCP Pap guidelines she conversation with her primary care provider reviewed that an annual exam with a primary is more than just Pap smear even though she will be seen by me for follow-up of all these issues may or may not do a Pap smear options full exam and screening for STIs is possible and likely. Review pill taking in detail. Orders: Orders Hepatitis B Surface Antigen Today Z11.3 - Encounter for screening for infections with a predominantly sexual mode of transmission, Z30.09 - Encounter for other general counseling and advice on contraception Hepatitis C Antibody Today Z11.3 - Encounter for screening for infections with a predominantly sexual mode of transmission, Z30.09 - Encounter for other general counseling and advice on contraception HIV Ab/Ag Today Z11.3 - Encounter for screening for infections with a predominantly sexual mode of transmission, Z30.09 - Encounter for other general counseling and advice on contraception Syphilis Screen Today Z11.3 - Encounter for screening for infections with a predominantly sexual mode of transmission, Z30.09 - Encounter for other general counseling and advice on contraception CT NG by PCR Today Z11.3 - Encounter for screening for infections with a predominantly sexual mode of transmission, Z30.09 - Encounter for other general counseling and advice on contraception Bacterial Vaginosis Panel Today Z11.3 - Encounter for screening for infections with a predominantly sexual mode of transmission, Z30.09 - Encounter for other general counseling and advice on contraception Medications: New condoms - female As directed 12 ea 2RF norethindrone (contraceptive) 0.35 mg PO DAILY 84 tabs 3RF Coding Level of Care Code Tele Est Pt Level 3 (10497) Diagnoses control counseling Z30. Counseling for initiation of control method Z30. Encounter for screening examination for sexually transmitted disease Z11.3
--- OUTSIDE RECORDS SUMMARY | 2024-06-26 13:52 | XMS_ITS | Data Portability ---
Author Organization [facility], [address] Address [address] [place] [address] Care Team Providers Care Certified Personal Finance Counselor Name Role Phone NASIR LUCAS Primary Care Provider [phone] Assessment No assessment recorded. Plan of Treatment Reminders Order Date Submit Date Provider Last Modified By Organization Details Last Modified Time Details Appointments None recorded. Lab None recorded. Referral None recorded. Procedures None recorded. Surgeries None recorded. Imaging None recorded. Medication Orders albuterol sulfate 2.5 mg/3 mL (0.083 %) solution for nebulizatio n 2022 023 [email or web address] Not available 10:37:56 ipratropium bromide 0.02 % solution for inhalation 2022 023 [email or web address] Not available 3 10:37:57 ipratropium 20 mcg-albuter ol 100 mcg/actuati on mist for inhalation 2022 023 [id number], [address] [place], [place], [id number], 3 11:22:17 Medrol (Marcus) 4 mg tablets in a dose pack 2022 023 [id number], [address], [place], [phone], 3 11:22:18 Patient TargetsNo targets recorded. Patient Instructions Encounter Date Encounter Id Patient Instructions Last Modified By Organization Details Last Modified Time 09/19/2022 [id number] peak flow* [email or web address] Not available 09/09 10:59:14 Reason for Referral None Reported. Results Created Date Observation Date Name Description Value Unit Range Abnormal Flag Note LastModifiedBy Organization Detail LastModifiedTime 09/20/1909/19/2022 peak flow* Pre (L/min) 170 Not Available 2099 teresa [address] [place], [address], 09/19/2022 10:18:30 09/20/1909/19/2022 peak flow* Post (L/min) 280 Not Available [id number] [address] [place], [address], 09/19/2022 10:18:30 09/20/19 23 09/19/2022 peak flow* Pulse 83 Not Available 2099janis kelley [address] [place], [address], 09/19/2022 10:18:30 09/20/19 23 09/19/2022 peak flow* Oxygen Saturation 98 Not Available [id number] [address] [place], [address], 09/19/2022 10:18:30 Result Notes None recorded. Problems Name Problem SNOMED Code Status Onset Date Resolution Date Notes Provider Name and Address Organization Details Recorded Time Migraine 16380171 Active 023 MELIA benton, PA - [facility] 3 09:35:08 Asthma 063632544 Active 023 MELIA ESPINOSA null, PA - [facility] 3 09:37:18 Problem Notes None recorded. Procedures Surgical History Date Name Laterality Status Provider Name and Address Organization Details Recorded Time 3 Nebulizer Treatment completed SETH GONZALEZ PA - [facility] 09/19/2022 10:58:07 Imaging Results None recorded. Procedure Notes None recorded. Medical Equipment None Reported. Allergies No known drug allergies Medications Name Sig Start Date Stop Date Status Note LastModified by Organization Details LastModified Time latanoprost 0.005 % eye drops INSTILL 1 DROP IN BOTH EYES AT BEDTIME active Not Available Not Available No t Available albuterol sulfate 2.5 mg/3 mL (0.083 %) solution for nebulizatio n Inhale 3 mL every 4-6 hours by nebulizat ion route. 2022 active Not Available Not Available Not Avai lable sumatriptan 100 mg tablet TAKE 1 TABLET BY MOUTH AT ONSET OF HEADACHE IF NO RELIEF YOU MAY REPEAT 1 TABLET AFTER 2 HOURS MAX 2 TABS IN 24 HOURS active Not Available Not Available No t Available Medrol (Marcus) 4 mg tablets in a dose pack Use per dose pack instructi ons 2022 active Not Available Not Available Not Avai lable rizatriptan 10 mg tablet active Not Available Not Available Not Available topiramate 25 mg tablet TAKE 2 TABLETS BY MOUTH DAILY 09/19 completed Not Available Not Available Not Available amitriptyli ne 50 mg tablet TAKE 1 TABLET BY MOUTH AT BEDTIME active Not Available Not Available No t Available amitriptyli ne 25 mg tablet TAKE 1 TABLET BY MOUTH AT BEDTIME active Not Available Not Available No t Available magnesium oxide 400 mg (241.3 mg magnesium) tablet TAKE 1 TABLET BY MOUTH EVERY NIGHT AT BEDTIME active Not Available Not Available No t Available gabapentin 300 mg capsule TAKE 1 CAPSULE BY MOUTH AT BEDTIME active Not Available Not Available No t Available albuterol sulfate HFA 90 mcg/actuati on aerosol inhaler INHALE 2 PUFFS INTO THE LUNGS EVERY 4 HOURS NEEDED FOR SHORTNESS OF BREATH OR WHEEZING active Not Available Not Available No t Available ipratropium bromide 0.02 % solution for inhalation Inhale 2.5 mL by inhalatio n route. 2022 active Not Available Not Available Not Avai lable ipratropium 20 mcg-albuter ol 100 mcg/actuati on mist for inhalation Inhale 2 puffs 3 times a day by inhalatio n route for 7 days. 2022 active Not Available Not Available Not Avai lable riboflavin (vitamin B2) 400 mg tablet TAKE 1 TABLET BY MOUTH EVERY MORNING active Not Available Not Available No t Available Donna 0.25 mg-35 mcg tablet TAKE 1 TABLET BY MOUTH DAILY active Not Available Not Available No t Available Emgality Pen 120 mg/mL subcutaneou s pen injector ADMINISTE R 1 ML UNDER THE SKIN 1 TIME EVERY 30 DAYS active Not Available Not Available No t Available Nurte ODT 75 mg disintegrat ing tablet DISSOLVE 1 TABLET ON THE TONGUE EVERY OTHER DAY NEEDED FOR MIGRAINE HEADACHE active Not Available Not Available No t Available Vitals Date Recorded Body height Body mass index (BMI) Body weight Oxygen saturation Oxygen saturation in Arterial blood by Pulse oximetry Heart rate Respiratory rate Body temperature Systolic blood pressure Diastolic blood pressure Provider Name and Address Organization Details Last Updated DateTime 3 160.02 cm 25.7 kg/m2 81105.8 9 g 96 % 96 % 85 /min 16 /min 98.4 [degF] 112 mm[Hg] 76 mm[Hg] MELIA FRANCISCA PA - [facility] 3 09:38:36 Social History None recorded. Functional Status None recorded. Mental Status None recorded. Family History Nothing Reported. Medical History No medical history recorded. Gynecological History Statement/Question Response Date of LMP 09/16/2022 Obstetrics History GPAL:G 0 P 0 0 0 0 Immunizations Vaccine Type Date Status Note Provider Nam e and Address Organization Details Recorded Time meningococcal ACWY, unspecified formulation 0 completed MELIA FRANCISCA null, PA - [facility] 09/19/2022 09:33:49 Tdap 8 completed MELIA FRANCISCA null, PA - [facility] 09/19/2022 09:33:49 Tdap 2 completed MELIA FRANCISCA null, PA - [facility] 09/19/2022 09:33:49 HPV, quadrivalent 7 completed MELIA FRANCISCA null, PA - [facility] 09/19/2022 09:33:49 HPV, quadrivalent 7 completed MELIA FRANCISCA null, PA - [facility] 09/19/2022 09:33:49 HPV, quadrivalent 6 completed MELIA FRANCISCA null, PA - [facility] 09/19/2022 09:33:49 meningococcal MCV4P 2 completed MELIA FRANCISCA null, PA - [facility] 09/19/2022 09:33:49 Past Encounters Encounter ID Performer Location Encounter Start Date Encounter Closed Date Diagnosis/Indication Diagnosis SNOMED-CT Code Diagnosis ICD10 Code [id number] [facility] [place] [address] 05/11/2019 08:17:38 05/11/2019 08:47:52 [id number] [address] [place] [address] 12/30/2015 08:29:51 12/30/2015 09:21:49 [id number] [address] [place] [address] 07/22/2019 09:23:53 07/22/2019 10:13:44 [id number] [address] [place] [address] [place] [address] 05/21/2021 08:15:15 05/21/2021 09:55:13 [id number] [address] [facility] [place] [address] 05/29/2021 08:18:19 05/29/2021 10:17:14 [id number] [address] [place] [address] 11/06/2015 17:19:31 11/06/2015 18:59:38 [id number] [address] [facility] [place] [address] 05/27/2020 08:26:33 05/27/2020 09:43:36 [id number] [address] [place] [address] [place] [address] 03/07/2020 09:13:22 03/07/2020 09:30:29 [id number] [address] [facility] [place] [address] 04/19/2018 09:16:12 04/19/2018 10:38:06 [id number] [address] [place] [address] [place] [address] 04/30/2020 08:13:52 04/30/2020 09:45:15 [id number] SIAI QUICK MD [address] [address] [place] [address] 09/19/2022 08:24:18 09/19/2022 11:33:36 Exacerbation of intermittent asthma 568355863 J45.21 Health Concerns Section Related Observation LastModified by Organization Detai ls LastModified Time None Recorded Concern Status LastModified by Organization Details LastModified Time None Recorded Advance Directives Directive None Recorded Payers Encounter Date Sequence Insurance Name Policy Number Policy Smith Covered Member ID Smith Member ID Guarantor Name 04/30/2020 1 [facility] [id number] Sandhya Moreno Pearson [id number] Sanhdya Pearson 05/27/2020 1 [facility] [id number] Sandhya Moreno Pearson [id number] Sandhya Pearson 05/21/2021 1 [facility] [id number] Sandhya Moreno Pearson [id number] Sandhya Pearson 05/29/2021 1 [facility] [id number] Sandhya Moreno Pearson [id number] Sandhya Pearson 09/19/2022 1 [facility] [id number] Sandhya Moreno Pearson [id number] Sandhya Quinonesos Notes Date Note Type Note Provider Name and Address Organization Details Recorded Time 09/19/2022 text/html Known asthmatic with congestion and SOB x 2 months. She has been using Albuterol rescue inhaler daily(x 4 daily) for that time with no relief. Afebrile. Tired appearing. She had Covid in 2019. No HX of RSV. ISAI QUICK MD [address] [place], [address], PA - [facility] 09/19/2022 11:32:28 OBGyn Episode No OBEpisode recorded.
== END 2024-06-26 14:58 | disposition home or self-care (01) ==
LOC: HO.HWSM 13:48
PROVIDERS: PCP Internal Medicine; Visit Provider Advanced Practice Midwife
DX: Z30.09 Encounter for other general counseling and advice on contraception (principal)
CPT/HCPCS: 99442

== ENCOUNTER → 2024-06-26 13:48 | Outpatient (BNVA) | payer BC, SELFPAY | PROVIDERS: PCP Internal Medicine; Visit Provider Advanced Practice Midwife ==

== ENCOUNTER 2024-06-28 06:37 | Outpatient (REF) | payer BC, SELFPAY ==
--- OUTSIDE RECORDS SUMMARY | 2024-06-28 06:40 | XMS_ITS | Data Portability ---
Author Organization [facility], [address] Address [address] [place] [address] Care Team Providers Care License Examiner Name Role Phone NASIR LUCAS Primary Care Provider [phone] Assessment No assessment recorded. Plan of Treatment Reminders Order Date Submit Date Provider Last Modified By Organization Details Last Modified Time Details Appointments None recorded. Lab None recorded. Referral None recorded. Procedures None recorded. Surgeries None recorded. Imaging None recorded. Medication Orders albuterol sulfate 2.5 mg/3 mL (0.083 %) solution for nebulizatio n 2022 023 [email or web address] Not available 10:37:56 ipratropium bromide 0.02 % solution for inhalation 2022 023 [email or web address] Not available 3 10:37:57 ipratropium 20 mcg-albuter ol 100 mcg/actuati on mist for inhalation 2022 023 [facility] #61738, [address] [place], [place], [phone], 3 11:22:17 Medrol (Marcus) 4 mg tablets in a dose pack 2022 023 [facility], [address] [place], [place], [phone], 3 11:22:18 Patient TargetsNo targets recorded. Patient Instructions Encounter Date Encounter Id Patient Instructions Last Modified By Organization Details Last Modified Time 09/19/2022 [id number] peak flow* [email or web address] Not available 09/09 10:59:14 Reason for Referral None Reported. Results Created Date Observation Date Name Description Value Unit Range Abnormal Flag Note LastModifiedBy Organization Detail LastModifiedTime 09/20/1909/19/2022 peak flow* Pre (L/min) 170 Not Available 2099 [address]resa [address] [place], [address], 09/19/2022 10:18:30 09/20/1909/19/2022 peak flow* Post (L/min) 280 Not Available [id number] [address] [place], [address], 09/19/2022 10:18:30 09/20/19 23 09/19/2022 peak flow* Pulse 83 Not Available 2099janis kelley [address] [place], [address], 09/19/2022 10:18:30 09/20/19 23 09/19/2022 peak flow* Oxygen Saturation 98 Not Available [id number] [address] [place], [address], 09/19/2022 10:18:30 Result Notes None recorded. Problems Name Problem SNOMED Code Status Onset Date Resolution Date Notes Provider Name and Address Organization Details Recorded Time Migraine 06033114 Active 023 MELIA benton, PA - [facility] 3 09:35:08 Asthma 374164359 Active 023 MELIA ESPINOSA null, PA - [...] Updated DateTime 3 160.02 cm 25.7 kg/m2 98618.8 9 g 96 % 96 % 85 [...] Diagnosis/Indication Diagnosis SNOMED-CT Code Diagnosis ICD10 Code [id number] [facility] [address] [place] [address] 05/11/2019 08:17:38 05/11/2019 08:47:52 [id number] [address] [place] [address] 12/30/2015 08:29:51 12/30/2015 09:21:49 [id number] [address] [place] [address] 07/22/2019 09:23:53 07/22/2019 10:13:44 [id number] [address] [place] [address] [place] [address] 05/21/2021 08:15:15 05/21/2021 09:55:13 [id number] [address] [facility] [place] [address] 05/29/2021 08:18:19 05/29/2021 10:17:14 [id number] [address] [place] [address] 11/06/2015 17:19:31 11/06/2015 18:59:38 [id number] [address] [facility] [place] [address] 05/27/2020 08:26:33 05/27/2020 09:43:36 [id number] [address] [place] [address] [place] [address] 03/07/2020 09:13:22 03/07/2020 09:30:29 [id number] [address] [facility] [place] [address] 04/19/2018 09:16:12 04/19/2018 10:38:06 [id number] [address] [place] [address] [place] [address] 04/30/2020 08:13:52 04/30/2020 09:45:15 [id number] ISAI QUICK MD [address] [facility] [address] [place] [address] 09/19/2022 08:24:18 09/19/2022 11:33:36 Exacerbation of intermittent asthma 720386618 J45.21 Health Concerns Section Related Observation LastModified by Organization Detai ls LastModified Time None Recorded Concern Status LastModified by Organization Details LastModified Time None Recorded Advance Directives Directive None Recorded Payers Encounter Date Sequence Insurance Name Policy Number Policy Smith Covered Member ID Smith Member ID Guarantor Name 04/30/2020 1 [facility] [id number] Sandhya Moreno Pearson [id number] Sandhya Pearson 05/27/2020 1 [facility] [id number] Sandhya Moreno Pearson [id number] Sandhya Pearson 05/21/2021 1 [facility] [id number] Sandhya Moreno Pearson [id number] Sandhya Pearson 05/29/2021 1 [facility] [id number] Sandhya Moreno Pearson [id number] Sandhya Pearson 09/19/2022 1 [facility] [id number] Sandhya Moreno Pearson [id number] Sandhya Quinonesos Notes Date Note Type Note Provider Name and Address Organization Details Recorded Time 09/19/2022 text/html Known asthmatic with congestion and SOB x 2 months. She has been using Albuterol rescue inhaler daily(x 4 daily) for that time with no relief. Afebrile. Tired appearing. She had Covid in 2019. No HX of RSV. ISAI QUICK MD [address] [place], [address], [place] - [facility] 09/19/2022 11:32:28 OBGyn Episode No OBEpisode recorded.
[2024-06-28 07:51] LABS: Syphilis Screen Nonreactive (Nonreactive)
[2024-06-28 08:00] LABS: HBsAGNum1 0.32 S/CO (0.00-0.99); HIV AB/AG Nonreactive (Nonreactive); HIV Num 1 0.07 S/CO (0.00-0.99); Hepatitis B Surface Antigen Negative (Negative); ~HepC Num1 0.29 S/CO (0.00-0.79); ~Hepatitis C Antibody Nonreactive (Nonreactive)
[2024-06-29 06:00] LABS: CT PCR NOT DETECTED (Not Detect.); NG PCR NOT DETECTED (Not Detect.)
== END 2024-06-28 06:38 | disposition home or self-care (01) ==
LOC: HO.LAB 06:37
PROVIDERS: Student in an Organized Health Care Education/Training Program; PCP Internal Medicine; Visit Provider Advanced Practice Midwife
DX: Z11.3 Encounter for screening for infections with a predominantly sexual mode of transmission (principal); R51.9 Headache, unspecified
CPT/HCPCS: 36415; 84590; 86780; 86803; 87340; 87389; 87491; 87591

== ENCOUNTER → 2024-08-04 13:52 | Outpatient (BNVA) | payer OTHER, SELFPAY | PROVIDERS: PCP Internal Medicine; Visit Provider Internal Medicine | DX: Z00.00 Encounter for general adult medical examination without abnormal findings (principal); R51.9 Headache, unspecified; D35.2 Benign neoplasm of pituitary gland; Z80.3 Family history of malignant neoplasm of breast | CPT/HCPCS: 81025; 96127 ==

== ENCOUNTER 2024-08-14 13:32 | Outpatient (AMB) | payer BC, SELFPAY ==
--- NOTE | 2024-08-14 13:34 | A.SPINEOV_ITS ---
Intake Visit Reasons: neck pain & headached Intake Note: Ms. Pearson is here today c/o Neck pain & Headaches. Plaster Block Layer Required: No Allergies No Known Allergies Allergy (Verified 08/14/24 14:04) Assessment & Plan Assessment & Plan (1) Positional headache: Code(s): R51.0 - Headache with orthostatic component, not elsewhere classified Category: Medical Plan Dear Sabina, Thank you for referring Mr Pearson to our office today. She is a 38-year-old female who has had a headache for 3 years. It started when she was diagnosed with what sounds like some kind of acute glaucoma events with redness of our I when she was camping. She thought it was just her contact lens but ended up seeing an bankruptcy judge and her intra-ocular pressure was elevated. She was treated for that successfully with eyedrops, but developed a headache about same time as the redness started in her eye. She describes it as a bandlike sensation wrapping around her head, occasionally more on the left side than the right. She has been through any number of workups with extensive amounts of imaging. Nothing really seems to help out all that much with the exception of when she goes to bed at night she takes gabapentin as it is generally able to get through the night pretty well. When she gets up throughout the day though the pain is present there all the time. Although the pain goes away at night, if she is lying down during the day she will still have the headache. It is associated with nausea and photophobia. There are no visual scotomas, flashing lights, vision loss, double vision etc.. No tingling or numbness to the arms or legs. She has been on numerous rounds of migraine medications and other treatments. She had a lumbar puncture with normal CSF findings and normal opening pressure. Incidentally she did get a low pressure headache after that ended up needing a blood patch which did help the low pressure headache but did not make her daily typical headaches go away. She underwent CT myelogram to evaluate for possible CSF leak but this was negative. 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 She was sent for evaluation of that. PMH: Otherwise healthy Social hx: Does not smoke, drink use any recreational drugs Medications: Gabapentin and latanoprost Allergies: None Physical exam: Awake alert oriented no acute distress, visual bautista full, pupils expansive reactive to light, extraocular movements intact without nystagmus, strength and reflexes normal, gait normal. Imaging review: Cervical CT myelogram as well as thoracic and lumbar reviewed showing no evidence of CSF leak, oqru-hb-vjdbvcwy degeneration in that cervical spine with fvbc-ae-ejnnhgji stenosis at C5-6. No spinal cord compression seen. Impression: 38-year-old female who developed bandlike headache persistent for the last 3 years around the same time where she had some kind of acute glaucoma type event with elevation of her intra-ocular pressure. Despite the glaucoma being treated, the headaches never went away. She has been through numerous treatments, workups etc.. She did undergo lumbar puncture and her opening pressure was normal. She subsequently developed a low-pressure headache and was treated with a blood patch and that made the low-pressure headache go away but her normal daily headache did not. In the process of this workup she underwent a CT myelogram showing some disc degeneration at C5-6 but it is just mild to moderate degeneration, there is no significant compression of the spinal cord nor any restriction of spinal fluid flow around this area. It would not typically have anything to do with her headaches. Is nothing on the CT myelograms suggests that she has CSF leak. Brain MRI does not show any enhancement nor any slumping of the brainstem. The patient's case was reviewed with Dr. Diaz and the imaging reviewed, he agrees with the plan that there is nothing surgical here nothing to suggest there is a leak inside the central nervous system, and there is no indication for surgery on the mild central stenosis at C5-6.. Thank you for allowing us to care for your patient. The total time spent with this visit with this patient was 45 minutes reviewing history, physical exam, cervical CT imaging review, and implementation of treatment plan or further diagnostic testing Donnie Diaz MD,PhD [facility] Coding Level of Care Code New Pt Level 4 (99542) Diagnoses Positional headache R51.0
--- OUTSIDE RECORDS SUMMARY | 2024-08-14 14:52 | XMS_ITS | Data Portability ---
Author Organization [facility], [address] Address [address] [place] [address] Care Team Providers Care Classification Analyst Name Role Phone NASIR LUCAS Primary Care Provider [phone] Assessment No assessment recorded. Plan of Treatment Reminders Order Date Submit Date Provider Last Modified By Organization Details Last Modified Time Details Appointments None recorded. Lab None recorded. Referral None recorded. Procedures None recorded. Surgeries None recorded. Imaging None recorded. Medication Orders albuterol sulfate 2.5 mg/3 mL (0.083 %) solution for nebulizatio n 2022 023 [email or web address] Not available 10:37:56 ipratropium bromide 0.02 % solution for inhalation 2022 023 [email or web address] Not available 3 10:37:57 ipratropium 20 mcg-albuter ol 100 mcg/actuati on mist for inhalation 2022 023 [employer] #[id number], [address] [place], [place], [id number], 3 11:22:17 Medrol (Marcus) 4 mg tablets in a dose pack 2022 023 [facility], [address] [place], [place], [id number], 3 11:22:18 Patient TargetsNo targets recorded. Patient Instructions Encounter Date Encounter Id Patient Instructions Last Modified By Organization Details Last Modified Time 09/19/2022 [id number] peak flow* [email or web address] Not available 09/09 10:59:14 Reason for Referral None Reported. Results Created Date Observation Date Name Description Value Unit Range Abnormal Flag Note LastModifiedBy Organization Detail LastModifiedTime 09/20/1909/19/2022 peak flow* Pre (L/min) 170 Not Available 2099 teresa [address] [place], [address], 09/19/2022 10:18:30 09/20/1909/19/2022 peak flow* Post (L/min) 280 Not Available [id number] [address] [place], [address], 09/19/2022 10:18:30 09/20/19 23 09/19/2022 peak flow* Pulse 83 Not Available 2099janis kelley [address] [place], [address], 09/19/2022 10:18:30 09/20/19 23 09/19/2022 peak flow* Oxygen Saturation 98 Not Available [id number] [address] [place], [address], 09/19/2022 10:18:30 Result Notes None recorded. Problems Name Problem SNOMED Code Status Onset Date Resolution Date Notes Provider Name and Address Organization Details Recorded Time Migraine 29460238 Active 023 MELIA benton, [place] - [facility] 3 09:35:08 Asthma 769531587 Active 023 MELIA ESPINOSA null, PA - [...] height Body mass index (BMI) Body weight Pain severity - 0-10 verbal numeric rating [Score] - Reported Oxygen saturation Oxygen saturation in Arterial blood by Pulse oximetry Heart rate Respiratory rate Body temperature Systolic blood pressure Diastolic blood pressure Provider Name and Address Organization Details Last Updated DateTime 3 160.02 cm 25.7 kg/m2 26137.8 9 g 8 96 % 96 % 85 /min 16 [...] Diagnosis/Indication Diagnosis SNOMED-CT Code Diagnosis ICD10 Code Diagnosis Note [id number] [address] [facility] [place] [address] 05/11/2019 08:17:38 05/11/2019 08:47:52 [id number] [address] [facility] [place] [address] 12/30/2015 08:29:51 12/30/2015 09:21:49 [id number] [address] [facility] [place] [address] 07/22/2019 09:23:53 07/22/2019 10:13:44 [id number] [address] [facility] [place] [address] 05/21/2021 08:15:15 05/21/2021 09:55:13 [id number] [address] [facility] [place] [address] 05/29/2021 08:18:19 05/29/2021 10:17:14 [id number] [address] [facility] [place] [address] 11/06/2015 17:19:31 11/06/2015 18:59:38 [id number] [address] [facility] [place] [address] 05/27/2020 08:26:33 05/27/2020 09:43:36 [id number] [address] [facility] [place] [address] 03/07/2020 09:13:22 03/07/2020 09:30:29 [id number] [address] [facility] [place] [address] 04/19/2018 09:16:12 04/19/2018 10:38:06 [id number] [address] [place] [address] 04/30/2020 08:13:52 04/30/2020 09:45:15 [id number] ISAI QUICK MD [address] [place] [address] 09/19/2022 08:24:18 09/19/2022 11:33:36 Exacerbation of intermittent asthma 035640924 J45.21 How to use the Aerochambe rAttach the inhaler to the chamberSpr ay 2 puffs in to the chamberPut the chamber in your mouth with you lips closed around itTake 3 separate breaths from the chamber. Don't breath into the chamber. Health Concerns Section Related Observation LastModified by Organization Detai ls LastModified Time None Recorded Concern Status LastModified by Organization Details LastModified Time None Recorded Advance Directives Directive None Recorded Payers Encounter Date Sequence Insurance Name Policy Number Policy Smith Covered Member ID Smith Member ID Guarantor Name 04/30/2020 1 [facility] [id number] Sandhya Moreno Pearson [id number] Sandhyasadia Quinonesos 05/27/2020 1 [facility] [id number] Sandhya Moreno Pearson [id number] Sandhya Pearson 05/21/2021 1 [facility] [id number] Sandhya Moreno Pearson [id number] Sandhya Pearson 05/29/2021 1 [facility] [id number] Sandhya Moreno Pearson [id number] Sandhya Quinonesos 09/19/2022 1 [facility] [id number] Sandhya Quinonesos [id number] Sandhya Pearson Notes Date Note Type Note Provider Name and Address Organization Details Recorded Time 09/19/2022 text/html Known asthmatic with congestion and SOB x 2 months. She has been using Albuterol rescue inhaler daily(x 4 daily) for that time with no relief. Afebrile. Tired appearing. She had Covid in 2019. No HX of RSV. ISAI QUICK [facility] [address] [facility] [place], [address], [place] - [facility] 09/19/2022 11:32:28 OBGyn Episode No OBEpisode recorded.
== END 2024-08-14 15:48 | disposition home or self-care (01) ==
PROVIDERS: PCP Internal Medicine; Referring Provider Nurse Practitioner Family; Visit Provider Physician Assistant
DX: R51.0 Headache with orthostatic component, not elsewhere classified (principal)
CPT/HCPCS: 99204

== ENCOUNTER 2024-09-21 13:10 | Outpatient (AMB) | payer BC, SELFPAY ==
--- NOTE | 2024-09-21 13:11 | A.OFFVIS_ITS ---
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 Required: No Allergies No Known Allergies Allergy (Verified 09/21/24 13:11) Medication List - Last Reconciled 09/21/24 by Carlota Gonzalez CNM albuterol sulfate 2.5 mg inhalation Q4-6H albuterol sulfate 90 mcg/actuation 2 inhalations inhalation Q4H PRN abripijmgq-byzmrcefzfttb-kqhj 50-325-40 mg 1 tab PO Q4H PRN 7 days cetirizine 10 mg PO DAILY PRN condoms - female As directed cyclobenzaprine 5 mg PO BEDTIME 30 days gabapentin 300 mg PO BEDTIME 30 days latanoprost 0.005% 1 drp ophthalmic (eye) DAILY magnesium oxide 400 mg PO BEDTIME multivitamin 1 tab PO DAILY norethindrone (contraceptive) 0.35 mg PO DAILY ondansetron 4 mg PO Q8H PRN 30 days riboflavin (vitamin B2) 400 mg PO QAM 30 days rizatriptan take 1 tab at onset of headache; if no relief may repeat 1 tab after at least 2 hrs; max = 3 tabs/24 hr PO 30 days Is last menstrual period known: Yes Last menstrual period: 08/25/24 HPI HPI BC f/u: Details: This is an extensive telephone visit reviewing patient's control. She had wanted to start back on control pills at the last minute visit but her blood pressure was elevated at the 1st check though it was fine at the 2nd [facility]. She had been on combination low-dose control pills in the past for about a year plus and was doing well on that (previous to that she was on a higher dose estrogen pill and her neurologist had suggested that she switch to a lower dose so she had been switched a year prior (then she had stopped the control pills for about a year considering being open to but that is situation has changed and she wanted a more reliable method of control because she was now 38 years old and had her history of migraines and the 1 time elevated blood pressure at the visit June I elected to start her norethindrone only OCPs she had a period from 1222 for about 5 days that is when she started pills then she had a period on August 02 and then on August 25 but her periods have not so much bright red blood but more blackish brown spotting concern and sometimes she has much is in the between. She is wondering if she can go back on pills she was on before so we have had a lengthy discussion today about all the methods she has used and there was different side effects and different formulations and rationale for each choice that has been made in recent time for her. Also we discussed the options of the hormone free IUD and the hormone based IUD so decision made today to start back on pills she was on before levonorgestrel 1 mg/20 mcg ethinyl estradiol that she she did very well with and we will see her in 3 months and be check her blood pressure see how she is doing and read is discuss IUDs if she is interested in those.. 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 Alcohol intake: current Alcohol intake frequency: holidays/special occasions only Patient Tobacco Use Status: Former Tobacco user Tobacco use type: Cigarette Years Smoked: 5 years e-Cigarette/Vaping Use: Former Use service: No Current occupational status: employed 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 Cognitive needs: No Hearing needs: No Vision needs: Yes Female Reproductive History Menstrual Age of Menarche: 14 Duration of menses: 3-5 days Date of last menstrual period: 08/25/24 control method: pills Total pregnancies: 0 Telehealth Telehealth Telehealth Platform: Telephone Location of provider rendering services: practice address Location of patient: address on file Patient Identification confirmed using: Name, : Yes Telehealth method: voice only Patient verbally consented to treatment: Yes Patient verbally consented to billing insurance company: Yes Patient informed of any privacy concerns related to visit: Yes Minutes spent on Phone/Video with Pt.: 32 (12 cr/32 speaking/12 charting=46) Results Reviewed Results Reviewed: Name: Sandhya Pearson Age/Sex: 36/F Attending: Francia Schafer MD : 1985 Submitted by: Francia Schafer MD Copies to: MR #: [id number] Status: DEP REF Collected: 08/04/22 Location: [facility] Received: 08/04/22 Interpretation Satisfactory for evaluation. Negative for intraepithelial lesion or malignancy. HPV mRNA E6/E7: NOT DETECTED This assay detects E6/E7 viral messenger RNA (mRNA) from 14 high-risk HPV types (16, 18, 31, 33, 35, 39, 45, 51, 52, 56, 58, 59, 66, 68) HPV testing performed by [facility], [place]. See reference laboratory portion of the EMR for entire report. Clinical Information LMP: N/A Previous PAP test: N/A Material Received ThinPrep-Cervical Electronically Signed By: Anisha Day 08/14/22 1828 The Pap Test is a screening procedure with the inherent possibility of both false negative and false positive results. Results should be interpreted in the context of historic and current clinical findings. Reliability of the Pap Test is enhanced by performing the test on a regular repetitive basis. Patient: Sandhya Pearson Age/Sex: 36/F MR#: [id number] Page 1 of 1 Assessment & Plan Assessment & Plan (1) control counseling: Code(s): Z30.09 - Encounter for other general counseling and advice on contraception Category: Medical (2) Counseling for initiation of control method: Code(s): Z30.09 - Encounter for other general counseling and advice on contraception Category: Medical Plan This is an extensive telephone visit reviewing patient's control. She had wanted to start back on control pills at the last minute visit but her blood pressure was elevated at the 1st check though it was fine at the 2nd checkup. She had been on combination low-dose control pills in the past for about a year plus and was doing well on that (previous to that she was on a higher dose estrogen pill and her neurologist had suggested that she switch to a lower dose so she had been switched a year prior (then she had stopped the control pills for about a year considering being open to but that is situation has changed and she wanted a more reliable method of control because she was now 38 years old and had her history of migraines and the 1 time elevated blood pressure at the visit June I elected to start her n orethindrone only OCPs she had a period from 1222 for about 5 days that is when she started pills then she had a period on August 02 and then on August 25 but her periods have not so much bright red blood but more blackish brown spotting concern and sometimes she has much is in the between. She is wondering if she can go back on pills she was on before so we have had a lengthy discussion today about all the methods she has used and there was different side effects and different formulations and rationale for each choice that has been made in recent time for her. Also we discussed the options of the hormone free IUD and the hormone based IUD so decision made today to start back on pills she was on before levonorgestrel 1 mg/20 mcg ethinyl estradiol that she she did very well with and we will see her in 3 months and be check her blood pressure see how she is doing and read is discuss IUDs if she is interested in those.. Medications: New levonorgestrel-ethinyl estrad 0.1-20 mg-mcg 1 tab PO DAILY 84 tabs 4RF Discontinued norethindrone (contraceptive) Discontinued Reason: No Longer Medically Relevant 0.35 mg PO DAILY 84 tabs 3RF Coding Level of Care Code Tele Est Pt Level 3 (35083) Diagnoses control counseling Z30. Counseling for initiation of control method Z
--- OUTSIDE RECORDS SUMMARY | 2024-09-21 16:40 | XMS_ITS | Data Portability ---
Author Organization [facility], [address] Address [address] [place] [address] Care Team Providers Care Critical Care Rn Name Role Phone NASIR LUCAS Primary Care Provider [phone] Assessment No assessment recorded. Plan of Treatment Reminders Order Date Submit Date Provider Last Modified By Organization Details Last Modified Time Details Appointments None recorded. Lab None recorded. Referral None recorded. Procedures None recorded. Surgeries None recorded. Imaging None recorded. Medication Orders albuterol sulfate 2.5 mg/3 mL (0.083 %) solution for nebulizatio n 2022 023 [email or web address] Not available 10:37:56 ipratropium bromide 0.02 % solution for inhalation 2022 023 [email or web address] Not available 3 10:37:57 ipratropium 20 mcg-albuter ol 100 mcg/actuati on mist for inhalation 2022 023 [employer] #91002, [address] [place], [place], [id number], 3 11:22:17 Medrol (Marcus) 4 mg tablets in a dose pack 2022 023 [facility]80953, [address] [place], [place], [id number], 3 11:22:18 Patient TargetsNo targets recorded. Patient Instructions Encounter Date Encounter Id Patient Instructions Last Modified By Organization Details Last Modified Time 09/19/2022 [id number] peak flow* Not available 09/09 10:59:14 Reason for Referral None Reported. Results Created Date Observation Date Name Description Value Unit Range Abnormal Flag Note LastModifiedBy Organization Detail LastModifiedTime 09/20/1909/19/2022 peak flow* Pre (L/min) 170 Not Available 2099 [address] [place], [address], 09/19/2022 10:18:30 09/20/1909/19/2022 peak flow* Post (L/min) 280 Not Available [id number] [address] [place], [address], 09/19/2022 10:18:30 09/20/19 23 09/19/2022 peak flow* Pulse 83 Not Available 2099janis kelley [address] [place], [address], 09/19/2022 10:18:30 09/20/19 23 09/19/2022 peak flow* Oxygen Saturation 98 Not Available [id number] [address] [place], [address], 09/19/2022 10:18:30 Result Notes None recorded. Problems Name Problem SNOMED Code Status Onset Date Resolution Date Notes Provider Name and Address Organization Details Recorded Time Migraine 92724399 Active 023 MELIA benton, [place] - [facility] 3 09:35:08 Asthma 353978951 Active 023 MELIA ESPINOSA null, PA - [...] Updated DateTime 3 160.02 cm 25.7 kg/m2 30297.8 9 g 8 96 % 96 % [...] SNOMED-CT Code Diagnosis ICD10 Code Diagnosis Note [id number] [address] [facility] [place] [address] 05/11/2019 08:17:38 05/11/2019 08:47:52 [id number] [address] [facility] [place] [address] 12/30/2015 08:29:51 12/30/2015 09:21:49 [id number] [address] [facility] [place] [address] 07/22/2019 09:23:53 07/22/2019 10:13:44 [id number] [address] [facility] [place] [address] 05/21/2021 08:15:15 05/21/2021 09:55:13 [id number] [address] [facility] [place] [address] 05/29/2021 08:18:19 05/29/2021 10:17:14 [id number] [address] [facility] [place] [address] 11/06/2015 17:19:31 11/06/2015 18:59:38 [id number] [address] [facility] [place] [address] 05/27/2020 08:26:33 05/27/2020 09:43:36 [id number] [address] [facility] [place] [address] 03/07/2020 09:13:22 03/07/2020 09:30:29 [id number] [address] [facility] [place] [address] 04/19/2018 09:16:12 04/19/2018 10:38:06 [id number] [address] [facility] [place] [address] 04/30/2020 08:13:52 04/30/2020 09:45:15 [id number] ISAI QUICK MD [address] [facility] [place] [address] 09/19/2022 08:24:18 09/19/2022 11:33:36 Exacerbation of intermittent asthma 100509812 J45.21 How to use the Aerochambe rAttach [...] Name 04/30/2020 1 [facility] [id number] Sandhya Moreno Pearson [id number] Sadnhyasadia Quinonesos 05/27/2020 1 [facility] [id number] Sandhya Moreno Pearson [id number] Sandhya Pearson 05/21/2021 1 [facility] [id number] Sandhya Moreno Pearson [id number] Sandhya Pearson 05/29/2021 1 [facility] [id number] Sandhya Moreno Pearson [id number] Sandhya Quinonesos 09/19/2022 1 [facility] [id number] Sandhya Quinonesos [id number] Sandhya Pearson Notes Date Note Type Note Provider Name and Address Organization Details Recorded Time 09/19/2022 text/html Known asthmatic with congestion and SOB x 2 months. She has been using Albuterol rescue inhaler daily(x 4 daily) for that time with no relief. Afebrile. Tired appearing. She had Covid in 2019. No HX of RSV. ISAI QUICK MD [address] [facility] [place], [address], [place] - [facility] 09/19/2022 11:32:28 OBGyn Episode No OBEpisode recorded.
== END 2024-09-21 14:48 | disposition home or self-care (01) ==
LOC: HO.HWSM 13:10
PROVIDERS: PCP Internal Medicine; Visit Provider Advanced Practice Midwife
DX: Z30.09 Encounter for other general counseling and advice on contraception (principal)
CPT/HCPCS: 99213

== ENCOUNTER 2024-10-05 07:34 | Outpatient (AMB) | payer OTHER, SELFPAY ==
[2024-10-05 07:40] VITALS: BP 118/78; PULSE 91; O2SAT 100; BMI 26.3
--- NOTE | 2024-10-05 07:40 | A.OFFVIS_ITS ---
Vital Signs 10/05/24 07:40 Height 5 ft 3 in Weight 148 lb 6 oz BMI 26.3 BP 118/78 Blood Pressure Location Rt brachial Position Sitting Pulse 91 Pulse Source Pulse Oximeter Pulse Oximetry (%) 100 Oxygen Delivery Method Room Air Intake Visit Reasons: Follow Up 6mo Intake Note: Patient presents follow up migraine. CT's in chart. Pt refused Ophth referral. Allergies No Known Allergies Allergy (Verified 09/21/24 13:11) Medication List - Last Reconciled 10/05/24 by HILARY Castro albuterol sulfate 2.5 mg inhalation Q4-6H albuterol sulfate 90 mcg/actuation 2 inhalations inhalation Q4H PRN ixwscdpsht-ahigafxdsgxaa-ubsj 50-325-40 mg 1 tab PO Q4H PRN 7 days cetirizine 10 mg PO DAILY PRN condoms - female As directed cyclobenzaprine 5 mg PO BEDTIME 30 days gabapentin 300 mg PO BEDTIME 30 days latanoprost 0.005% 1 drp ophthalmic (eye) DAILY levonorgestrel-ethinyl estrad 0.1-20 mg-mcg 1 tab PO DAILY magnesium oxide 400 mg PO BEDTIME memantine (Namenda XR) 7 mg PO DAILY 14 days multivitamin 1 tab PO DAILY ondansetron 4 mg PO Q8H PRN 30 days riboflavin (vitamin B2) 400 mg PO QAM 30 days rizatriptan take 1 tab at onset of headache; if no relief may repeat 1 tab after at least 2 hrs; max = 3 tabs/24 hr PO 30 days ubrogepant (Ubrelvy) 50 - 100 mg (0.5 - 1 x 100 mg) PO ONCE PRN 30 days HPI Comments Details: 38-yr-old female presents for f/u visit of headache. Pt continues to have a daily constant headache and marked photophobia, some days more severe. States some days a headache and other days a migraine. The headache continues to be triggered by getting OOB and better when laying flat. Gabapentin helps with sleep, but not sure if it has any affect on her headaches. Taking increased fluids, and electrolyte replacement supplements does still help her headache. She is working again, now from home, which is still better in that she can control the noise and light level exposure. Taking 1-2 cups of coffee per day. Taking more caffeine helps the headache, but she is wary to take too much as too much coffee can make her jittery and make it difficult to fall asleep. She is not using butalbital regularly- as it makes her sleepy. She previously had [facility] [place]esthesiology consult- to discuss having repeat EBP. However they did not offer to repeat LP. She did have follow-up rheumatology consult for previous positive LUIS- additional lab work-up, including complement studies, were within normal limits. They did not feel that the positive LUIS indicated a current autoimmune process or was likely contributing to her headache burden. She did not have the local Neuro-Ophthalmology consult due to difficulties communicating with that office-and thus she would prefer to be referred elsewhere. Interval workup: 04/23/2024, MR/MR head/brain wo/w con IMPRESSION: 1. Stable appearance of a 0.5 cm faintly hypoenhancing lesion in the left superior-posterior aspect of the pituitary gland. As previously noted, this could represent an underlying microadenoma in the appropriate clinical setting. Although incidental background heterogeneous enhancement of the pituitary parenchyma could have a similar appearance. 2. No acute intracranial abnormalities. No additional abnormal intracranial enhancement. 3. Mild nonspecific white matter changes. 05/24/2024, Fluoroscopic total spine CT myelogram FL/FL myelogram spine cervical Impression: Successful fluoroscopic guided intrathecal instillation of Isovue-M 300. The patient will undergo subsequent CT post myelographic imaging. CT/CT cervical spine wo IV con, CT/CT thoracic spine wo IV con, CT/CT lumbar spine wo IV con IMPRESSION: 1. No evidence of CSF leak. 2. Central disc protrusions at C5-6 and C6-7 causing mild mass effect on the subjacent cord and resulting in moderate spinal canal stenosis at these levels. Previous work-up: 04/08/24, MR/MR cervical and thoracic spine wo/w con IMPRESSION: -No acute abnormality within the cervical and thoracic spine. -Mild multilevel degenerative changes predominantly in the cervical spine. No significant spinal canal stenosis or neural foraminal narrowing throughout the cervical or thoracic spine 04/06/24 MR/MR lumbar spine wo/w con IMPRESSION: At L4-L5, there is a small diffuse annular disc bulge and there is mild bilateral facet arthropathy without central canal stenosis nor foraminal stenosis. The remaining lumbar disc contours are normal. No central canal stenosis and no foraminal stenosis within the lumbar spine. No pathologic enhancement. Previous work-up: 09/28/23, FLUOROSCOPIC LUMBAR PUNCTURE: Opening pressure was 8 cm H20 09/28/23 11:30 CSF Tube Number 4 CSF Volume 2.0 CSF Appearance CLEAR CSF Color COLORLESS CSF WBC 1 CSF RBC 0 CSF Lymphocytes 100 CSF Monocytes % 22 CSF Appearance (b) Clear, Colorless CSF Glucose 60 CSF Total Protein PEP 25 CSF Total Protein 23.7 CSF Prealbumin 5.9 CSF Albumin 59.2 CSF Xrwig-1-Rxojyvgh 5.1 CSF Cqksz-0-Uekoasmc 6.5 CSF Beta Globulin 13.9 CSF Gamma Globulin 9.4 CSF PEP Interpret Pattern appears Normal CSF IgG Synthesis Rate -4.8 CSF Immunofixation Pattern appears Normal CSF Oligoclonal Bands Absent CSF/Serum IgG Index 1.9 CSF VDRL Nonreactive CSF Lyme IgG (Immblot) NO BANDS DETECTED CSF C.neoform/gat PCR Not Detected CSF CMV DNA (PCR) Not Detected CSF Enterovirus (PCR) Not Detected CSF E. coli K1 (PCR) Not Detected CSF H. influenzae (PCR) Not Detected CSF HSV I (PCR) Not Detected CSF HSV II (PCR) Not Detected CSF HHV 6 (PCR) Not Detected CSF L.monocytogenes PCR Not Detected CSF N. meningitidis PCR Not Detected CSF Parechovirus (PCR) Not Detected CSF S. agalactiae (PCR) Not Detected CSF S. pneumoniae (PCR) Not Detected CSF VZV (PCR) Not Detected 09/11/23 08:17 Total Creatine Kinase 114 C-React Prot High Sens 1.2 Vitamin B1 9 Pantothenic Acid 93 Vitamin B6 20.5 Vitamin B12 857 Folate 14.3 Rheumatoid Factor < 13.0 LUIS Screen POSITIVE A LUIS Titer 1:320 H LUIS Titer 2 TNP LUIS Titer 3 TNP LUIS Pattern A LUIS Pattern 2 TNP LUIS Pattern 3 TNP 05/20/23, MR/MR head/brain wo/w con IMPRESSION: A 6 mm focus of ill-defined hypoenhancement is seen in the left aspect of the pituitary gland which could represent a microadenoma or background heterogeneous enhancement of the pituitary parenchyma. No acute intracranial abnormality. 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 Alcohol intake: current Alcohol intake frequency: holidays/special occasions only Patient Tobacco Use Status: Former Tobacco user Tobacco use type: Cigarette Years Smoked: 5 years e-Cigarette/Vaping Use: Former Use service: No Current occupational status: employed 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 General: patient oriented x3 and deep tendon reflexes 2+ bilaterally Cranial nerves: Yes CN's II-XII intact bilaterally Cognition (Neuro): normal cognition Gait exam (Neuro): Normal gait present Motor exam (neuro): 5/5 motor strength present throughout Psych Appearance: grossly normal Mental Status: mental status grossly normal Speech and movement: Normal speech and movement present Affect: normal affect Attitude: cooperative Assessment & Plan Assessment & Plan (1) Positional headache: Code(s): R51.0 - Headache with orthostatic component, not elsewhere classified Category: Medical (2) Photophobia: Code(s): H53.149 - Visual discomfort, unspecified Category: Medical (3) Chronic daily headache: Code(s): R51.9 - Headache, unspecified Category: Medical (4) Glaucoma: Code(s): H40.9 - Unspecified glaucoma Category: Medical (5) Chronic migraine without aura: Code(s): G43.709 - Chronic migraine without aura, not intractable, without status migrainosus Category: Medical Qualifiers: Intractability: intractable (6) Pituitary cyst: Code(s): E23.6 - Other disorders of pituitary gland Category: Medical Plan Reviewed Ct [place]-spine myelogram- which Radiology did not feel showed any signs of CSF leaks. Reviewed interval brain MRI with and without contrast, showed stable 0.5 cm left superior-posterior pituitary gland hypointensity in mild nonspecific white matter changes. However, patient continues to have positional headache. Previous lumbar puncture showed opening pressure of 8 cm H2O. Her headaches continue to be responsive to fluids and caffeine. Interestingly, the 2 time she has had full relief from her constant headache symptoms were when she had a viral infection. We will refer to [facility] for nuero-ophthalmology consult. We will request tertiary neurology consult with Keren Jiménez MD at [facility] and [facility], as they have low pressure headache expertise and diagnostic modalities not available locally in [facility]. Continue Gabapentin 300mg qhs. Try to increase po caffeine further- may try milder caffeine teas. Continue increased fluids- including electrolyte replacement Rizatriptan. May continue Fioricet prn. Information previously shared on FL-41 light filtering glasses. Previous headache prevention trials- topiramate- ineffective, qulipta 30 and 60mg- ineffective, emgality ineffective. Medications: New memantine (Namenda XR) 7 mg PO DAILY 14 ea 0RF 14 days ubrogepant (Ubrelvy) take at onset of migraine, may repeat in 2hrs (may take w/ Ibuprofen) 50 - 100 mg (0.5 - 1 x 100 mg) PO ONCE PRN 16 tabs 3RF migraine headache 30 days Coding Level of Care Code Est Pt Level 4 (58706) Diagnoses Positional headache R51.0 Photophobia H53.149 Chronic daily headache R51.9 Glaucoma H40.9 Chronic migraine without aura G43.709 Intractability: intractable Pituitary cyst E23.6
== END 2024-10-05 08:33 | disposition home or self-care (01) ==
LOC: HO.HSMS 07:35
PROVIDERS: PCP Internal Medicine; Visit Provider Nurse Practitioner Family
DX: R51.0 Headache with orthostatic component, not elsewhere classified (principal); H53.149 Visual discomfort, unspecified; R51.9 Headache, unspecified; H40.9 Unspecified glaucoma; G43.709 Chronic migraine without aura, not intractable, without status migrainosus; E23.6 Other disorders of pituitary gland
CPT/HCPCS: 99214

== ENCOUNTER → 2024-10-05 07:34 | Outpatient (BNVA) | payer BC, SELFPAY | PROVIDERS: PCP Internal Medicine; Visit Provider Nurse Practitioner Family | DX: G43.709 Chronic migraine without aura, not intractable, without status migrainosus (principal); H53.149 Visual discomfort, unspecified; H40.9 Unspecified glaucoma; E23.6 Other disorders of pituitary gland | CPT/HCPCS: 99212 ==

== ENCOUNTER 2025-01-09 07:45 | Outpatient (AMB) | payer BC, SELFPAY ==
--- NOTE | 2025-01-09 07:47 | MHC.OFFVIS ---
Vital Signs 01/09/25 07:48 Height 5 ft 3 in Weight 145 lb BMI 25.7 Intake Visit Reasons: 3 mo follow up Intake Note: Patient presents 3 month follow up for migraines. Patient looking to drop off form to be filled out Allergies No Known Allergies Allergy (Verified 01/09/25 07:48) HPI Comments Details: 38-yr-old female presents for f/u visit of headache. 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 States some days a headache and other days a migraine. The headache continues to be triggered by getting OOB and better when laying flat. Gabapentin helps with sleep, but not sure if it has any affect on her headaches. Sometimes she wonders if she should take to the gabapentin, but her current quantity prevents that. Taking increased fluids, and electrolyte replacement supplements does still help her headache. She is working again, now from home, which is still better in that she can control the noise and light level exposure. She asked about having a when [employer] form signed for her vehicle. Trying to increase caffeine - but if she takes the caffeine too late, then it will keep her up at night. Taking more caffeine helps the headache, but she is wary to take too much as too much coffee can make her jittery and make it difficult to fall asleep. She has been using butalbital as needed- as it helps her to fall asleep when headaches worse. She notes that tab can dissolve in her mouth before she swallows it. She did try memantine but seem to cause hand twitching so she stopped it. Did not seem to help much with the headaches. She previously had [facility] pain management/Anesthesiology consult- to discuss having repeat EBP. However they did not offer to repeat LP. She previously had follow-up rheumatology consult for previous positive LUIS- additional lab work-up, including complement studies, were within normal limits. They did not feel that the positive LUIS indicated a current autoimmune process or was likely contributing to her headache burden. She has not heard from [facility] for r/t the neuro referral. Interval workup: 04/23/2024, MR/MR head/brain wo/w con IMPRESSION: 1. Stable appearance of a 0.5 cm faintly hypoenhancing lesion in the left superior-posterior aspect of the pituitary gland. As previously noted, this could represent an underlying microadenoma in the appropriate clinical setting. Although incidental background heterogeneous enhancement of the pituitary parenchyma could have a similar appearance. 2. No acute intracranial abnormalities. No additional abnormal intracranial enhancement. 3. Mild nonspecific white matter changes. 05/24/2024, Fluoroscopic total spine CT myelogram FL/FL myelogram spine cervical Impression: Successful fluoroscopic guided intrathecal instillation of Isovue-M 300. The patient will undergo subsequent CT post myelographic imaging. CT/CT cervical spine wo IV con, CT/CT thoracic spine wo IV con, CT/CT lumbar spine wo IV con IMPRESSION: 1. No evidence of CSF leak. 2. Central disc protrusions at C5-6 and C6-7 causing mild mass effect on the subjacent cord and resulting in moderate spinal canal stenosis at these levels. Previous work-up: 04/08/24, MR/MR cervical and thoracic spine wo/w con IMPRESSION: -No acute abnormality within the cervical and thoracic spine. -Mild multilevel degenerative changes predominantly in the cervical spine. No significant spinal canal stenosis or neural foraminal narrowing throughout the cervical or thoracic spine 04/06/24 MR/MR lumbar spine wo/w con IMPRESSION: At L4-L5, there is a small diffuse annular disc bulge and there is mild bilateral facet arthropathy without central canal stenosis nor foraminal stenosis. The remaining lumbar disc contours are normal. No central canal stenosis and no foraminal stenosis within the lumbar spine. No pathologic enhancement. Previous work-up: 09/28/23, FLUOROSCOPIC LUMBAR PUNCTURE: Opening pressure was 8 cm H20 09/28/23 11:30 CSF Tube Number 4 CSF Volume 2.0 CSF Appearance CLEAR CSF Color COLORLESS CSF WBC 1 CSF RBC 0 CSF Lymphocytes 100 CSF Monocytes % 22 CSF Appearance (b) Clear, Colorless CSF Glucose 60 CSF Total Protein PEP 25 CSF Total Protein 23.7 CSF Prealbumin 5.9 CSF Albumin 59.2 CSF Jqjtb-9-Eobrudfn 5.1 CSF Emqoh-6-Vzdndonv 6.5 CSF Beta Globulin 13.9 CSF Gamma Globulin 9.4 CSF PEP Interpret Pattern appears Normal CSF IgG Synthesis Rate -4.8 CSF Immunofixation Pattern appears Normal CSF Oligoclonal Bands Absent CSF/Serum IgG Index 1.9 CSF VDRL Nonreactive CSF Lyme IgG (Immblot) NO BANDS DETECTED CSF C.neoform/gat PCR Not Detected CSF CMV DNA (PCR) Not Detected CSF Enterovirus (PCR) Not Detected CSF E. coli K1 (PCR) Not Detected CSF H. influenzae (PCR) Not Detected CSF HSV I (PCR) Not Detected CSF HSV II (PCR) Not Detected CSF HHV 6 (PCR) Not Detected CSF L.monocytogenes PCR Not Detected CSF N. meningitidis PCR Not Detected CSF Parechovirus (PCR) Not Detected CSF S. agalactiae (PCR) Not Detected CSF S. pneumoniae (PCR) Not Detected CSF VZV (PCR) Not Detected 09/11/23 08:17 Total Creatine Kinase 114 C-React Prot High Sens 1.2 Vitamin B1 9 Pantothenic Acid 93 Vitamin B6 20.5 Vitamin B12 857 Folate 14.3 Rheumatoid Factor < 13.0 LUIS Screen POSITIVE A LUIS Titer 1:320 H LUIS Titer 2 TNP LUIS Titer 3 TNP LUIS Pattern A LUIS Pattern 2 TNP LUIS Pattern 3 TNP 05/20/23, MR/MR head/brain wo/w con IMPRESSION: A 6 mm focus of ill-defined hypoenhancement is seen in the left aspect of the pituitary gland which could represent a microadenoma or background heterogeneous enhancement of the pituitary parenchyma. No acute intracranial abnormality. 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 Alcohol intake: current Alcohol intake frequency: holidays/special occasions only Patient Tobacco Use Status: Former Tobacco user Tobacco use type: Cigarette Years Smoked: 5 years e-Cigarette/Vaping Use: Former Use service: No Current occupational status: employed 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 Cognitive needs: No Hearing needs: No Vision needs: Yes Female Reproductive History Menstrual Age of Menarche: 14 Physical Exam Vital Signs: BMI result Body Mass Index 25.7 Const General: cooperative and no acute distress Orientation/consciousness: patient oriented x3 Resp Effort & Inspection: normal respiratory effort and able to speak in complete sentences Neuro Other: Photophobic General: patient oriented x3 Cognition (Neuro): normal cognition Psych Appearance: grossly normal Mental Status: mental status grossly normal Speech and movement: Normal speech and movement present Affect: normal affect Attitude: cooperative Telehealth Telehealth Telehealth Platform: [facility] Location of provider rendering services: practice address Location of patient: address on file Patient Identification confirmed using: Name, : Yes Telehealth method: video Patient verbally consented to treatment: Yes Patient verbally consented to billing insurance company: Yes Patient informed of any privacy concerns related to visit: Yes Minutes spent on Phone/Video with Pt.: 30 Assessment & Plan Assessment & Plan (1) Positional headache: Code(s): R51.0 - Headache with orthostatic component, not elsewhere classified Category: Medical (2) Photophobia: Code(s): H53.149 - Visual discomfort, unspecified Category: Medical (3) Chronic daily headache: Code(s): R51.9 - Headache, unspecified Category: Medical (4) Glaucoma: Code(s): H40.9 - Unspecified glaucoma Category: Medical (5) Chronic migraine without aura: Code(s): G43.709 - Chronic migraine without aura, not intractable, without status migrainosus Category: Medical Qualifiers: Intractability: intractable (6) Pituitary cyst: Code(s): E23.6 - Other disorders of pituitary gland Category: Medical Plan Previous reviewed Ct [place]-spine myelogram- which Radiology did not feel showed any signs of CSF leaks. Previous reviewed brain MRI with and without contrast, showed stable 0.5 cm left superior-posterior pituitary gland hypointensity in mild nonspecific white matter changes. Patient continues to have positional headache. Previous lumbar puncture showed opening pressure of 8 cm H2O. Her headaches continue to be responsive to fluids and caffeine. Interestingly, the 2 time she has had full relief from her constant headache symptoms were when she had a viral infection. We will follow-up on referral to [facility] for nuero-ophthalmology consult. Patient as well as our staff will follow-up on referral to tertiary neurology consult with Keren Jiménez MD at [facility], as they have low pressure headache expertise and diagnostic modalities not available locally in [facility]. In the meantime, offered patient to undergo a follow-up lined epidural blood patch, however she hesitant to do this prior to being seen in [place]. Continue Gabapentin 300mg qhs, may take extra 300 mg cap as needed. Continue to increase po caffeine further- may try milder caffeine teas. Continue increased fluids- including electrolyte replacement Patient is not currently taking Rizatriptan. We will adjust Fioricet order to cap form-to see if this is more effective and better tolerated. Patient has order for Ubrelvy, she has not tried it yet, advise when she tries as she should wait at least 5 days after last time she has taken Fioricet. Information previously shared on FL-41 light filtering glasses. Previous headache prevention trials- amitriptyline ineffective topiramate- ineffective, qulipta 30 and 60mg- ineffective, emgality ineffective. Memantine ineffective and not tolerated-caused hand twitching. Future considerations: Sertraline Medications: New hxwohprozu-xelbidclvgqlm-wero 50-325-40 mg 1 cap PO Q4H PRN 20 caps 2RF pain 7 days R51.0 - Headache with orthostatic component, not elsewhere classified, R51.9 - Headache, unspecified Changed From gabapentin 300 mg PO BEDTIME 30 days 30 caps 3RF To gabapentin 300 - 600 mg (1 - 2 x 300 mg) PO BEDTIME 60 caps 6RF 30 days Discontinued jtfrpdszeg-yhjhmslbmotdw-bzyz 50-325-40 mg max 2 tabs per day or 6 tabs per week Discontinued Reason: Ancillary Entered New Order 1 tab PO Q4H 7 days PRN 20 tabs 2RF headache Coding Level of Care Code Tele Est Pt Level 4 (38091) Diagnoses Positional headache R51.0 Photophobia H53.149 Chronic daily headache R51.9 Glaucoma H40.9 Chronic migraine without aura G43.709 Intractability: intractable Pituitary cyst E23.6
[2025-01-09 07:48] VITALS: BMI 25.7
--- OUTSIDE RECORDS SUMMARY | 2025-01-09 07:48 | XMS_ITS | Data Portability ---
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 Plan of Treatment Reminders Order Date Submit Date Provider Last Modified By Organization Details Last Modified Time Details Appointments None recorded. Lab None recorded. Referral None recorded. Procedures None recorded. Surgeries None recorded. Imaging None recorded. Medication Orders albuterol sulfate 2.5 mg/3 mL (0.083 %) solution for nebulizatio n 2022 023 [email or web address] Not available 10:37:56 ipratropium bromide 0.02 % solution for inhalation 2022 023 [email or web address] Not available 3 10:37:57 ipratropium 20 mcg-albuter ol 100 mcg/actuati on mist for inhalation 2022 023 [facility], [address], [place], [id number], 3 11:22:17 Medrol (Marcus) 4 mg tablets in a dose pack 2022 023 [id number], [address], [place], [id number], 3 11:22:18 Patient TargetsNo targets recorded. Patient Instructions Encounter Date Encounter Id Patient Instructions Last Modified By Organization Details Last Modified Time 09/19/2022 [id number] peak flow* [email or web address] Not available 09/09 10:59:14 Reason for Referral None Reported. Results Created Date Observation Date Name Description Value Unit Range Abnormal Flag Note LastModifiedBy Organization Detail LastModifiedTime 09/20/1909/19/2022 peak flow* Pre (L/min) 170 Not Available [address] [place], [address], 09/19/2022 10:18:30 09/20/19 23 09/19/2022 peak flow* Post (L/min) 280 Not Available [id number] [address]teresa [address] [place], [address], 09/19/2022 10:18:30 09/20/19 23 09/19/2022 peak flow* Pulse 83 Not Available 2099janis kelley [address] [place], [address], 09/19/2022 10:18:30 09/20/19 23 09/19/2022 peak flow* Oxygen Saturation 98 Not Available [id number] [address] [place], [address], 09/19/2022 10:18:30 Result Notes None recorded. Problems Name Problem SNOMED Code Status Onset Date Resolution Date Notes Provider Name and Address Organization Details Recorded Time Migraine 19857840 Active 023 MELIA benton, PA - [facility] 3 09:35:08 Asthma 471419063 Active 023 MELIA ESPINOSA null, PA - [facility] 3 09:37:18 Problem Notes None recorded. Procedures Surgical History Date Name Laterality Status Provider Name and Address Organization Details Recorded Time Nebulizer Treatment completed SETH LIMALIZBETH PA - [facility] 09/19/2022 10:58:07 Imaging [...] Not Available No t Available Donna 0.25 mg-0.035 mg tablet TAKE 1 TABLET BY MOUTH DAILY active Not Available Not Available No t Available Emgality Pen 120 mg/mL subcutaneou s pen injector ADMINISTE R 1 ML UNDER THE SKIN 1 TIME EVERY 30 DAYS active Not Available Not Available No t Available Nurtec ODT 75 mg disintegrat ing tablet DISSOLVE [...] Updated DateTime 3 160.02 cm 25.7 kg/m2 29471.8 9 g 96 % 96 % 85 [...] SNOMED-CT Code Diagnosis ICD10 Code Diagnosis Note [id number] [address] [address] [address] [place] [address] 05/11/2019 08:17:38 05/11/2019 08:47:52 [id number] [address] [place] [address] 12/30/2015 08:29:51 12/30/2015 09:21:49 [id number] [address] [place] [address] 07/22/2019 09:23:53 07/22/2019 10:13:44 [id number] [address] [place] [address] 05/21/2021 08:15:15 05/21/2021 09:55:13 [id number] [address] [place] [address] 05/29/2021 08:18:19 05/29/2021 10:17:14 [id number] [address] [place] [address] 11/06/2015 17:19:31 11/06/2015 18:59:38 [id number] [address] [place] [address] 05/27/2020 08:26:33 05/27/2020 09:43:36 [id number] [address] [address] [address] [place] [address] 03/07/2020 09:13:22 03/07/2020 09:30:29 [id number] [address] [place] [address] 04/19/2018 09:16:12 04/19/2018 10:38:06 [id number] [address] [place] [address] 04/30/2020 08:13:52 04/30/2020 09:45:15 [id number] ISAI QUICK MD [address] [place] [address] 09/19/2022 08:24:18 09/19/2022 11:33:36 Exacerbation of intermittent asthma 894584394 J45.21 How to use the Aerochambe rAttach [...] Recorded Advance Directives Directive None Recorded Payers Insurance Date Sequence Insurance Name Policy Number Policy Smith Covered Member ID Smith Member ID Guarantor Name 11/02/[address] [place] [address] [id number] Sandhya Josh Pearson [id number] Sandhya Pearson Notes Date Note Type Note Provider Name and Address Organization Details Recorded Time 09/19/2022 text/html Known asthmatic with congestion and SOB x 2 months. She has been using Albuterol rescue inhaler daily(x 4 daily) for that time with no relief. Afebrile. Tired appearing. She had Covid in 2019. No HX of RSV. ISAI QUICK MD [facility] [place], [address], PA - [facility] 09/19/2022 11:32:28 OBGyn Episode No OBEpisode recorded.
== END 2025-01-09 10:13 | disposition home or self-care (01) ==
PROVIDERS: PCP Internal Medicine; Visit Provider Nurse Practitioner Family
DX: H53.149 Visual discomfort, unspecified (principal); H40.9 Unspecified glaucoma; G43.709 Chronic migraine without aura, not intractable, without status migrainosus; E23.6 Other disorders of pituitary gland; R51.0 Headache with orthostatic component, not elsewhere classified
CPT/HCPCS: 99214

== ENCOUNTER 2025-01-30 15:52 | Outpatient (REF) | payer BC, SELFPAY ==
[2025-01-31 20:11] LABS: Bacterial Vaginosis PCR NEGATIVE (Negative); Candida Group PCR NOT DETECTED (Not Detect); Candida glab krusei PCR NOT DETECTED (Not Detect); Trichomonas vaginalis PCR NOT DETECTED (Not Detect)
[2025-01-31 21:03] LABS: CT PCR NOT DETECTED (Not Detect.); NG PCR NOT DETECTED (Not Detect.)
== END 2025-01-30 15:53 | disposition home or self-care (01) ==
LOC: HO.LNP 15:52
PROVIDERS: PCP Internal Medicine; Visit Provider Advanced Practice Midwife
DX: Z01.419 Encounter for gynecological examination (general) (routine) without abnormal findings (principal); Z11.3 Encounter for screening for infections with a predominantly sexual mode of transmission; Z11.4 Encounter for screening for human immunodeficiency virus [HIV]; Z11.59 Encounter for screening for other viral diseases; Z20.2 Contact with and (suspected) exposure to infections with a predominantly sexual mode of transmission; Z79.899 Other long term (current) drug therapy; Z80.0 Family history of malignant neoplasm of digestive organs; Z80.3 Family history of malignant neoplasm of breast
CPT/HCPCS: 81515; 87491; 87591

== ENCOUNTER 2025-01-30 15:52 | Outpatient (AMB) | payer BC, SELFPAY ==
--- NOTE | 2025-01-30 15:59 | A.OFFVIS_ITS ---
Vital Signs 01/30/25 16:04 Height 5 ft 3 in Weight 157 lb BMI 27.8 BP 124/68 Blood Pressure Location Rt brachial Position Sitting Intake Visit Reasons: Follow up OCP/BCP/[facility] PT Intake Note: No complaints Communications Coordinator Required: No Information Interpreted: non-clinical & clinical Allergies No Known Allergies Allergy (Verified 01/30/25 15:59) Medication List - Last Reconciled 01/30/25 by Wendie Angelo LPN albuterol sulfate 2.5 mg inhalation Q4-6H albuterol sulfate 90 mcg/actuation 2 inhalations inhalation Q4H PRN euoyzhjhxs-vvtaapeozktns-nemp 50-325-40 mg 1 cap PO Q4H PRN 7 days cetirizine 10 mg PO DAILY PRN condoms - female As directed cyclobenzaprine 5 mg PO BEDTIME 30 days gabapentin 300 - 600 mg (1 - 2 x 300 mg) PO BEDTIME 30 days latanoprost 0.005% 1 drp ophthalmic (eye) DAILY levonorgestrel-ethinyl estrad 0.1-20 mg-mcg 1 tab PO DAILY magnesium oxide 400 mg PO BEDTIME memantine 21 mg PO DAILY 14 days multivitamin 1 tab PO DAILY ondansetron 4 mg PO Q8H PRN 30 days riboflavin (vitamin B2) 400 mg PO QAM 30 days rizatriptan take 1 tab at onset of headache; if no relief may repeat 1 tab after at least 2 hrs; max = 3 tabs/24 hr PO 30 days ubrogepant (Ubrelvy) 50 - 100 mg (0.5 - 1 x 100 mg) PO ONCE PRN 30 days Is last menstrual period known: Yes Last menstrual period: 01/15/25 Post menopausal: No Patient : No Followed by:: Wendie Angelo LPN Do you need a note to return to daycare/school/sports/work: No HPI Comments Details: Patient is a premenopausal woman presenting for annual examination. Doing well with no director of analytics concerns. On OCPs and wants a refill. She denies any contraindications to control such as: migraines with aura, history of DVT or pulmonary emboli, high blood pressure, liver disease, thrombolic disorders, Lupus, +LUIS, breast cancer, or smoking. Currently is sexually active. She denies vaginal itching or irritation. STI screening offered; she accepts. She tries to eat healthy and stays active with exercise. Family history of breast cancer-mother, family history of colon cancer-father. Last pap smear 2022, negative. 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 Alcohol intake: current Alcohol intake frequency: holidays/special occasions only Patient Tobacco Use Status: Former Tobacco user Tobacco use type: Cigarette Years Smoked: 5 years e-Cigarette/Vaping Use: Former Use service: No Current occupational status: employed 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 Cognitive needs: No Hearing needs: No Vision needs: Yes Female Reproductive History Menstrual Age of Menarche: 14 Date of last menstrual period: 01/15/25 Review of Systems Const All systems reviewed & are unremarkable except as noted in HPI and below Reports as per HPI Eyes Reports no additional complaints ENT Reports no additional complaints Card Reports no additional complaints Resp Reports no additional complaints GI Reports as per HPI and Reports no additional complaints Reports as per HPI Musc Reports no additional complaints Skin/Breast Reports as per HPI Neuro Reports no additional complaints Psych Reports no additional complaints Endo Reports no additional complaints Julian/Lymph Reports no additional complaints Aller/Immun Reports no additional complaints Physical Exam Vital Signs: Last Vital Signs BP 124/68 01/30/25 16:04 BMI result Body Mass Index 27.8 Const General: cooperative, healthy appearing, no acute distress, well developed and alert Orientation/consciousness: patient oriented x3 HEENT Head: Yes normal to inspection Eyes General: appearance normal, both eyes and all related structures Neck Neck: Yes normal visual inspection Thyroid: Thyroid normal Chest Chest palpation & inspection: normal inspection of the chest and other (no puckering, dimpling, peau de orange, retraction, discharge, masses) Breast/axilla inspection: normal inspection of the breasts Breast/axilla palpation: normal palpation of the breasts Resp Effort & Inspection: normal respiratory effort GI Inspection: Yes normal to inspection Palpation (GI): Soft to palpation Rectal Exam - Female: deferred General: Yes bladder normal to palpation External Female Exam: normal external appearance and normal appearance of the urethra Speculum Exam - Vagina: normal appearance of the vagina, normal palpation and normal vaginal discharge Speculum Exam - Cervix: normal appearance of the cervix and normal palpation Bimanual exam- vagina & uterus: normal bimanual exam, normal palpation, uterine size normal, bladder normal to palpation, normal palpation and non-tender Bimanual Exam- Adnexa, other: no masses Skin General skin exam: no rashes or lesions noted Rashes: no rashes Neuro General: patient oriented x3 Cognition (Neuro): normal cognition Extrem General: Yes normal to inspection Psych Attitude: cooperative Thought process: Normal thought process present Results AMB Test Urine AMB Test Urine Negative Last Edit by Em Downs LPN on 01/30/25 16:12 Results Reviewed Results Reviewed: Laboratory Last Values Tst Clinic Negative 01/30/25 16:11 Assessment & Plan Assessment & Plan (1) Encounter for well woman exam with routine gynecological exam: Code(s): Z01.419 - Encounter for gynecological examination (general) (routine) without abnormal findings Category: Medical Plan Discussed: Current recommendations for pap smears per ASCCP guidelines. Breast awareness and periodic breast exams. Maintain a healthy lifestyle including a well balanced diet and routine exercise. Use condoms for STI and prevention. control hormone use warnings: go to ER if and loss of vision, blindness, severe headache, chest pain or difficulty breathing, severe abdominal pain, or any pain or swelling in an extremity. Patient verbalizes understanding and agrees to the plan of care. She was given opportunity to ask questions and all questions were answered to the best of my ability. RTO in one year for annual director of analytics examination. This note is constructed using voice recognition software. While every effort has been made to ensure accuracy, liquor grinder mill operator errors may have been included. Orders: Orders Syphilis Screen 01/30/25 Z20.2 - Contact with and (suspected) exposure to infections with a predominantly sexual mode of transmission Hepatitis C Antibody Reflex 01/30/25 Z20.2 - Contact with and (suspected) exposure to infections with a predominantly sexual mode of transmission CT NG by PCR Vag/Cerv 01/31/25 Z00.00 - Encounter for general adult medical examination without abnormal findings, Z20.2 - Contact with and (suspected) exposure to infections with a predominantly sexual mode of transmission HIV Ab/Ag 01/30/25 Z20.2 - Contact with and (suspected) exposure to infections with a predominantly sexual mode of transmission Hepatitis B Core Antibody 01/30/25 Z20.2 - Contact with and (suspected) exposure to infections with a predominantly sexual mode of transmission Bacterial Vaginosis Panel 01/31/25 Z01.419 - Encounter for gynecological examination (general) (routine) without abnormal findings, Z20.2 - Contact with and (suspected) exposure to infections with a predominantly sexual mode of transmission Medications: Refilled levonorgestrel-ethinyl estrad 0.1-20 mg-mcg 1 tab PO DAILY 84 tabs 4RF Coding Level of Care Code Est Pt Prev Care 18-39y(58405) Diagnoses Encounter for well woman exam with routine gynecological exam Z01.419
[2025-01-30 16:04] VITALS: BP 124/68; BMI 27.8
--- OUTSIDE RECORDS SUMMARY | 2025-01-30 16:34 | XMS_ITS | Data Portability ---
Author Organization [facility], [address] Address [address] [place] [address] Care Team Providers Care Quality Control Lead Name Role Phone NASIR LUCAS Primary Care Provider Assessment No assessment recorded. Plan of Treatment Reminders Order Date Submit Date Provider Last Modified By Organization Details Last Modified Time Details Appointments None recorded. Lab None recorded. Referral None recorded. Procedures None recorded. Surgeries None recorded. Imaging None recorded. Medication Orders albuterol sulfate 2.5 mg/3 mL (0.083 %) solution for nebulizatio n 2022 023 Not available 10:37:56 ipratropium bromide 0.02 % solution for inhalation 2022 023 [email or web address] Not available 3 10:37:57 ipratropium 20 mcg-albuter ol 100 mcg/actuati on mist for inhalation 2022 023 [facility]47022, [address] [place], [place], [id number], 3 11:22:17 Medrol (Marcus) 4 mg tablets in a dose pack 2022 023 [facility]90608, [address] [place], [place], [phone], 3 11:22:18 Patient TargetsNo targets recorded. Patient Instructions Encounter Date Encounter Id Patient Instructions Last Modified By Organization Details Last Modified Time 09/19/2022 [id number] peak flow* [email or web address] Not available 09/09 10:59:14 Reason for Referral None Reported. Results Created Date Observation Date Name Description Value Unit Range Abnormal Flag Note LastModifiedBy Organization Detail LastModifiedTime 09/20/1909/19/2022 peak flow* Pre (L/min) 170 Not Available [address] [place], [address], 09/19/2022 10:18:30 09/20/19 23 09/19/2022 peak flow* Post (L/min) 280 Not Available [id number] [address] [place], [address], 09/19/2022 10:18:30 09/20/19 23 09/19/2022 peak flow* Pulse 83 Not Available 2099janis [address]elley [address] [place], [address], 09/19/2022 10:18:30 09/20/19 23 09/19/2022 peak flow* Oxygen Saturation 98 Not Available [id number] [address] [place], [address], 09/19/2022 10:18:30 Result Notes None recorded. Problems Name Problem SNOMED Code Status Onset Date Resolution Date Notes Provider Name and Address Organization Details Recorded Time Migraine 96290173 Active 023 MELIA benton, PA - [facility] 3 09:35:08 Asthma 187562120 Active 023 MELIA ESPINOSA null, PA - [...] Heart rate Respiratory rate Body temperature Systolic And Diastolic Provider Name and Address Organization Details Last Updated DateTime 3 160.02 cm 25.7 kg/m2 33984.8 9 g 96 % 96 % 85 /min 16 /min 98.4 [degF] 112/76 mm[Hg] MELIA FRANCISCA PA - [facility] [...] SNOMED-CT Code Diagnosis ICD10 Code Diagnosis Note [id number] [facility] [place] [address] 05/11/2019 08:17:38 05/11/2019 08:47:52 [id number] [address] [place] [address] 12/30/2015 08:29:51 12/30/2015 09:21:49 [id number] [facility] [address] [place] [address] 07/22/2019 09:23:53 07/22/2019 10:13:44 [id number] [facility] [address] [place] [address] 05/21/2021 08:15:15 05/21/2021 09:55:13 [id number] [facility] [address] [place] [address] 05/29/2021 08:18:19 05/29/2021 10:17:14 [id number] [facility] [address] [place] [address] 11/06/2015 17:19:31 11/06/2015 18:59:38 [id number] [facility] [address] [place] [address] 05/27/2020 08:26:33 05/27/2020 09:43:36 [id number] [facility] [place] [address] 03/07/2020 09:13:22 03/07/2020 09:30:29 [id number] [facility] [facility] [address] [place] [address] 04/19/2018 09:16:12 04/19/2018 10:38:06 [id number] [facility] [address] [place] [address] 04/30/2020 08:13:52 04/30/2020 09:45:15 [id number] ISAI QUICK MD [facility] [address] [place] [address] 09/19/2022 08:24:18 09/19/2022 11:33:36 Exacerbation of intermittent asthma 226292626 J45.21 How to use the Aerochambe rAttach [...] ID Smith Member ID Guarantor Name 11/02/[address] [place] [address] [id number] Sandhya Pearson [id number] Sandhya Pearson Notes Date Note Type Note Provider Name and Address Organization Details Recorded Time 09/19/2022 text/html Known asthmatic with congestion and SOB x 2 months. She has been using Albuterol rescue inhaler daily(x 4 daily) for that time with no relief. Afebrile. Tired appearing. She had Covid in 2019. No HX of RSV. ISAI QUICK [facility] [address] [place], [address], [place] - [facility] 09/19/2022 11:32:28 OBGyn Episode No OBEpisode recorded.
--- OUTSIDE RECORDS SUMMARY | 2025-01-30 16:34 | XMS_ITS | Clinical Summary ---
Author Organization [facility] Address [address] [place] [address] [place] [phone] Phone Care Team Providers Care Graduate Teaching Associate Name Role Phone Marilee Garcia NP Primary Care Provid er Social History Tobacco Use Types Packs/Day Years Used Date Smoking Tobacco: Never Assessed Comments Unknown Sex and Gender Information Value Date Recorded Sex Assigned at Not on file Legal Sex Female 6:48 PM EST Gender Identity Not on file Sexual Orientation Not on file Plan of Treatment Not on file Medical Devices Not on file Insurance [employer] [facility] [employer] [facility] Address: [address] [address] [employer] [facility] DIRECT Care Teams Graduate Teaching Associate Relationship Specialty Start Date End [place] [address] [email or web address] PCP - General 01/21/24 Additional Source Comments The information contained in this document represents components of the legal health record. It is not the complete legal health record.[facility]
== END 2025-01-30 16:22 | disposition home or self-care (01) ==
LOC: HO.HWS 15:52
PROVIDERS: PCP Internal Medicine; Visit Provider Advanced Practice Midwife
DX: Z01.419 Encounter for gynecological examination (general) (routine) without abnormal findings (principal)
CPT/HCPCS: 99395; 99459

== ENCOUNTER 2025-04-11 07:34 | Outpatient (AMB) | payer BC, SELFPAY ==
--- NOTE | 2025-04-11 07:35 | A.OFFVIS_ITS ---
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 Accompanied by: Self / Same As Patient Allergies No Known Allergies Allergy (Verified 04/11/25 07:37) Medication List - Last Reconciled 04/11/25 by HILARY Castro albuterol sulfate 2.5 mg inhalation Q4-6H albuterol sulfate 90 mcg/actuation 2 inhalations inhalation Q4H PRN ytdwsnihge-ewcnkivasakxc-yyos 50-325-40 mg 1 cap PO Q4H PRN 7 days cetirizine 10 mg PO DAILY PRN condoms - female As directed cyclobenzaprine 5 mg PO BEDTIME 30 days gabapentin 300 - 600 mg (1 - 2 x 300 mg) PO BEDTIME 30 days latanoprost 0.005% 1 drp ophthalmic (eye) DAILY levonorgestrel-ethinyl estrad 0.1-20 mg-mcg 1 tab PO DAILY magnesium oxide 400 mg PO BEDTIME memantine 21 mg PO DAILY 14 days multivitamin 1 tab PO DAILY ondansetron 4 mg PO Q8H PRN 30 days riboflavin (vitamin B2) 400 mg PO QAM 30 days rizatriptan take 1 tab at onset of headache; if no relief may repeat 1 tab after at least 2 hrs; max = 3 tabs/24 hr PO 30 days ubrogepant (Ubrelvy) 50 - 100 mg (0.5 - 1 x 100 mg) PO ONCE PRN 30 days HPI Comments Details: 39-yr-old female presents for tele-video follow-up visit for headache She has not heard from [facility] regarding the neuro referral for a suspected low- pressure headache evaluation for tertiary care. 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 Sometimes experiences headaches, and other days migraines. The headache continues to be triggered by getting OOB and is better when lying flat. She is not sleeping as well, may wake up, and have difficulty falling back asleep. She states she previously use melatonin with varying effect. In the past, she had tried a CBD gel cap which was very helpful. Unfortunately this was from specific supplement company, and they no longer cell this. Taking increased fluids and electrolyte replacement supplements still helps her headache. Drinking 2 cups of coffee in the morning and occasionally black tea in the afternoon can help reduce headaches, as long as it does not cause jitteriness. She is compliant with gabapentin. She is working again, now from home, which continues to be helpful as she can control the noise and light level exposure. Previous consults: * [facility] pain management/Anesthesiology consult- to discuss having a repeat EBP. However, they did not offer to repeat the LP. * Rheumatology consult for previous positive LUIS- additional lab work-up, including complement studies, was within normal limits. They did not feel that the positive LUIS indicated a current autoimmune process or was likely contributing to her headache burden. Previous work-up: 04/23/2024, MR/MR head/brain wo/w con IMPRESSION: 1. Stable appearance of a 0.5 cm faintly hypoenhancing lesion in the left superior-posterior aspect of the pituitary gland. As previously noted, this could represent an underlying microadenoma in the appropriate clinical setting. Although incidental background heterogeneous enhancement of the pituitary parenchyma could have a similar appearance. 2. No acute intracranial abnormalities. No additional abnormal intracranial enhancement. 3. Mild nonspecific white matter changes. 05/24/2024, Fluoroscopic total spine CT myelogram FL/FL myelogram spine cervical Impression: Successful fluoroscopic guided intrathecal instillation of Isovue-M 300. The patient will undergo subsequent CT post myelographic imaging. CT/CT cervical spine wo IV con, CT/CT thoracic spine wo IV con, CT/CT lumbar spine wo IV con IMPRESSION: 1. No evidence of CSF leak. 2. Central disc protrusions at C5-6 and C6-7 causing mild mass effect on the subjacent cord and resulting in moderate spinal canal stenosis at these levels. 04/08/24, MR/MR cervical and thoracic spine wo/w con IMPRESSION: -No acute abnormality within the cervical and thoracic spine. -Mild multilevel degenerative changes predominantly in the cervical spine. No significant spinal canal stenosis or neural foraminal narrowing throughout the cervical or thoracic spine 04/06/24 MR/MR lumbar spine wo/w con IMPRESSION: At L4-L5, there is a small diffuse annular disc bulge and there is mild bilateral facet arthropathy without central canal stenosis nor foraminal stenosis. The remaining lumbar disc contours are normal. No central canal stenosis and no foraminal stenosis within the lumbar spine. No pathologic enhancement. Previous work-up: 09/28/23, FLUOROSCOPIC LUMBAR PUNCTURE: Opening pressure was 8 cm H20 09/28/23 11:30 CSF Tube Number 4 CSF Volume 2.0 CSF Appearance CLEAR CSF Color COLORLESS CSF WBC 1 CSF RBC 0 CSF Lymphocytes 100 CSF Monocytes % 22 CSF Appearance (b) Clear, Colorless CSF Glucose 60 CSF Total Protein PEP 25 CSF Total Protein 23.7 CSF Prealbumin 5.9 CSF Albumin 59.2 CSF Nymmm-8-Oygdeout 5.1 CSF Cemap-5-Qxmpuwto 6.5 CSF Beta Globulin 13.9 CSF Gamma Globulin 9.4 CSF PEP Interpret Pattern appears Normal CSF IgG Synthesis Rate -4.8 CSF Immunofixation Pattern appears Normal CSF Oligoclonal Bands Absent CSF/Serum IgG Index 1.9 CSF VDRL Nonreactive CSF Lyme IgG (Immblot) NO BANDS DETECTED CSF C.neoform/gat PCR Not Detected CSF CMV DNA (PCR) Not Detected CSF Enterovirus (PCR) Not Detected CSF E. coli K1 (PCR) Not Detected CSF H. influenzae (PCR) Not Detected CSF HSV I (PCR) Not Detected CSF HSV II (PCR) Not Detected CSF HHV 6 (PCR) Not Detected CSF L.monocytogenes PCR Not Detected CSF N. meningitidis PCR Not Detected CSF Parechovirus (PCR) Not Detected CSF S. agalactiae (PCR) Not Detected CSF S. pneumoniae (PCR) Not Detected CSF VZV (PCR) Not Detected 09/11/23 08:17 Total Creatine Kinase 114 C-React Prot High Sens 1.2 Vitamin B1 9 Pantothenic Acid 93 Vitamin B6 20.5 Vitamin B12 857 Folate 14.3 Rheumatoid Factor < 13.0 LUIS Screen POSITIVE A LUIS Titer 1:320 H LUIS Titer 2 TNP LUIS Titer 3 TNP LUIS Pattern A LUIS Pattern 2 TNP LUIS Pattern 3 TNP 11/9/23, MR/MR head/brain wo/w con IMPRESSION: A 6 mm focus of ill-defined hypoenhancement is seen in the left aspect of the pituitary gland which could represent a microadenoma or background heterogeneous enhancement of the pituitary parenchyma. No acute intracranial abnormality. 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 Alcohol intake: current Alcohol intake frequency: holidays/special occasions only Patient Tobacco Use Status: Former Tobacco user Tobacco use type: Cigarette Years Smoked: 5 years e-Cigarette/Vaping Use: Former Use service: No Current occupational status: employed 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 Cognitive needs: No Hearing needs: No Vision needs: Yes Female Reproductive History Menstrual Age of Menarche: 14 Physical Exam Const General: cooperative and no acute distress Orientation/consciousness: patient oriented x3 Resp Effort & Inspection: normal respiratory effort and able to speak in complete sentences Neuro Other: Photophobic General: patient oriented x3 Cognition (Neuro): normal cognition Psych Appearance: grossly normal Mental Status: mental status grossly normal Speech and movement: Normal speech and movement present Affect: normal affect Attitude: cooperative Telehealth Telehealth Telehealth Platform: [facility] Location of provider rendering services: practice address Location of patient: address on file Patient Identification confirmed using: Name, : Yes Telehealth method: video Patient verbally consented to treatment: Yes Patient verbally consented to billing insurance company: Yes Patient informed of any privacy concerns related to visit: Yes Minutes spent on Phone/Video with Pt.: 22 Assessment & Plan Assessment & Plan (1) Positional headache: Code(s): R51.0 - Headache with orthostatic component, not elsewhere classified Category: Medical (2) Photophobia: Code(s): H53.149 - Visual discomfort, unspecified Category: Medical (3) Chronic daily headache: Code(s): R51.9 - Headache, unspecified Category: Medical (4) Glaucoma: Code(s): H40.9 - Unspecified glaucoma Category: Medical Qualifiers: Glaucoma type: unspecified (5) Chronic migraine without aura: Code(s): G43.709 - Chronic migraine without aura, not intractable, without status migrainosus Category: Medical Qualifiers: Intractability: intractable Plan Previously reviewed Ct [place]-spine myelogram- which Radiology did not feel showed any signs of CSF leaks. Previously reviewed brain MRI with and without contrast, showed stable 0.5 cm left superior-posterior pituitary gland hypointensity in mild nonspecific white matter changes. Patient continues to have positional headache. Previous lumbar puncture showed opening pressure of 8 cm H2O. Her headaches continue to be responsive to fluids and caffeine. Interestingly, the 2 time she has had full relief from her constant headache symptoms were when she had a viral infection. We had previously requested patient have a local Neuro-Ophthalmology consult, however per the office patient had declined the appointment. We will follow-up on referral to tertiary neurology consult with Keren Jiménez MD at [facility], as they have low pressure headache expertise and diagnostic modalities not available locally in [facility]. We will follow-up on referral to [facility] for nuero-ophthalmology consult. In the meantime, offered patient to undergo a follow-up lined epidural blood patch, however she hesitant to do this prior to being seen in [place]. Continue to increase oral caffeine further- may try milder caffeine teas. Continue increased fluids- including electrolyte replacement Continue Gabapentin 300mg qhs, may take extra 300 mg cap as needed. Trial mirtazapine 7.5 mg q.h.s., may help with sleep and headache. May retry OTC melatonin 3-5 mg daily at [place]. Discontinue Fioricet Trial Ubrogepant (Ubrelvy) 100mg tab, 1/2 - 1 tab (50-100mg) at onset of headache, may repeat in 2 hours. Max of 2 tabs (200mg) per 24 hours. * May adjunct with OTC Tylenol 650mg q 4 hours, Ibuprofen 600mg q 6 hours, or Naproxen 440mg q 12 hrs prn. * Do not take w/ Butalbital (Fioricet or Fiorinal). * Potential adverse effects, include but are not limited to fatigue, nausea, dry mouth, constipation Information previously shared on FL-41 light filtering glasses. Previous headache prevention trials- amitriptyline ineffective topiramate- ineffective, qulipta 30 and 60mg- ineffective, emgality ineffective. Memantine ineffective and not tolerated-caused hand twitching. Previous headache acute medication trials: Rizatriptan not fully effective. Fioricet tab helped with sleep, but she did not tolerate the taste. Future considerations: Sertraline Medications: New mirtazapine 7.5 mg PO BEDTIME 30 tabs 3RF 30 days Coding Level of Care Code Tele Est Pt Level 4 (63763) Diagnoses Positional headache R51.0 Photophobia H53.149 Chronic daily headache R51.9 Glaucoma H40.9 Glaucoma type: unspecified Chronic migraine without aura G43.709 Intractability: intractable
--- OUTSIDE RECORDS SUMMARY | 2025-04-11 07:36 | XMS_ITS | Clinical Summary ---
Author Organization [facility] Address [address] [place] [address] [place] [phone] Phone Care Team Providers Care Revenue Cycle Consultant Name Role Phone Marilee Garcia NP Primary [...] file Medical Devices Not on file Insurance ooma [facility] Action [employer] DIRECT Action [employer] DIRECT CONNECTORCARE DIRECT CONNECTORCARE DIRECT CONNECTORCARE DIRECT ORFORMERLY [facility] DIRECT Care Teams Revenue Cycle Consultant Relationship Specialty Start Date [place] [address] [email or web address] PCP - General 01/21/24 Additional Source Comments The information contained in this document represents components of the legal health record. It is not the complete legal health record.[facility]
== END 2025-04-11 13:12 | disposition home or self-care (01) ==
PROVIDERS: PCP Internal Medicine; Visit Provider Nurse Practitioner Family
DX: H53.149 Visual discomfort, unspecified (principal); H40.9 Unspecified glaucoma; G43.709 Chronic migraine without aura, not intractable, without status migrainosus; R51.0 Headache with orthostatic component, not elsewhere classified
CPT/HCPCS: 99214